=== PATIENT | male | born 1945 | race Caucasian/White ===

== ENCOUNTER 2021-09-26 11:06 | Emergency (ER) | payer OTHER ==
--- OUTSIDE RECORDS SUMMARY | 2021-09-26 11:16 | XMS REPORT | Continuity of Care Document ---
:1945 Author Organization [facility] t Address [address] [place] [address] [address]. [address] [place] [address] Care Team Providers Name Role Phone Messi Guillen Attending Clinician Unavailable Messi Guillen Attending Clinician Unavailable MADELEINE Attending Clinician Unavailable Thiago-Mbayo_A_AH Attending Clinician Unavailable SATURDAYARIANA Attending Clinician Unavailable Messi MURRAY Attending Clinician Unavailable Hany Miramontes DO Attending Clinician Lab, Fam Pob I Attending Clinician Unavailable Natalie HICKS, Nabil Attending Clinician Nabil PEREZ Attending Clinician Unavailable Messi Jim Attending Clinician Unavailable Doctor Unassigned, Name Attending Clinician Unavailable Chucky Montero MD Attending Clinician 2, Lab Attending Clinician Unavailable CHUCKY MONTERO Attending Clinician Unavailable CHUCKY MONTERO Attending Clinician Unavailable Neurology Attending Clinician Unavailable Messi Guillen Admitting Clinician Unavailable MADELEINE Admitting Clinician Unavailable Thiago-Mbayo_A_AH Admitting Clinician Unavailable JASS Admitting Clinician Unavailable Payers Payer Name Policy Type Policy Number Effective Date Expiration Date S [facility] OF [place] - [id number] 2019 [place] 00:00:00 (MEDICARE REPLACEMENT/ADVANT AGE - HMO) [employer] [place] [id number] 2020 PLUS CHOICE 00:00:00 Problems Condition Condition Condition Status Onset Resolution Last Treating Co mments Source Name Details Category Date Date Treatment Clinician Date Hyperchole Hyperchole Problem [facility] sterole[facility] sterolemia 4-06 Fa naren 00:00: Practic 00 e Gout Gout Problem Active [facility] Family 00:00: Practic 00 e 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 4-06 Fa naren disorder Disorder 00:00: Practi c 00 e Chronic Chronic Problem Active [facility] pain Pain 4-06 Family 00:00: Practic 00 e Essential Essential Problem Active Kang angelika hypertensi Hypertensi 4-06 Fa naren on on 00:00: Practic 00 e Benign Benign Problem Active [facility] prostatic Prostatic 4-06 Fami ly hyperplasi Hyperplasi 00:00: Pr actic a a 00 e 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 U nivers is is 1-11 ity of 00:00: [place] [facility] Lactic Lactic Disease Active 2016-09 Univers acid acid 1-11 it[facility] of increased increased 00:[place] [facility] Essential Essential Disease Active 2016-09 Uni vers hypertensi hypertensi 1-11 it y of on on 00:00: [place] [facility] Chest pain Chest pain Disease Active 2016-09 U nivers 1-10 ity of 00:00: [place] [facility] Branch Allergies, Adverse Reactions, Alerts Allergy Allergy Status Severity Reaction(s) Onset Inactive Treating Comm ents Source Name Type Date Date Clinician NO KNOWN Drug Active Univers ALLERGIE Class ity of S [facility] No Known Drug Active [facility] Social History Social Habit Start Date Stop Date Quantity Comments Source Sex Assigned At [facility]it y of [facility] Exposure to Not sure [facility] SARS-CoV-2 [facility] (event) [place] Tobacco use and 2020-08-01 2020-08-01 Never used Universit y of exposure 00:00:00 00:00:00 [facility] Alcohol intake 2020-08-01 2020-08-01 Current drinker Unive rsity of 00:00:00 00:00:00 of alcohol [place] [facility] (finding) Branch Alcohol Comment 2017-07-12 2017-07-1209/03 madelin Reyes y of 00:00:00 00:00:00 whiskey weekly [facility] Branch Smoking Status Start Date Stop Date Source Never smoker [facility] Medications Ordered Filled Start Stop Current Ordering Indication Dosage Frequency Signature Comments Components Source Medication Medication Date Date Medication? Clinician (SIG) Name Name atorvastati 2019-09 Yes 40mg Take 40 mg Univers n 40 mg 1-02 by mouth ity of tablet 14:57: at [place] 29 bedtime. Medical Branch acetaminoph 2019-09 Yes Take by Un valentín en 1-02 mouth ity of (TYLENOL) 14:57: every 6 [place] 325 mg 29 (six) Medical tablet hours as Branch needed. ibuprofen 2019-09 Yes 200mg Take 200 Uni vers 200 mg 1-02 mg by ity of tablet 14:57: mouth [place] 29 every 6 Medical (six) Branch hours as needed. atorvastati 2019-09 Yes 40mg Take 40 mg Univers n 40 mg 1-02 by mouth ity of tablet 14:57: at [place] 29 bedtime. Medical Branch acetaminoph 2019-09 Yes Take by Un valentín en 1-02 mouth ity of (TYLENOL) 14:57: every 6 [place] 325 mg 29 (six) Medical tablet hours as Branch needed. ibuprofen 2019-09 Yes 200mg Take 200 Uni vers 200 mg 1-02 mg by ity of tablet 14:57: mouth [place] 29 every 6 Medical (six) Branch hours as needed. atorvastati 2019-09 Yes 40mg Take 40 mg Univers n 40 mg 1-02 by mouth ity of tablet 14:57: at [place] 29 bedtime. Medical Branch acetaminoph 2019-09 Yes Take by Un valentín en 1-02 mouth ity of (TYLENOL) 14:57: every 6 [place] 325 mg 29 (six) Medical tablet hours as Branch needed. ibuprofen 2019-09 Yes 200mg Take 200 Uni vers 200 mg 1-02 mg by ity of tablet 14:57: mouth [place] 29 every 6 Medical (six) Branch hours as needed. atorvastati 2019-09 Yes 40mg Take 40 mg Univers n 40 mg 1-02 by mouth ity of tablet 14:57: at [place] 29 bedtime. Medical Branch acetaminoph 2019-09 Yes Take by Un valentín en 1-02 mouth ity of (TYLENOL) 14:57: every 6 [place] 325 mg 29 (six) Medical tablet hours as Branch needed. ibuprofen 2019-09 Yes 200mg Take 200 Uni vers 200 mg 1-02 mg by ity of tablet 14:57: mouth [place] 29 every 6 Medical (six) Branch hours as needed. atorvastati 2019-09 Yes 40mg Take 40 mg Univers n 40 mg 1-02 by mouth ity of tablet 14:57: at [place] 29 bedtime. Medical Branch acetaminoph 2019-09 Yes Take by Un valentín en 1-02 mouth ity of (TYLENOL) 14:57: every 6 [place] 325 mg 29 (six) Medical tablet hours as Branch needed. ibuprofen 2019-09 Yes 200mg Take 200 Uni vers 200 mg 1-02 mg by ity of tablet 14:57: mouth [place] 29 every 6 Medical (six) Branch hours as needed. atorvastati 2019-09 Yes 40mg Take 40 mg Univers n 40 mg 1-02 by mouth ity of tablet 14:57: at [place] 29 bedtime. Medical Branch acetaminoph 2019-09 Yes Take by Un valentín en 1-02 mouth ity of (TYLENOL) 14:57: every 6 [place] 325 mg 29 (six) Medical tablet hours as Branch needed. ibuprofen 2019-09 Yes 200mg Take 200 Uni vers 200 mg 1-02 mg by ity of tablet 14:57: mouth [place] 29 every 6 Medical (six) Branch hours as needed. atorvastati 2019-09 Yes 40mg Take 40 mg Univers n 40 mg 1-02 by mouth ity of tablet 14:57: at [place] 29 bedtime. Medical Branch acetaminoph 2019-09 Yes Take by Un valentín en 1-02 mouth ity of (TYLENOL) 14:57: every 6 [place] 325 mg 29 (six) Medical tablet hours as Branch needed. ibuprofen 2019-09 Yes 200mg Take 200 Uni vers 200 mg 1-02 mg by ity of tablet 14:57: mouth [place] 29 every 6 Medical (six) Branch hours as needed. atorvastati 2019-09 Yes 40mg Take 40 mg Univers n 40 mg 1-02 by mouth ity of tablet 14:57: at [place] 29 bedtime. Medical Branch acetaminoph 2019-09 Yes Take by Un valentín en 1-02 mouth ity of (TYLENOL) 14:57: every 6 [place] 325 mg 29 (six) Medical tablet hours as Branch needed. ibuprofen 2019-09 Yes 200mg Take 200 Uni vers 200 mg 1-02 mg by ity of tablet 14:57: mouth [place] 29 every 6 Medical (six) Branch hours as needed. atorvastati 2019-09 Yes 40mg Take 40 mg Univers n 40 mg 1-02 by mouth ity of tablet 14:57: at [place] 29 bedtime. Medical Branch acetaminoph 2019-09 Yes Take by Un valentín en 1-02 mouth ity of (TYLENOL) 14:57: every 6 [place] 325 mg 29 (six) Medical tablet hours as Branch needed. ibuprofen 2019-09 Yes 200mg Take 200 Uni vers 200 mg 1-02 mg by ity of tablet 14:57: mouth [place] 29 every 6 Medical (six) Branch hours as needed. atorvastati 2019-09 Yes 40mg Take 40 mg Univers n 40 mg 1-02 by mouth ity of tablet 14:57: at [place] 29 bedtime. Medical Branch acetaminoph 2019-09 Yes Take by Un valentín en 1-02 mouth ity of (TYLENOL) 14:57: every 6 [place] 325 mg 29 (six) Medical tablet hours as Branch needed. ibuprofen 2019-09 Yes 200mg Take 200 Uni vers 200 mg 1-02 mg by ity of tablet 14:57: mouth [place] 29 every 6 Medical (six) Branch hours as needed. atorvastati 2019-09 Yes 40mg Take 40 mg Univers n 40 mg 1-02 by mouth ity of tablet 14:57: at [place] 29 bedtime. Medical Branch acetaminoph 2019-09 Yes Take by Un valentín en 1-02 mouth ity of (TYLENOL) 14:57: every 6 [place] 325 mg 29 (six) Medical tablet hours as Branch needed. ibuprofen 2019-09 Yes 200mg Take 200 Uni vers 200 mg 1-02 mg by ity of tablet 14:57: mouth [place] 29 every 6 Medical (six) Branch hours as needed. atorvastati 2019-09 Yes 40mg Take 40 mg Univers n 40 mg 1-02 by mouth ity of tablet 14:57: at [place] 29 bedtime. Medical Branch acetaminoph 2019-09 Yes Take by Un valentín en 1-02 mouth ity of (TYLENOL) 14:57: every 6 [place] 325 mg 29 (six) Medical tablet hours as Branch needed. ibuprofen 2019-09 Yes 200mg Take 200 Uni vers 200 mg 1-02 mg by ity of tablet 14:57: mouth [place] 29 every 6 Medical (six) Branch hours as needed. atorvastati 2019-09 Yes 40mg Take 40 mg Univers n 40 mg 1-02 by mouth ity of tablet 14:57: at [place] 29 bedtime. Medical Branch acetaminoph 2019-09 Yes Take by Un valentín en 1-02 mouth ity of (TYLENOL) 14:57: every 6 [place] 325 mg 29 (six) Medical tablet hours as Branch needed. ibuprofen 2019-09 Yes 200mg Take 200 Uni vers 200 mg 1-02 mg by ity of tablet 14:57: mouth [place] 29 every 6 Medical (six) Branch hours as needed. atorvastati 2019-09 Yes 40mg Take 40 mg Univers n 40 mg 1-02 by mouth ity of tablet 14:57: at [place] 29 bedtime. Medical Branch acetaminoph 2019-09 Yes Take by Un valentín en 1-02 mouth ity of (TYLENOL) 14:57: every 6 [place] 325 mg 29 (six) Medical tablet hours as Branch needed. ibuprofen 2019-09 Yes 200mg Take 200 Uni vers 200 mg 1-02 mg by ity of tablet 14:57: mouth [place] 29 every 6 Medical (six) Branch hours as needed. atorvastati 2019-09 Yes 40mg Take 40 mg Univers n 40 mg 1-02 by mouth ity of tablet 14:57: at [place] 29 bedtime. Medical Branch acetaminoph 2019-09 Yes Take by Un valentín en 1-02 mouth ity of (TYLENOL) 14:57: every 6 [place] 325 mg 29 (six) Medical tablet hours as Branch needed. ibuprofen 2019-09 Yes 200mg Take 200 Uni vers 200 mg 1-02 mg by ity of tablet 14:57: mouth [place] 29 every 6 Medical (six) Branch hours as needed. atorvastati 2019-09 Yes 40mg Take 40 mg Univers n 40 mg 1-02 by mouth ity of tablet 14:57: at [place] 29 bedtime. Medical Branch acetaminoph 2019-09 Yes Take by Un valentín en 1-02 mouth ity of (TYLENOL) 14:57: every 6 [place] 325 mg 29 (six) Medical tablet hours as Branch needed. ibuprofen 2019-09 Yes 200mg Take 200 Uni vers 200 mg 1-02 mg by ity of tablet 14:57: mouth [place] 29 every 6 Medical (six) Branch hours as needed. foLIC acid 2019-09 Yes 1mg Take 1 mg Un valentín 1 mg tablet 02 by mouth ity of 14:53: daily. [address] Branch furosemide 2019-09 Yes 20mg Take 20 mg U nivers 20 mg 1-02 by mouth ity of tablet 14:53: weekly. [address] Branch magnesium 2019-09 Yes 400mg Take 400 Uni vers oxide 400 1-02 mg by ity of mg (241.3 14:53: mouth 2 [place] mg 03 (two) Medical magnesium) times Branch tablet daily. multivitami 2019-09 Yes 1{capsu Take 1 U nivers n capsule 02 le} capsule by ity of 14:53: mouth [place] 03 daily. Medical Branch Thiamine 2019-09 Yes Take by Unive rs Mononitrate 02 mouth ity of 100 mg Tab 14:53: daily. [address] Branch SERTRALINE 2019-09 Yes 50mg Take 50 mg U nivers HCL (ZOLOFT 02 by mouth ity of ORAL) 14:53: daily. [address] Branch allopurinol 2019-09 Yes 300mg Take 300 U nivers 300 mg 1-02 mg by ity of tablet 14:53: mouth [place] 03 daily. Medical Branch omeprazole 2019-09 Yes 40mg Take 40 mg U nivers 40 mg -02 by mouth ity of capsule 14:53: daily. [address] Branch amLODIPine 2019-09 Yes 2.5mg Take 2.5 Un valentín 2.5 mg 1-02 mg by ity of tablet 14:53: mouth 2 [place] 03 (two) Medical times Branch daily. atenolol 25 2019-09 Yes 25mg Take 25 mg Univers mg tablet 02 by mouth ity of 14:53: daily. [address] Branch foLIC acid 2019-09 Yes 1mg Take 1 mg Un valentín 1 mg tablet 02 by mouth ity of 14:53: daily. [address] furosemide 2019-09 Yes 20mg Take 20 mg U nivers 20 mg 1-02 by mouth ity of tablet 14:53: weekly. [address] Branch magnesium 2019-09 Yes 400mg Take 400 Uni vers oxide 400 1-02 mg by ity of mg (241.3 14:53: mouth 2 [place] mg 03 (two) Medical magnesium) times [place] tablet daily. multivitami 2019-09 Yes 1{capsu Take 1 U nivers n capsule 1- le} capsule by ity of 14:53: mouth daily. Medical Branch Thiamine 2019-09 Yes Take by Unive rs Mononitrate 1-02 mouth ity of 100 mg Tab 14:53: daily. [place] [facility] SERTRALINE 2019-09 Yes 50mg Take 50 mg U nivers HCL (ZOLOFT 02 by mouth ity of ORAL) 14:53: daily. [place] [facility] allopurinol 2019-09 Yes 300mg Take 300 U nivers 300 mg 1-02 mg by ity of tablet 14:53: mouth daily. Medical Branch omeprazole 2019-09 Yes 40mg Take 40 mg U nivers 40 mg 02 by mouth ity of capsule 14:53: daily. [place] [facility] Branch amLODIPine 2019-09 Yes 2.5mg Take 2.5 Un valentín 2.5 mg 1-02 mg by ity of tablet 14:53: mouth 2 [place] (two) Medical times Branch daily. atenolol 25 2019-09 Yes 25mg Take 25 mg Univers mg tablet 02 by mouth ity of 14:53: daily. [place] [facility] foLIC acid 2019-09 Yes 1mg Take 1 mg Un valentín 1 mg tablet 02 by mouth ity of 14:53: daily. [place] [facility] furosemide 2019-09 Yes 20mg Take 20 mg U nivers 20 mg -02 by mouth ity of tablet 14:53: weekly. [place] [facility] Branch magnesium 2019-09 Yes 400mg Take 400 Uni vers oxide 400 1-02 mg by ity of mg (241.3 14:53: mouth 2 [place] mg 03 (two) Medical magnesium) times [place] tablet daily. multivitami 2019-09 Yes 1{capsu Take 1 U nivers n capsule 1- le} capsule by ity of 14:53: mouth [place] daily. Medical Branch Thiamine 2019-09 Yes Take by Unive rs Mononitrate 1-02 mouth ity of 100 mg Tab 14:53: daily. [place] [facility] Branch SERTRALINE 2019-09 Yes 50mg Take 50 mg U nivers HCL (ZOLOFT 1-02 by mouth ity of ORAL) 14:53: daily. [address] Branch allopurinol 2019-09 Yes 300mg Take 300 U nivers 300 mg 1-02 mg by ity of tablet 14:53: mouth [place] daily. Medical Branch omeprazole 2019-09 Yes 40mg Take 40 mg U nivers 40 mg 1-02 by mouth ity of capsule 14:53: daily. [address] amLODIPine 2019-09 Yes 2.5mg Take 2.5 Un valentín 2.5 mg 1-02 mg by ity of tablet 14:53: mouth 2 [place] 03 (two) Medical times Branch daily. atenolol 25 2019-09 Yes 25mg Take 25 mg Univers mg tablet 02 by mouth ity of 14:53: daily. [address] foLIC acid 2019-09 Yes 1mg Take 1 mg Un valentín 1 mg tablet 02 by mouth ity of 14:53: daily. [address] furosemide 2019-09 Yes 20mg Take 20 mg U nivers 20 mg -02 by mouth ity of tablet 14:53: weekly. [address] magnesium 2019-09 Yes 400mg Take 400 Uni vers oxide 400 1-02 mg by ity of mg (241.3 14:53: mouth 2 [place] [address] (two) Medical magnesium) times Branch tablet daily. multivitami 2019-09 Yes 1{capsu Take 1 U nivers n capsule 02 le} capsule by ity of 14:53: mouth daily. Medical Branch Thiamine 2019-09 Yes Take by Unive rs Mononitrate 1-02 mouth ity of 100 mg Tab 14:53: daily. [address] Branch SERTRALINE 2019-09 Yes 50mg Take 50 mg U nivers HCL (ZOLOFT 1-02 by mouth ity of ORAL) 14:53: daily. [address] Branch allopurinol 2019-09 Yes 300mg Take 300 U nivers 300 mg 1-02 mg by ity of tablet 14:53: mouth [place] 03 daily. Medical Branch omeprazole 2019-09 Yes 40mg Take 40 mg U nivers 40 mg 1-02 by mouth ity of capsule 14:53: daily. [address] amLODIPine 2019-09 Yes 2.5mg Take 2.5 Un valentín 2.5 mg 1-02 mg by ity of tablet 14:53: mouth 2 [place] [address] (two) Medical times Branch daily. atenolol 25 2019-09 Yes 25mg Take 25 mg Univers mg tablet 02 by mouth ity of 14:53: daily. [address] foLIC acid 2019-09 Yes 1mg Take 1 mg Un valentín 1 mg tablet 02 by mouth ity of 14:53: daily. [address] furosemide 2019-09 Yes 20mg Take 20 mg U nivers 20 mg 1-02 by mouth ity of tablet 14:53: weekly. [address] magnesium 2019-09 Yes 400mg Take 400 Uni vers oxide 400 1-02 mg by ity of mg (241.3 14:53: mouth 2 [place] [address] (two) Medical magnesium) times [place] tablet daily. multivitami 2019-09 Yes 1{capsu Take 1 U nivers n capsule 09-03 le} capsule by ity of 14:53: mouth [place] [address] daily. Medical Branch Thiamine 2019-09 Yes Take by Unive rs Mononitrate 02 mouth ity of 100 mg Tab 14:53: daily. [address] SERTRALINE 2019-09 Yes 50mg Take 50 mg U nivers HCL (ZOLOFT 02 by mouth ity of ORAL) 14:53: daily. [address] allopurinol 2019-09 Yes 300mg Take 300 U nivers 300 mg 1-02 mg by ity of tablet 14:53: mouth [place] [address] daily. Medical Branch omeprazole 2019-09 Yes 40mg Take 40 mg U nivers 40 mg -02 by mouth ity of capsule 14:53: daily. [address] amLODIPine 2019-09 Yes 2.5mg Take 2.5 Un valentín 2.5 mg 1-02 mg by ity of tablet 14:53: mouth 2 [place] 03 (two) Medical times Branch daily. atenolol 25 2019-09 Yes 25mg Take 25 mg Univers mg tablet 02 by mouth ity of 14:53: daily. [address] foLIC acid 2019-09 Yes 1mg Take 1 mg Un valentín 1 mg tablet 02 by mouth ity of 14:53: daily. [address] furosemide 2019-09 Yes 20mg Take 20 mg U nivers 20 mg 1-02 by mouth ity of tablet 14:53: weekly. [place] [facility] magnesium 2019-09 Yes 400mg Take 400 Uni vers oxide 400 1-02 mg by ity of mg (241.3 14:53: mouth 2 [place] mg 03 (two) Medical magnesium) times Branch tablet daily. multivitami 2019-09 Yes 1{capsu Take 1 U nivers n capsule 1-02 le} capsule by ity of 14:53: mouth [place] daily. Medical Branch Thiamine 2019-09 Yes Take by Unive rs Mononitrate 1-02 mouth ity of 100 mg Tab 14:53: daily. [place] [facility] Branch SERTRALINE 2019-09 Yes 50mg Take 50 mg U nivers HCL (ZOLOFT 02 by mouth ity of ORAL) 14:53: daily. [place] [facility] Branch allopurinol 2019-09 Yes 300mg Take 300 U nivers 300 mg 1-02 mg by ity of tablet 14:53: mouth [place] daily. Medical Branch omeprazole 2019-09 Yes 40mg Take 40 mg U nivers 40 mg 02 by mouth ity of capsule 14:53: daily. [place] [facility] Branch amLODIPine 2019-09 Yes 2.5mg Take 2.5 Un valentín 2.5 mg 1-02 mg by ity of tablet 14:53: mouth 2 [place] (two) Medical times Branch daily. atenolol 25 2019-09 Yes 25mg Take 25 mg Univers mg tablet 02 by mouth ity of 14:53: daily. [place] [facility] Branch foLIC acid 2019-09 Yes 1mg Take 1 mg Un valentín 1 mg tablet 02 by mouth ity of 14:53: daily. [place] [facility] Branch furosemide 2019-09 Yes 20mg Take 20 mg U nivers 20 mg -02 by mouth ity of tablet 14:53: weekly. [place] [facility] Branch magnesium 2019-09 Yes 400mg Take 400 Uni vers oxide 400 1-02 mg by ity of mg (241.3 14:53: mouth 2 [place] mg (two) Medical magnesium) times [place] tablet daily. multivitami 2019-09 Yes 1{capsu Take 1 U nivers n capsule 1-02 le} capsule by ity of 14:53: mouth [place] daily. Medical Branch Thiamine 2019-09 Yes Take by Unive rs Mononitrate 1-02 mouth ity of 100 mg Tab 14:53: daily. [place] [facility] Branch SERTRALINE 2019-09 Yes 50mg Take 50 mg U nivers HCL (ZOLOFT 1-02 by mouth ity of ORAL) 14:53: daily. [place] [facility] Branch allopurinol 2019-09 Yes 300mg Take 300 U nivers 300 mg 1-02 mg by ity of tablet 14:53: mouth [place] daily. Medical Branch omeprazole 2019-09 Yes 40mg Take 40 mg U nivers 40 mg 1-02 by mouth ity of capsule 14:53: daily. [place] [facility] Branch amLODIPine 2019-09 Yes 2.5mg Take 2.5 Un valentín 2.5 mg 1-02 mg by ity of tablet 14:53: mouth 2 [place] 03 (two) Medical times Branch daily. atenolol 25 2019-09 Yes 25mg Take 25 mg Univers mg tablet 02 by mouth ity of 14:53: daily. [place] [facility] foLIC acid 2019-09 Yes 1mg Take 1 mg Un valentín 1 mg tablet 02 by mouth ity of 14:53: daily. [address] furosemide 2019-09 Yes 20mg Take 20 mg U nivers 20 mg 1-02 by mouth ity of tablet 14:53: weekly. [address] Branch magnesium 2019-09 Yes 400mg Take 400 Uni vers oxide 400 1-02 mg by ity of mg (241.3 14:53: mouth 2 [facility] 03 (two) Medical magnesium) times Branch tablet daily. multivitami 2019-09 Yes 1{capsu Take 1 U nivers n capsule 02 le} capsule by ity of 14:53: mouth daily. Medical Branch Thiamine 2019-09 Yes Take by Unive rs Mononitrate 1-02 mouth ity of 100 mg Tab 14:53: daily. [place] [facility] Branch SERTRALINE 2019-09 Yes 50mg Take 50 mg U nivers HCL (ZOLOFT 1-02 by mouth ity of ORAL) 14:53: daily. [address] Branch allopurinol 2019-09 Yes 300mg Take 300 U nivers 300 mg 1-02 mg by ity of tablet 14:53: mouth daily. Medical Branch omeprazole 2019-09 Yes 40mg Take 40 mg U nivers 40 mg 1-02 by mouth ity of capsule 14:53: daily. [address] amLODIPine 2019-09 Yes 2.5mg Take 2.5 Un valentín 2.5 mg 1-02 mg by ity of tablet 14:53: mouth 2 [place] 03 (two) Medical times Branch daily. atenolol 25 2019-09 Yes 25mg Take 25 mg Univers mg tablet 02 by mouth ity of 14:53: daily. [address] foLIC acid 2019-09 Yes 1mg Take 1 mg Un valentín 1 mg tablet 02 by mouth ity of 14:53: daily. [address] Branch furosemide 2019-09 Yes 20mg Take 20 mg U nivers 20 mg -02 by mouth ity of tablet 14:53: weekly. [address] Branch magnesium 2019-09 Yes 400mg Take 400 Uni vers oxide 400 1-02 mg by ity of mg (241.3 14:53: mouth 2 [place] [address] (two) Medical magnesium) times [place] tablet daily. multivitami 2019-09 Yes 1{capsu Take 1 U nivers n capsule 09-03 le} capsule by ity of 14:53: mouth [place] [address] daily. Medical Branch Thiamine 2019-09 Yes Take by Unive rs Mononitrate 02 mouth ity of 100 mg Tab 14:53: daily. [address] Branch SERTRALINE 2019-09 Yes 50mg Take 50 mg U nivers HCL (ZOLOFT 02 by mouth ity of ORAL) 14:53: daily. [address] Branch allopurinol 2019-09 Yes 300mg Take 300 U nivers 300 mg 1-02 mg by ity of tablet 14:53: mouth [place] daily. [facility] Branch omeprazole 2019-09 Yes 40mg Take 40 mg U nivers 40 mg 02 by mouth ity of capsule 14:53: daily. [address] amLODIPine 2019-09 Yes 2.5mg Take 2.5 Un valentín 2.5 mg 1-02 mg by ity of tablet 14:53: mouth 2 [place] 03 (two) Medical times Branch daily. atenolol 25 2019-09 Yes 25mg Take 25 mg Univers mg tablet 02 by mouth ity of 14:53: daily. [address] foLIC acid 2019-09 Yes 1mg Take 1 mg Un valentín 1 mg tablet 02 by mouth ity of 14:53: daily. [address] furosemide 2019-09 Yes 20mg Take 20 mg U nivers 20 mg 1-02 by mouth ity of tablet 14:53: weekly. [place] [facility] magnesium 2019-09 Yes 400mg Take 400 Uni vers oxide 400 1-02 mg by ity of mg (241.3 14:53: mouth 2 [place] mg 03 (two) Medical magnesium) times Branch tablet daily. multivitami 2019-09 Yes 1{capsu Take 1 U nivers n capsule 1-02 le} capsule by ity of 14:53: mouth [place] daily. Medical Branch Thiamine 2019-09 Yes Take by Unive rs Mononitrate 1-02 mouth ity of 100 mg Tab 14:53: daily. [place] [facility] Branch SERTRALINE 2019-09 Yes 50mg Take 50 mg U nivers HCL (ZOLOFT -02 by mouth ity of ORAL) 14:53: daily. [place] [facility] Branch allopurinol 2019-09 Yes 300mg Take 300 U nivers 300 mg 1-02 mg by ity of tablet 14:53: mouth [place] daily. Medical Branch omeprazole 2019-09 Yes 40mg Take 40 mg U nivers 40 mg -02 by mouth ity of capsule 14:53: daily. [place] [facility] Branch amLODIPine 2019-09 Yes 2.5mg Take 2.5 Un valentín 2.5 mg 1-02 mg by ity of tablet 14:53: mouth 2 [place] [address] (two) Medical times Branch daily. atenolol 25 2019-09 Yes 25mg Take 25 mg Univers mg tablet 02 by mouth ity of 14:53: daily. [place] [facility] foLIC acid 2019-09 Yes 1mg Take 1 mg Un valentín 1 mg tablet 02 by mouth ity of 14:53: daily. [place] [facility] Branch furosemide 2019-09 Yes 20mg Take 20 mg U nivers 20 mg 1-02 by mouth ity of tablet 14:53: weekly. [address] Branch magnesium 2019-09 Yes 400mg Take 400 Uni vers oxide 400 1-02 mg by ity of mg (241.3 14:53: mouth 2 [place] mg 03 (two) Medical magnesium) times Branch tablet daily. multivitami 2019-09 Yes 1{capsu Take 1 U nivers n capsule 1-02 le} capsule by ity of 14:53: mouth [place] daily. Medical Branch Thiamine 2020-1 Yes Take by Unive rs Mononitrate 1-02 mouth ity of 100 mg Tab 14:53: daily. [place] [facility] Branch SERTRALINE 2019-09 Yes 50mg Take 50 mg U nivers HCL (ZOLOFT 1-02 by mouth ity of ORAL) 14:53: daily. [place] [facility] Branch allopurinol 2019-09 Yes 300mg Take 300 U nivers 300 mg 1-02 mg by ity of tablet 14:53: mouth daily. Medical Branch omeprazole 2019-09 Yes 40mg Take 40 mg U nivers 40 mg 1-02 by mouth ity of capsule 14:53: daily. [place] [facility] Branch amLODIPine 2019-09 Yes 2.5mg Take 2.5 Un valentín 2.5 mg 1-02 mg by ity of tablet 14:53: mouth 2 [place] 03 (two) Medical times Branch daily. atenolol 25 2019-09 Yes 25mg Take 25 mg Univers mg tablet 02 by mouth ity of 14:53: daily. [address] foLIC acid 2019-09 Yes 1mg Take 1 mg Un valentín 1 mg tablet 02 by mouth ity of 14:53: daily. [address] furosemide 2019-09 Yes 20mg Take 20 mg U nivers 20 mg -02 by mouth ity of tablet 14:53: weekly. [address] Branch magnesium 2019-09 Yes 400mg Take 400 Uni vers oxide 400 1-02 mg by ity of mg (241.3 14:53: mouth 2 [facility] 03 (two) Medical magnesium) times Branch tablet daily. multivitami 2019-09 Yes 1{capsu Take 1 U nivers n capsule 02 le} capsule by ity of 14:53: mouth daily. Medical Branch Thiamine 2019-09 Yes Take by Unive rs Mononitrate 1-02 mouth ity of 100 mg Tab 14:53: daily. [place] [facility] Branch SERTRALINE 2019-09 Yes 50mg Take 50 mg U nivers HCL (ZOLOFT 1-02 by mouth ity of ORAL) 14:53: daily. [address] Branch allopurinol 2019-09 Yes 300mg Take 300 U nivers 300 mg 1-02 mg by ity of tablet 14:53: mouth daily. Medical Branch omeprazole 2019-09 Yes 40mg Take 40 mg U nivers 40 mg 1-02 by mouth ity of capsule 14:53: daily. [place] [facility] Branch amLODIPine 2019-09 Yes 2.5mg Take 2.5 Un valentín 2.5 mg 1-02 mg by ity of tablet 14:53: mouth 2 [place] 03 (two) Medical times Branch daily. atenolol 25 2019-09 Yes 25mg Take 25 mg Univers mg tablet -02 by mouth ity of 14:53: daily. [place] [facility] foLIC acid 2019-09 Yes 1mg Take 1 mg Un valentín 1 mg tablet 02 by mouth ity of 14:53: daily. [address] furosemide 2019-09 Yes 20mg Take 20 mg U nivers 20 mg 1-02 by mouth ity of tablet 14:53: weekly. [address] Branch magnesium 2019-09 Yes 400mg Take 400 Uni vers oxide 400 1-02 mg by ity of mg (241.3 14:53: mouth 2 [place] [address] (two) [facility] magnesium) times [place] tablet daily. multivitami 2019-09 Yes 1{capsu Take 1 U nivers n capsule 09-03 le} capsule by ity of 14:53: mouth [place] daily. Medical Branch Thiamine 2019-09 Yes Take by Unive rs Mononitrate 02 mouth ity of 100 mg Tab 14:53: daily. [address] Branch SERTRALINE 2019-09 Yes 50mg Take 50 mg U nivers HCL (ZOLOFT 02 by mouth ity of ORAL) 14:53: daily. [place] [facility] allopurinol 2019-09 Yes 300mg Take 300 U nivers 300 mg 1-02 mg by ity of tablet 14:53: mouth [place] daily. Medical Branch omeprazole 2019-09 Yes 40mg Take 40 mg U nivers 40 mg -02 by mouth ity of capsule 14:53: daily. [place] [facility] amLODIPine 2019-09 Yes 2.5mg Take 2.5 Un valentín 2.5 mg 1-02 mg by ity of tablet 14:53: mouth 2 [place] 03 (two) Medical times Branch daily. atenolol 25 2019-09 Yes 25mg Take 25 mg Univers mg tablet 02 by mouth ity of 14:53: daily. [address] foLIC acid 2019-09 Yes 1mg Take 1 mg Un valentín 1 mg tablet -02 by mouth ity of 14:53: daily. [address] Branch furosemide 2019-09 Yes 20mg Take 20 mg U nivers 20 mg 1-02 by mouth ity of tablet 14:53: weekly. [place] [facility] Branch magnesium 2019-09 Yes 400mg Take 400 Uni vers oxide 400 1-02 mg by ity of mg (241.3 14:53: mouth 2 [place] mg 03 (two) Medical magnesium) times [place] tablet daily. multivitami 2019-09 Yes 1{capsu Take 1 U nivers n capsule 1-02 le} capsule by ity of 14:53: mouth [place] daily. Medical Branch Thiamine 2019-09 Yes Take by Unive rs Mononitrate -02 mouth ity of 100 mg Tab 14:53: daily. [place] [facility] Branch SERTRALINE 2019-09 Yes 50mg Take 50 mg U nivers HCL (ZOLOFT 02 by mouth ity of ORAL) 14:53: daily. [place] [facility] Branch allopurinol 2019-09 Yes 300mg Take 300 U nivers 300 mg 1-02 mg by ity of tablet 14:53: mouth [place] daily. Medical Branch omeprazole 2019-09 Yes 40mg Take 40 mg U nivers 40 mg -02 by mouth ity of capsule 14:53: daily. [address] Branch amLODIPine 2019-09 Yes 2.5mg Take 2.5 Un valentín 2.5 mg 1-02 mg by ity of tablet 14:53: mouth 2 [place] 03 (two) Medical times Branch daily. atenolol 25 2019-09 Yes 25mg Take 25 mg Univers mg tablet 02 by mouth ity of 14:53: daily. [address] foLIC acid 2019-09 Yes 1mg Take 1 mg Un valentín 1 mg tablet 02 by mouth ity of 14:53: daily. [address] furosemide 2019-09 Yes 20mg Take 20 mg U nivers 20 mg 1-02 by mouth ity of tablet 14:53: weekly. [address] Branch magnesium 2019-09 Yes 400mg Take 400 Uni vers oxide 400 1-02 mg by ity of mg (241.3 14:53: mouth 2 [place] mg 03 (two) Medical magnesium) times [place] tablet daily. multivitami 2019-09 Yes 1{capsu Take 1 U nivers n capsule 1-02 le} capsule by ity of 14:53: mouth [place] daily. Medical Branch Thiamine 2019-09 Yes Take by Unive rs Mononitrate 1-02 mouth ity of 100 mg Tab 14:53: daily. [place] Medical Branch SERTRALINE 2019-09 Yes 50mg Take 50 mg U nivers HCL (ZOLOFT 1-02 by mouth ity of ORAL) 14:53: daily. [place] Medical Branch allopurinol 2019-09 Yes 300mg Take 300 U nivers 300 mg 1-02 mg by ity of tablet 14:53: mouth [place] daily. Medical Branch omeprazole 2019-09 Yes 40mg Take 40 mg U nivers 40 mg 1-02 by mouth ity of capsule 14:53: daily. [place] Medical [facility] amLODIPine 2019-09 Yes 2.5mg Take 2.5 Un valentín 2.5 mg 1-02 mg by ity of tablet 14:53: mouth 2 [place] 03 (two) Medical times Branch daily. atenolol 25 2019-09 Yes 25mg Take 25 mg Univers mg tablet 02 by mouth ity of 14:53: daily. [place] Medical Branch foLIC acid 2019-09 Yes 1mg Take 1 mg Un valentín 1 mg tablet 02 by mouth ity of 14:53: daily. [place] [facility] furosemide 2019-09 Yes 20mg Take 20 mg U nivers 20 mg -02 by mouth ity of tablet 14:53: weekly. [place] Medical Branch magnesium 2019-09 Yes 400mg Take 400 Uni vers oxide 400 1-02 mg by ity of mg (241.3 14:53: mouth 2 [facility] 03 (two) Medical magnesium) times Branch tablet daily. multivitami 2019-09 Yes 1{capsu Take 1 U nivers n capsule 1-02 le} capsule by ity of 14:53: mouth daily. Medical Branch Thiamine 2019-09 Yes Take by Unive rs Mononitrate 1-02 mouth ity of 100 mg Tab 14:53: daily. [place] Medical [facility] SERTRALINE 2019-09 Yes 50mg Take 50 mg U nivers HCL (ZOLOFT 1-02 by mouth ity of ORAL) 14:53: daily. [place] Medical Branch allopurinol 2019-09 Yes 300mg Take 300 U nivers 300 mg 1-02 mg by ity of tablet 14:53: mouth daily. Medical Branch omeprazole 2019-09 Yes 40mg Take 40 mg U nivers 40 mg 1-02 by mouth ity of capsule 14:53: daily. [place] [facility] Branch amLODIPine 2020- Yes 2.5mg Take 2.5 Un valentín 2.5 mg 1-02 mg by ity of tablet 14:53: mouth 2 [place] 03 (two) Medical times Branch daily. atenolol 25 2020- Yes 25mg Take 25 mg Univers mg tablet 1-02 by mouth ity of 14:53: daily. [place] Medical Branch gabapentin 2020- Yes [id number] 100mg Take 1 Univers 100 mg 1-02 capsule by ity of capsule 00:00: mouth 3 [place] (three) Medical times Branch daily. gabapentin 2020- Yes [id number] 100mg Take 1 Univers 100 mg 1-02 capsule by ity of capsule 00:00: mouth 3 [place] (three) Medical times Branch daily. gabapentin 2019- Yes [id number] 100mg Take 1 Univers 100 mg 1-02 capsule by ity of capsule 00:00: mouth 3 [place] (three) Medical times Branch daily. gabapentin 2020- Yes [id number] 100mg Take 1 Univers 100 mg 1-02 capsule by ity of capsule 00:00: mouth 3 [place] (three) Medical times Branch daily. gabapentin 2020-1 Yes [id number] 100mg Take 1 Univers 100 mg 1-02 capsule by ity of capsule 00:00: mouth 3 [place] (three) Medical times Branch daily. gabapentin 2020- Yes [id number] 100mg Take 1 Univers 100 mg 1-02 capsule by ity of capsule 00:00: mouth 3 [place] (three) Medical times Branch daily. gabapentin 2020- Yes [id number] 100mg Take 1 Univers 100 mg 1-02 capsule by ity of capsule 00:00: mouth 3 [place] (three) Medical times Branch daily. gabapentin 2020-1 Yes [id number] 100mg Take 1 Univers 100 mg 1-02 capsule by ity of capsule 00:00: mouth 3 [place] (three) Medical times Branch daily. gabapentin 2020-1 Yes [id number] 100mg Take 1 Univers 100 mg 1-02 capsule by ity of capsule 00:00: mouth 3 [place] (three) Medical times Branch daily. gabapentin 2020- Yes [id number] 100mg Take 1 Univers 100 mg 1-02 capsule by ity of capsule 00:00: mouth 3 [place] 00 (three) Medical times Branch daily. gabapentin 2020-1 Yes [id number] 100mg Take 1 Univers 100 mg 1-02 capsule by ity of capsule 00:00: mouth 3 [place] (three) Medical times Branch daily. gabapentin 2020-1 Yes [id number] 100mg Take 1 Univers 100 mg 1-02 capsule by ity of capsule 00:00: mouth 3 [place] 00 (three) Medical times Branch daily. gabapentin 2020-1 Yes [id number] 100mg Take 1 Univers 100 mg 1-02 capsule by ity of capsule 00:00: mouth 3 [place] (three) Medical times Branch daily. gabapentin 2020-1 Yes [id number] 100mg Take 1 Univers 100 mg 1-02 capsule by ity of capsule 00:00: mouth 3 [place] ([facility]) Medical times Branch daily. gabapentin 2020-1 Yes [id number] 100mg Take 1 Univers 100 mg 1-02 capsule by ity of capsule 00:00: mouth 3 [place] ([facility]) Medical times [place] daily. gabapentin 2020-1 Yes [id number] 100mg Take 1 Univers 100 mg 1-02 capsule by ity of capsule 00:00: mouth 3 [place] (three) Medical times [place] daily. SERTRALINE 2019-0 Yes 50mg Take 50 mg U nivers HCL (ZOLOFT 4-17 by mouth ity of ORAL) 16:42: daily. [address] SERTRALINE 2019-0 Yes 50mg Take 50 mg U nivers HCL (ZOLOFT 4-17 by mouth ity of ORAL) 16:42: daily. [address] SERTRALINE 2019-0 Yes 50mg Take 50 mg U nivers HCL (ZOLOFT 4-17 by mouth ity of ORAL) 16:42: daily. [address] Thiamine 2019-0 Yes Take by Unive rs Mononitrate 4-17 mouth ity of 100 mg Tab 16:42: daily. [address] Thiamine 2019-0 Yes Take by Unive rs Mononitrate 4-17 mouth ity of 100 mg Tab 16:42: daily. [address] Thiamine 2019-0 Yes Take by Unive rs Mononitrate 4-17 mouth ity of 100 mg Tab 16:42: daily. [address] allopurinol 2019-0 Yes 300mg Take 300 U nivers 300 mg 4-17 mg by ity of tablet 16:41: mouth [place] 48 daily. Medical Branch omeprazole [id number] Yes 40mg Take 40 mg U nivers 40 mg 4-17 by mouth ity of capsule 16:41: daily. [place] [address] Medical Branch multivitami 20190 Yes 1{capsu Take 1 U nivers n capsule 4-17 le} capsule by ity of 16:41: mouth [place] 48 daily. Medical Branch allopurinol 2019 Yes 300mg Take 300 U nivers 300 mg 4-17 mg by ity of tablet 16:41: mouth [place] 48 daily. Medical Branch omeprazole Yes 40mg Take 40 mg U nivers 40 mg 4-17 by mouth ity of capsule 16:41: daily. [address] Branch multivitami 0 Yes 1{capsu Take 1 U nivers n capsule 4-17 le} capsule by ity of 16:41: mouth [place] 48 daily. Medical Branch allopurinol Yes 300mg Take 300 U nivers 300 mg 4-17 mg by ity of tablet 16:41: mouth [place] 48 daily. Medical Branch omeprazole Yes 40mg Take 40 mg U nivers 40 mg 4-17 by mouth ity of capsule 16:41: daily. [address] Branch multivitami 0 Yes 1{capsu Take 1 U nivers n capsule 4-17 le} capsule by ity of 16:41: mouth [place] 48 daily. Medical Branch amLODIPine Yes 2.5mg Take 2.5 Un valentín 2.5 mg 4-17 mg by ity of tablet 16:41: mouth 2 [place] [address] (two) Medical times Branch daily. atenolol 25 Yes 25mg Take 25 mg Univers mg tablet 4-17 by mouth ity of 16:41: daily. [address] Branch foLIC acid 0 Yes 1mg Take 1 mg Un valentín 1 mg tablet 4-17 by mouth ity of 16:41: daily. [address] Branch furosemide 0 Yes 20mg Take 20 mg U nivers 20 mg 4-17 by mouth ity of tablet 16:41: weekly. [address] Branch magnesium Yes 400mg Take 400 Uni vers oxide 400 4-17 mg by ity of mg (241.3 16:41: mouth 2 [place] [address] (two) Medical magnesium) times Branch tablet daily. amLODIPine 0 Yes 2.5mg Take 2.5 Un valentín 2.5 mg 4-17 mg by ity of tablet 16:41: mouth 2 [place] [address] [place] Medical times Branch daily. atenolol 25 Yes 25mg Take 25 mg Univers mg tablet 4-17 by mouth ity of 16:41: daily. [address] foLIC acid 2019-0 Yes 1mg Take 1 mg Un valentín 1 mg tablet 4-17 by mouth ity of 16:41: daily. [address] furosemide 2019-0 Yes 20mg Take 20 mg U nivers 20 mg 4-17 by mouth ity of tablet 16:41: weekly. [address] magnesium 2018- Yes 400mg Take 400 Uni vers oxide 400 4-17 mg by ity of mg (241.3 16:41: mouth 2 [place] mg (two) Medical magnesium) times [place] tablet daily. amLODIPine 2019 Yes 2.5mg Take 2.5 Un valentín 2.5 mg 4-17 mg by ity of tablet 16:41: mouth 2 [place] [address] ([place] Medical times Branch daily. atenolol Yes 25mg Take 25 mg Univers mg tablet 4-17 by mouth ity of 16:41: daily. [address] foLIC acid 2018-0 Yes 1mg Take 1 mg Un valentín 1 mg tablet 4-17 by mouth ity of 16:41: daily. [address] furosemide 0 Yes 20mg Take 20 mg U nivers 20 mg 4-17 by mouth ity of tablet 16:41: weekly. [address] magnesium 2018-0 Yes 400mg Take 400 Uni vers oxide 400 4-17 mg by ity of mg (241.3 16:41: mouth 2 [place] mg (two) Medical magnesium) times Branch tablet daily. clonazePAM 2019-0 Yes [id number] .5mg Take 1 U nivers (KLONOPIN) 4-08 tablet by ity of 0.5 mg 00:00: mouth as [place] tablet 00 needed for Medical Other Branch (Anxiety not to exceed 3 times a day). clonazePAM 2019-0 Yes [id number] .5mg Take 1 U nivers (KLONOPIN) 4-08 tablet by ity of 0.5 mg 00:00: mouth as [place] tablet 00 needed for Medical Other Branch (Anxiety not to exceed 3 times a day). clonazePAM Yes [id number] .5mg Take 1 U nivers (KLONOPIN) -08 tablet by ity of 0.5 mg 00:00: mouth as [place] tablet 00 needed for Medical Other Branch (Anxiety not to exceed 3 times a day). clonazePAM 2020- No [id number] .5mg Take 1 Univers (KLONOPIN) 12-08 tablet by ity of 0.5 mg 00:00: 00:00 mouth as [place] tablet 00 :00 needed for Medical Other Branch (Anxiety not to exceed 3 times a day). clonazePAM 2019- No [id number] .5mg Take 1 Univers (KLONOPIN) 12-08 tablet by ity of 0.5 mg 00:00: 00:00 mouth as [place] tablet 00 :00 needed for Medical Other Branch (Anxiety not to exceed 3 times a day). allopurinol allopurinol No 1 Q1D allopurino [facility] 100 mg 100 mg l 100 mg Family tablet Take tablet Take tablet Practic 1 tablet 1 tablet Take 1 e every day every day tablet by oral by oral every day route. route. by oral route. aspirin 81 aspirin 81 No 1 Q1D aspirin 81 [place] mg mg mg Family tablet,quan tablet,quan tablet,del Practic yed release yed release ayed e Take 1 Take 1 release tablet tablet Take 1 every day every day tablet by oral by oral every day route. route. by oral route. atenolol 25 atenolol 25 No 1 Q1D atenolol [place] mg tablet mg tablet 25 mg Fami ly Take 1 Take 1 tablet Practic tablet tablet Take 1 e every day every day tablet by oral by oral every day route. route. by oral route. ezetimibe ezetimibe No 1 Q1D ezetimibe [facility] 10 mg 10 mg 10 mg Family tablet Take tablet Take tablet Practic 1 tablet 1 tablet Take 1 e every day every day tablet by oral by oral every day route. route. by oral route. folic acid folic acid No 1 Q1D folic acid [facility] 1 mg tablet 1 mg tablet 1 mg F amily Take 1 Take 1 tablet Practic tablet tablet Take 1 e every day every day tablet by oral by oral every day route. route. by oral route. multivitami multivitami No multivitam [place] n 1 tab a n 1 tab a in 1 tab a Family day day day Practic e tamsulosin tamsulosin No 1capsul Q1D tamsulosin [facility] 0.4 mg 0.4 mg e(s) 0.4 mg Family capsule capsule capsule Practi c Take 1 Take 1 Take 1 e capsule capsule capsule every day every day every day by oral by oral by oral route. route. route. tramadol 50 tramadol 50 No 1 Q6H tramadol [place] mg tablet mg tablet 50 mg Fami ly Take 1 Take 1 tablet Practic tablet tablet Take 1 e every 6 every 6 tablet hours by hours by every 6 oral route. oral route. hours by oral route. Zoloft 100 Zoloft 100 No 1 BID Zoloft 100 [place] mg tablet mg tablet mg tablet Family Take 1 Take 1 Take 1 Practic tablet tablet tablet e twice a day twice a day twice a by oral by oral day by route. route. oral route. Immunizations Ordered Filled Immunization Date Status Comments [facility] e Immunization Name Name influenza, influenza, 2020-08-02 Completed [facility] injectable, injectable, 00:00:00 Practice quadrivalent quadrivalent Pneumococcal 2017-07-13 Completed University o f Polysaccharide, 00:00:00 [place] Med ical PPSV23 (PNEUMOVAX) Branch Pneumococcal 2017-07-13 Completed University o f Polysaccharide, 00:00:00 [place] Med ical PPSV23 (PNEUMOVAX) Branch Pneumococcal 2017-07-13 Completed University o f Polysaccharide, 00:00:00 [place] Med ical PPSV23 (PNEUMOVAX) Branch Pneumococcal 2017-07-13 Completed University o f Polysaccharide, 00:00:00 [place] Med ical PPSV23 (PNEUMOVAX) Branch Pneumococcal 2017-07-13 Completed University o f Polysaccharide, 00:00:00 [place] Med ical PPSV23 (PNEUMOVAX) Branch Pneumococcal 2017-07-13 Completed University o f Polysaccharide, 00:00:00 [place] Med ical PPSV23 (PNEUMOVAX) Branch Pneumococcal 2017-07-13 Completed University o f Polysaccharide, 00:00:00 [place] Med ical PPSV23 (PNEUMOVAX) Branch Pneumococcal 2017-07-13 Completed University o f Polysaccharide, 00:00:00 [place] Med ical PPSV23 (PNEUMOVAX) Branch Pneumococcal 2017-07-13 Completed University o f Polysaccharide, 00:00:00 [place] Med ical PPSV23 (PNEUMOVAX) Branch Pneumococcal 2017-07-13 Completed University o f Polysaccharide, 00:00:00 [place] Med ical PPSV23 (PNEUMOVAX) Branch Pneumococcal 2017-07-13 Completed University o f Polysaccharide, 00:00:00 [place] Med ical PPSV23 (PNEUMOVAX) Branch Pneumococcal 2017-07-13 Completed University o f Polysaccharide, 00:00:00 [place] Med ical PPSV23 (PNEUMOVAX) Branch Pneumococcal 2017-07-13 Completed University o f Polysaccharide, 00:00:00 [place] Med ical PPSV23 (PNEUMOVAX) Branch Pneumococcal 2017-07-13 Completed University o f Polysaccharide, 00:00:00 [place] Med ical PPSV23 (PNEUMOVAX) Branch Pneumococcal 2017-07-13 Completed University o f Polysaccharide, 00:00:00 [place] Med ical PPSV23 (PNEUMOVAX) Branch Pneumococcal 2017-07-13 Completed University o f Polysaccharide, 00:00:00 [place] Med ical PPSV23 (PNEUMOVAX) Branch Pneumococcal 2017-07-13 Completed University o f Polysaccharide, 00:00:00 [place] Med ical PPSV23 (PNEUMOVAX) Branch Pneumococcal 2017-07-13 Completed University o f Polysaccharide, 00:00:00 [place] Med ical PPSV23 (PNEUMOVAX) Branch Pneumococcal 2017-07-13 Completed University o f Polysaccharide, 00:00:00 [place] Med ical PPSV23 (PNEUMOVAX) Branch Vital Signs Vital Name Observation Time Observation Value Comments Source Height/Length 2021-09-19 08:25:37 172 cm Measured Weight Dosing 2021-09-19 08:25:37 83 kg Height/Length 2021-09-19 08:23:58 172 cm Measured Weight Dosing 2021-09-19 08:23:58 83 kg Height/Length 2021-09-19 08:23:35 172 cm Measured Weight Dosing 2021-09-19 08:23:35 83 kg Height/Length 2021-09-19 08:23:13 172 cm Measured Weight Dosing 2021-09-19 08:23:13 83 kg Height/Length 2021-09-19 08:21:06 172 cm Measured Weight Dosing 2021-09-19 08:21:06 83 kg Height 2020-12-06 00:00:00 68 [in_i] [facility] Practice BMI (Body Mass 2020-12-06 00:00:00 28.1 kg/m2 [facility] Family Index) Practice Body Weight 2020-12-06 00:00:00 185 [lb_av] [facility] Family Practice Systolic blood 2020-08-01 21:36:00 132 mm[Hg] [facility] [place] pressure Medical Branch Diastolic blood 2020-08-01 21:36:00 77 mm[Hg] [facility] [place] pressure Medical Branch Heart rate 2020-08-01 21:36:00 71 /min [facility] [place] [facility] Body weight 2020-08-01 21:36:00 85.458 kg [facility] [place] [facility] BMI 2020-08-01 21:36:00 28.65 kg/m2 [facility] [place] [facility] Oxygen saturation 2020-08-01 21:36:00 98 /min Uni [facility] [place] in Arterial blood Medical Br anch by Pulse oximetry Systolic blood 2020-08-01 21:36:00 132 mm[Hg] [facility] [place] pressure Medical Branch Diastolic blood 2020-08-01 21:36:00 77 mm[Hg] [facility] [place] pressure Medical Branch Heart rate 2020-08-01 21:36:00 71 /min [facility] [place] [facility] Body weight 2020-08-01 21:36:00 85.458 kg [facility] [place] [facility] BMI 2020-08-01 21:36:00 28.65 kg/m2 [facility] [place] [facility] Oxygen saturation 2020-08-01 21:36:00 98 /min Uni vers[facility] [place] in Arterial blood Medical Br anch by Pulse oximetry Systolic blood 2020-07-04 14:54:00 120 mm[Hg] [facility] [place] pressure Medical Branch Diastolic blood 2020-07-04 14:54:00 80 mm[Hg] [facility] [place] pressure Medical Branch Heart rate 2020-07-04 14:54:00 66 /min [facility] [place] [facility] Body height 2020-07-04 14:54:00 172.7 cm [facility] [place] [facility] Body weight 2020-07-04 14:54:00 83.915 kg [facility] [place] [facility] BMI 2020-07-04 14:54:00 28.13 kg/m2 [facility] [place] [facility] Oxygen saturation 2020-07-04 14:54:00 97 /min [facility] [place] in Arterial blood Medical Br anch by Pulse oximetry Procedures Procedure Date / Time Performing Clinician Source Performed AUTHORIZATION FOR 2020-08-10 06:01:00 Doctor Unassigned, No [facility] RELEASE OF PHI Name Medical Branch EXTERNAL PROVIDER 2020-08-02 06:01:00 Doctor Unassigned, No [facility] RECORDS Name Medical Branch MR CERVICAL SPINE WO 2020-07-13 16:46:11 [facility] ASSIGNMENT OF BENEFITS 2020-07-04 14:42:37 Doctor Unassigned, No [facility] Name Medical Branch REFERRAL- 2020-06-14 05:01:00 Doctor Unassigned, No [facility] REQUEST/RESPONSE Name Medical Branch Plan of Care Planned Activity Planned Date Details Comments Source Instructions [facility] Encounters Start End Encounter Admission Attending Care Care Encounter Source Date/Time Date/Time Type Type Clinicians Facility Department ID 2019-08-21 Inpatient 3 Lissa Guillen [facility] [place] [id number] 06:33:00 Lissa Guillen [facility] 2021-03-22 2021-03-23 Outpatient [facility] [id number] [place] 00:00:00 00:00:00 CHENG [id number] Method i 2021-03-17 2021-03-17 Outpatient [facility] [id number] [place] 00:00:00 00:00:00 CHENG [id number] Method i 2021-03-17 2021-03-17 Outpatient [facility] [id number] [place] 00:00:00 00:00:00 CHENG [id number] Method i 2020-12-13 2020-12-13 Outpatient Thiago-Mbayo VFP VFP [id number] [facility] 03:57:00 03:57:00 _A_AH [id number] Family Practic e 2020-12-07 2020-12-07 Outpatient Thiago-Mbayo VFP VFP [id number] [facility] 10:11:00 10:11:00 _A_AH [id number] Family Practic e 2020-12-06 2020-12-06 Outpatient Thiago-Mbayo VFP VFP [id number] [facility] 12:17:00 12:17:00 _A_AH [id number] Family Practic e 2020-12-06 2020-12-06 Radha VFP [place] - [id number] V illage 00:00:00 00:00:00 [place] Fam mariposa bender, AIRCRAFT FUELER: Medical - Practi javier [address] [email or web address] [facility], [address], [place] [address] , Ph. 2020-12-02 2020-12-02 Outpatient SATURDAY, [facility] [facility] 09:49:00 23:59:00 PINKY 2020-11-27 2020-11-27 Outpatient [facility] [id number] Univers 14:15:00 14:15:00 [facility] 2020-10-30 2020-10-30 [facility] [id number] Univers 14:10:00 14:10:00 MAURICIO [facility] 2020-09-25 2020-09-25 [facility] 1.2.840.114 [id number] Univers 00:00:00 00:00:00 Outreach Benny PRIMARY 350.1.13.10 i [facility] 4.2.7.2.686 Verónica GALLARDO [phone] De dic[address] 2020-09-16 2020-09-16 Laboratory Lab, Adc Fam Pob I [facility] 1.2. 840.114 [id number] Univers 18:50:23 19:10:23 Only Pinky Perez [facility] 350.1.13.10 [facility] 4.2.7.2.686 Varun as Professio [phone] De dic[address] Office Building One 2020-09-16 2020-09-16 Outpatient R [facility] [id number] -[id number] Univers 19:00:00 19:00:00 [id number] [facility] 2020-09-16 2020-09-16 Outpatient R NATALIE [facility] [id number] Univers 19:00:00 19:00:00 PINKY garcia [facility] 2020-09-01 2020-09-01 Outpatient CHER Jim RI [id number] [facility] 12:00:00 12:00:00 Cheng [id number] [facility] 2020-08-10 2020-08-10 Orders Doctor SCAR 1.2.840.114 [id number] Univers 00:00:00 00:00:00 Only Unassigned, ADRIA 350.1.13.10 [facility] 4.2.7.2.686 Varun as [phone] [address] 2020-08-10 2020-08-10 Orders Doctor SCAR 1.2.840.114 [id number] 00:00:00 00:00:00 Only Unassigned, ADRIA 350.1.13.10 [facility] 4.2.7.2.686 [phone] [facility] 2020-08-08 2020-08-[address] [facility] 1.2.840.114 [id number] Univers 00:00:00 00:00:00 Jones Terrell 350.1.13.10 [place].2.[place] [phone] De dical nal 092 [facility] 2020-08-03 2020-08-03 Canteen Attendant 2, Adc Lab [facility] 1.2.840.114 [id number] Univers 14:37:20 14:52:20 Visit Jones Montero 350.1.13 .10 [facility] [place]2.7.2.[place] [phone] De dical nal 353 [facility] 2020-08-03 2020-08-03 Outpatient R [facility] [id number] Univers 14:45:00 14:45:00 [facility] 2020-08-03 2020-08-03 Outpatient R JONES MONTERO [facility] [id number] Univers 14:45:00 14:45:00 JONES MONTERO [facility] 2020-08-02 2020-08-02 Orders Doctor ABBOTT 1.2.840.114 [id number] Univers 00:00:00 00:00:00 Only Unassigned, ADRIA 350.1.13.10 [facility] 4.2.7.2.686 Varun as [phone] [facility] 00[address] [place] 2020-08-01 2020-08-[address] [facility] 1.2.840.114 [id number] Univers 15:31:57 15:51:57 Visit Jones Terrell 350.1.13.10 [place]2.7.2.[place] [phone] De dicpa nal [address] [place] [address] 2020-08-01 2020-08-[address] [facility] 1.2.840.114 [id number] 15:31:57 15:51:57 Visit Jones Terrell 350.1.13.10 [place] 4.2.7.2.686 Professio [phone] [address] 2020-08-01 2020-08-01 Outpatient JONES MONTERO [facility] [id number] Univers 15:40:00 15:40:00 TASHIAJONES ity [facility] 2020-08-01 2020-08-01 Outpatient R JONES MONTERO [facility] [id number] Univers 15:40:00 15:40:00 TASHIAJONES [facility] 2020-07-27 2020-07-27 Outpatient R JONES MONTERO [facility] [id number] Univers 00:00:00 00:00:00 TASHIAJONES [id number] [facility] 2020-07-26 2020-07-[address] [facility] 1.2.840.114 [id number] Univers 00:00:00 00:00:00 Jones Terrell 350.1.13.10 [place].2.[place] [phone] De dic[address] 2020-07-13 2020-07-13 [facility] Tashia [facility] 1.2.202.176 [id number] Univers 09:41:08 23:59:00 Encounter Jones Terrell 350.1.13.10 [facility].2.7.2.686 [place] [phone] [facility] 804 [place] 2020-07-13 2020-07-13 Outpatient JONES TORRES [facility] [id number] Univers 10:00:00 10:00:00 JONES MONTERO [id number] [facility] 2020-07-13 2020-07-13 Outpatient JONES TORRES [facility] [id number] Univers 00:00:00 00:00:00 JONES MONTERO [facility] 2020-07-04 2020-07-[address] [facility] 1.2.840.114 [id number] Univers 08:44:37 09:40:52 Visit Jones Terrell 350.1.13.10 [place]2.7.2.[place] [phone] De dical nal [address] [place] [address] 2020-07-04 2020-07-04 Outpatient JONES TORRES [facility] [id number] Univers 08:40:00 08:40:00 [facility] 2020-07-04 2020-07-04 Outpatient JONES TORRES [facility] [id number] Univers 08:40:00 08:40:00 JONES MONTERO [facility] 2020-07-04 2020-07-04 Orders Doctor SCAR 1.2.840.114 [id number] Univers 00:00:00 00:00:00 Only Unassigned, ADRIA 350.1.13.10 [facility] 4.2.7.2.686 Varun as [phone] [address] 2020-06-15 2020-06-[address] [facility] 1.2.069.126 [id number] Univers 00:00:00 00:00:00 (Out) Nidhi 350.1.13.10 i [place]2.7.2.[place] [phone] De dical nal 092 [facility] 2020-06-14 2020-06-14 Orders Doctor SCAR 1.2.840.114 [id number] Univers 00:00:00 00:00:00 Only Unassigned, ADRIA 350.1.13.10 [facility] 4.2.7.2.686 Varun as [phone] [facility] kimo [address] 2019-10-21 2019-10-21 Outpatient [place] VFP VFP [id number] [facility] 07:22:00 07:22:00 _A_ [id number] Family Practic e 2019-10-21 2019-10-21 Outpatient [place]iago[place] VFP VFP [id number] [facility] 07:22:00 07:22:00 _A_ [id number] Family Practic e Results Test Description Test Time Test Comments Results Result Sour e Comments - MRA NECK W/O 2020-08-04 CONT 1 13:42:00 [facility] 1945 Sex: M FAX: Cheng Jaimes [phone] Dayhoit: St: REG Name: DUSTY,GRETEL [facility] : 1945 Age/S: 75/M [address] [place] [address] Unit #: [id number] Loc: [place] [address] Phys: Cheng Jim MD Acct: [id number] Dis Date: Status: REG CLI PHONE #: [phone] Exam Date: 09/01/2020 1255 FAX #: [phone] Reason: DIZZY,VASHTI,SPINAL CORD COMPRESSION EXAMS: CPT CODE: [id number] MRA NECK W/O CONT 27566 EXAM: MRI BRAIN WITHOUT CONTRAST EXAM: MRA BRAIN WITHOUT CONTRAST EXAM: MRA NECK WITHOUT CONTRAST DATE: 09/01/2020 11:42 AM INDICATION: Dizziness. Suspected stroke. COMPARISON: None TECHNIQUE: - Multiplanar noncontrast MRI images of the brain. - Three-dimensional time of flight brain MR angiography of intracranial vessels is performed, and maximum intensity projection reformatted images are presented in multiple three-dimensional rotational projections. - Two-dimensional time of flight neck MR angiography of extracranial arterial system was performed and reformatted images are presented in three-dimensional maximum intensity rotational projections. Three-dimensional hjee-mf-uiafor MR angiography centered at the carotid bifurcations was included. FINDINGS: BRAIN MRI: No abnormality is present on the diffusion weighted images. No edema, hemorrhage, or extra axial collection is identified. There is no mass or mass-effect. Mild generalized volume loss is noted. Scattered FLAIR hyperintensities in the supratentorial white matter likely represent chronic small vessel ischemic changes. The ventricles and sulci are normal in size and shape. The basal cisterns are patent. The skull base, paranasal sinuses, and orbits have normal appearance. BRAIN MRA: There is no aneurysm, stenosis, vascular malformation or branch occlusion. NECK MRA: PAGE 1 Signed Report (CONTINUED) FAX: Cheng Jaimes [phone] Dayhoit: St: REG Name: GRETEL SULTANA [facility] : 1945 Age/S: 75/M [address] [place] [address] Unit #: [id number] Loc: [place] [address] Phys: Cheng Jim MD Acct: [id number] Dis Date: Status: REG CLI PHONE #: [phone] Exam Date: 09/01/2020 1252 FAX #: [phone] Reason: DIZZY,VASHTI,SPINAL CORD COMPRESSION EXAMS: CPT CODE: [id number] MRA NECK W/O CONT 88463 <Continued> Carotid circulation: The cervical common and internal carotid arteries have a normal caliber and contour. Tortuosity of the bilateral cervical internal carotid arteries is noted. No hemodynamically significant stenosis is identified at the carotid bifurcations. Vertebrobasilar circulation: The vertebral arteries have a normal course caliber and contour in the neck. IMPRESSION: 1. Negative MRI of the brain without contrast. Mild generalized volume loss and chronic small vessel ischemic changes in the supratentorial white matter. 2. Normal MRA of the brain without contrast 3. Normal MRA of the neck without contrast. All qualitative and quantitative assessments of carotid bifurcation and proximal internal carotid artery stenosis are made referencing the distal internal carotid artery (NASCET criteria). SL: [id number] at 1342 Reported and signed by: Filiberto Romero M.D. CC: Cheng Jim MD Technologist: RT Blanquita(R)(MR) Trnscrd Date/Time/By: 09/01/2020 (5966) : By: [email or web address] Orig Print D/T: S: 09/01/2020 (7804) PAGE 2 Signed Report - MRI BRAIN W/O 2020-08-04 CONT 1 13:42:00 [facility] 1945 Sex: M FAX: Cheng Jaimes [phone] Dayhoit: St: REG [facility] 1945 Age/S: 75/M [address] [place] [address] Unit #: [id number] Loc: [place] [address] Phys: Cheng Jim MD Acct: [id number] Dis Date: Status: REG CLI PHONE #: [phone] Exam Date: 09/01/2020 1256 FAX #: [phone] Reason: DIZZY,MONTEJO, SPINAL CORD COMPRESSION EXAMS: CPT CODE: [id number] MRI BRAIN W/O CONT 16394 EXAM: MRI BRAIN WITHOUT CONTRAST EXAM: MRA BRAIN WITHOUT CONTRAST EXAM: MRA NECK WITHOUT CONTRAST DATE: 09/01/2020 11:42 AM INDICATION: Dizziness. Suspected stroke. COMPARISON: None TECHNIQUE: - Multiplanar noncontrast MRI images of the brain. - Three-dimensional time of flight brain MR angiography of intracranial vessels is performed, and maximum intensity projection reformatted images are presented in multiple three-dimensional rotational projections. - Two-dimensional time of flight neck MR angiography of extracranial arterial system was performed and reformatted images are presented in three-dimensional maximum intensity rotational projections. Three-dimensional novt-ol-iqpdxz MR angiography centered at the carotid bifurcations was included. FINDINGS: BRAIN MRI: No abnormality is present on the diffusion weighted images. No edema, hemorrhage, or extra axial collection is identified. There is no mass or mass-effect. Mild generalized volume loss is noted. Scattered FLAIR hyperintensities in the supratentorial white matter likely represent chronic small vessel ischemic changes. The ventricles and sulci are normal in size and shape. The basal cisterns are patent. The skull base, paranasal sinuses, and orbits have normal appearance. BRAIN MRA: There is no aneurysm, stenosis, vascular malformation or branch occlusion. NECK MRA: PAGE 1 Signed Report (CONTINUED) FAX: Cheng Jaimes [phone] Dayhoit: St: REG [facility] 1945 Age/S: 75/M [address] [place] [address] Blvd Unit #: [id number] Loc: [place] [address] Phys: Cheng Jim MD Acct: [id number] Dis Date: Status: REG CLI PHONE #: [phone] Exam Date: 09/01/2020 1255 FAX #: [phone] Reason: DIZZY,MONTEJO, SPINAL CORD COMPRESSION EXAMS: CPT CODE: [id number] MRI BRAIN W/O CONT 06612 <Continued> Carotid circulation: The cervical common and internal carotid arteries have a normal caliber and contour. Tortuosity of the bilateral cervical internal carotid arteries is noted. No hemodynamically significant stenosis is identified at the carotid bifurcations. Vertebrobasilar circulation: The vertebral arteries have a normal course caliber and contour in the neck. IMPRESSION: 1. Negative MRI of the brain without contrast. Mild generalized volume loss and chronic small vessel ischemic changes in the supratentorial white matter. 2. Normal MRA of the brain without contrast 3. Normal MRA of the neck without contrast. All qualitative and quantitative assessments of carotid bifurcation and proximal internal carotid artery stenosis are made referencing the distal internal carotid artery (NASCET criteria). SL: [id number] at 1342 Reported and signed by: Filiberto Romero M.D. CC: Cheng Jim MD Technologist: RT Blanquita(R)(MR) Trnscrd Date/Time/By: 09/01/2020 (648) : By: Maria [email or web address] Orig Print D/T: S: 09/01/2020 (6541) PAGE 2 Signed Report - MRA HEAD W/O 2020-08-04 CONTRAST 1 13:42:00 [facility] 1945 Sex: M FAX: Cheng Jaimes [phone] Dayhoit: St: REG Name: GRETEL SULTANA [facility] [place] : 1945 Age/S: 75/M [address] [place] [address] Blvd Unit #: [id number] Loc: [place] [address] Phys: Cheng Jim MD Acct: [id number] Dis Date: Status: REG CLI PHONE #: [phone] Exam Date: 09/01/2020 1255 FAX #: [phone] Reason: DIZZY,MONTEJO,SPINAL CORD COMPRESSION EXAMS: CPT CODE: [id number] MRA HEAD W/O CONTRAST 40739 EXAM: MRI BRAIN WITHOUT CONTRAST EXAM: MRA BRAIN WITHOUT CONTRAST EXAM: MRA NECK WITHOUT CONTRAST DATE: 09/01/2020 11:42 AM INDICATION: Dizziness. Suspected stroke. COMPARISON: None TECHNIQUE: - Multiplanar noncontrast MRI images of the brain. - Three-dimensional time of flight brain MR angiography of intracranial vessels is performed, and maximum intensity projection reformatted images are presented in multiple three-dimensional rotational projections. - Two-dimensional time of flight neck MR angiography of extracranial arterial system was performed and reformatted images are presented in three-dimensional maximum intensity rotational projections. Three-dimensional hhxv-os-wgmmia MR angiography centered at the carotid bifurcations was included. FINDINGS: BRAIN MRI: No abnormality is present on the diffusion weighted images. No edema, hemorrhage, or extra axial collection is identified. There is no mass or mass-effect. Mild generalized volume loss is noted. Scattered FLAIR hyperintensities in the supratentorial white matter likely represent chronic small vessel ischemic changes. The ventricles and sulci are normal in size and shape. The basal cisterns are patent. The skull base, paranasal sinuses, and orbits have normal appearance. BRAIN MRA: There is no aneurysm, stenosis, vascular malformation or branch occlusion. NECK MRA: PAGE 1 Signed Report (CONTINUED) FAX: Cheng Jaimes [phone] Dayhoit: St: REG Name: GRETEL SULTANA [facility] : 1945 Age/S: 75/M [address] [place] [address] Blvd Unit #: [id number] Loc: [place] [address] Phys: Cheng Jim MD Acct: [id number] Dis Date: Status: REG CLI PHONE #: [phone] Exam Date: 09/01/2020 1255 FAX #: [phone] Reason: DIZZY,MONTEJO,SPINAL CORD COMPRESSION EXAMS: CPT CODE: [id number] MRA HEAD W/O CONTRAST 98709 <Continued> Carotid circulation: The cervical common and internal carotid arteries have a normal caliber and contour. Tortuosity of the bilateral cervical internal carotid arteries is noted. No hemodynamically significant stenosis is identified at the carotid bifurcations. Vertebrobasilar circulation: The vertebral arteries have a normal course caliber and contour in the neck. IMPRESSION: 1. Negative MRI of the brain without contrast. Mild generalized volume loss and chronic small vessel ischemic changes in the supratentorial white matter. 2. Normal MRA of the brain without contrast 3. Normal MRA of the neck without contrast. All qualitative and quantitative assessments of carotid bifurcation and proximal internal carotid artery stenosis are made referencing the distal internal carotid artery (NASCET criteria). SL: [id number] at 1342 Reported and signed by: Filiberto Romero M.D. CC: Cheng Jim MD Technologist: RT Blanquita(R)(MR) Trnscrd Date/Time/By: 09/01/2020 (6331) : By: Maria [email or web address] Orig Print D/T: S: 09/01/2020 (9041) PAGE 2 Signed Report - XR C-SPINE 6+V 2020-08-04 1 13:17:00 [facility] 1945 Sex: M FAX: Cheng Jaimes [phone] Dayhoit: St: REG Name: GRETEL SULTANA [facility] : 1945 Age/S: 75/M [address] [place] [address] Unit #: [id number] Loc: [place] [address] Phys: Cheng Jim MD Acct: [id number] Dis Date: Status: REG CLI PHONE #: [phone] Exam Date: 09/01/2020 1314 FAX #: [phone] Reason: DIZZY , HEADACHE, SPINAL CORD COMPRESSION EXAMS: CPT CODE: [id number] XR C-SPINE 6+V 43766 Procedure. Cervical Spine Radiographs. Clinical Indication: Dizziness, headache, spinal cord compression. Comparison: None. FINDINGS: The 7 views of the cervical spine including flexion and extension images show minimal approximately 2 mm anterior subluxation of C5 on C6, unchanged on the flexion and extension images. There is degenerative change at all levels including narrowing of the intervertebral disc spaces, marginal osteophyte formation and facet joint hypertrophy, most pronounced from C5 through T1. No acute displaced fracture. IMPRESSION: 1. Degenerative change as described with minimal subluxation of C5 on C6, likely degenerative and secondary to ligamentous laxity. Further assessment with MR imaging may be helpful if indicated clinically. SL: OCO-H at 1317 Reported and signed by: Rafael Harding M.D. CC: Cheng Jim MD Technologist: RT Darrius(R)(M) Trnscrd Date/Time/By: 09/01/2020 (9667) : By: Maria EstherTDO Orig Print D/T: S: 09/01/2020 (8220) PAGE 1 Signed Report MR CERVICAL 2020-07-03 HISTORY: Chronic neck Un iversity of SPINE WO 1 pain, headaches and [facility] CONTRAST 17:03:00 dizziness. TECHNIQUE: [facility] T1/T2/STIR sagittal and T1/T2 FRFSE/2D MERGE axial studies ofcervical spines were obtained. FINDINGS: No compression fracture or abnormal marrow changes of the bonesdetected. Spinal canal is of adequate size and no intrinsic cervical cordpathology detected. The anatomy of the craniocervical junction appearsnormal. C2-C3: Moderate hypertrophic right facet arthritis. C3-C4: Degenerative disc disease with narrowing of the peripheral portionsof the disc by more than 60%, disc osteophyte complex encroaching towardthe spinal canal with additional encroachment into the neural foramina byuncovertebral osteophytes and facet arthritis. Mild spinal and foraminalstenosis is noted without cord compression. Minimal bilateral nerve rootcompression noted. C4-C5: Mild degenerative changes of vertebral margins, disc osteophytecomplex encroaching into the spinal canal with encroachment also noted intothe neural foramina by uncovertebral osteophytes on both sides and by facetarthritis on the left side. Spinal stenosis noted causing mild flatteningof the left side of the spinal cord in AP dimension and the left nerve rootcompression. C5-C6: Deformity of 6 vertebral body noted, likely due to remote trauma.Minimal anterior listhesis of C5 over C6, osteophytes along the ventralvertebral margins, diffuse bulging of the disc encroaching into the spinalcanal without causing cord compression. Small uncovertebral osteophytesnoted encroaching into the neural foramina with additional encroachmentinto the right neural foramen by facet arthritis noted without cordcompression. Minimal bilateral nerve root compression suspected. C6-C7: Moderate degenerative disc disease with narrowing of the disc spaceby more than 50%, prominent osteophytes along the ventral vertebralmargins, slightly smaller disc osteophyte complex encroaching into thespinal canal causing mild diffuse flattening of the spinal cord in APdimension. Foraminal encroachment by uncovertebral osteophytes noted onboth sides causing bilateral nerve root compression. C7-T1: Minimal anterior listhesis of C7 over T1, minimal disc bulge,bilateral hypertrophic facet arthritis. Mild spinal and bilateral foraminalstenosis noted causing mild bilateral nerve root compression, slightly moreon the left side. CONCLUSIONS:1. Degenerative disc disease and facet arthritis at multiple levels withspinal stenosis causing flattening of the spinal cord in AP dimension atC6-C7, less at C4-C5 and C3-C4 levels.2. Foraminal encroachment by uncovertebral osteophytes and/or hypertrophicfacet arthritis causing mild bilateral nerve root compression at C6-C7,C7-T1, minimal bilateral nerve root compression at C5-C6, C3-C4 and leftnode compression at C4-C5.3. Old trauma suspected to C6 vertebral body and less to C7,T1 vertebralbodies. [facility], Radiant Results Inft User - 07/13/2020 11:04 AM CSTHISTORY: Chronic neck pain, headaches and dizziness.TECHNIQUE: T1/T2/STIR sagittal and T1/T2 FRFSE/2D MERGE axial studies ofcervical spines were obtained.FINDINGS: No compression fracture or abnormal marrow changes of the bonesdetected. Spinal canal is of adequate size and no intrinsic cervical cordpathology detected. The anatomy of the craniocervical junction appearsnormal.C2-C3: Moderate hypertrophic right facet arthritis.C3-C4: Degenerative disc disease with narrowing of the peripheral portionsof the disc by more than 60%, disc osteophyte complex encroaching towardthe spinal canal with additional encroachment into the neural foramina byuncovertebral osteophytes and facet arthritis. Mild spinal and foraminalstenosis is noted without cord compression. Minimal bilateral nerve rootcompression noted.C4-C5: Mild degenerative changes of vertebral margins, disc osteophytecomplex encroaching into the spinal canal with encroachment also noted intothe neural foramina by uncovertebral osteophytes on both sides and by facetarthritis on the left side. Spinal stenosis noted causing mild flatteningof the left side of the spinal cord in AP dimension and the left nerve rootcompression.C5-C6 : Deformity of 6 vertebral body noted, likely due to remote trauma.Minimal anterior listhesis of C5 over C6, osteophytes along the ventralvertebral margins, diffuse bulging of the disc encroaching into the spinalcanal without causing cord compression. Small uncovertebral osteophytesnoted encroaching into the neural foramina with additional encroachmentinto the right neural foramen by facet arthritis noted without cordcompression. Minimal bilateral nerve root compression suspected.C6-C7: Moderate degenerative disc disease with narrowing of the disc spaceby more than 50%, prominent osteophytes along the ventral vertebralmargins, slightly smaller disc osteophyte complex encroaching into thespinal canal causing mild diffuse flattening of the spinal cord in APdimension. Foraminal encroachment by uncovertebral osteophytes noted onboth sides causing bilateral nerve root compression.C7-T1: Minimal anterior listhesis of C7 over T1, minimal disc bulge,bilateral hypertrophic facet arthritis. Mild spinal and bilateral foraminalstenosis noted causing mild bilateral nerve root compression, slightly moreon the left side.CONCLUSIONS:1. Degenerative disc disease and facet arthritis at multiple levels withspinal stenosis causing flattening of the spinal cord in AP dimension atC6-C7, less at C4-C5 and C3-C4 levels.2. Foraminal encroachment by uncovertebral osteophytes and/or hypertrophicfacet arthritis causing mild bilateral nerve root compression at C6-C7,C7-T1, minimal bilateral nerve root compression at C5-C6, C3-C4 and leftnode compression at C4-C5.3. Old trauma suspected to C6 vertebral body and less to C7,T1 vertebralbodies. Magnesium Level 2019-09-02 05:23:01 Test Item Value Reference Range Interpretation Comme nts Magnesium Level (test code = Magnesium Level) 2.2 mg/dL 1.7-2.5 Phosphorus [id number] 05:23:01 Test Item Value Reference Range Interpretation Comments Phosphorus Level (test code = 4.40 mg/dL 2.70-4.50 Phosphorus Level) Basic Metabolic [id number] 05:23:00 Test Item Value Reference Range Interpretation Comments Sodium Level (test code = Sodium 132.0 mmol/L 135.0-145.0 L Level) Potassium Level (test code = 4.7 mmol/L 3.5-5.1 Potassium Level) Chloride Level (test code = 91 mmol/L 98-105 L Chloride Level) CO2 (test code = CO2) 28 mmol/L 22-29 Anion Gap (test code = Anion 13 mmol/L 7-16 Gap) BUN (test code = BUN) 27.10 mg/dL 8.00-23.00 H Creatinine Level (test code = 1.30 mg/dL 0.70-1.20 H Creatinine Level) BUN/Creat Ratio (test code = 21 N BUN/Creat Ratio) Glucose Level (test code = 125 mg/dL 70-115 H Glucose Level) Calcium Level (test code = 8.7 mg/dL 8.3-10.5 Calcium Level) Basic Metabolic [id number] 05:23:00 Test Item Value Reference Range Interpretation Comments Sodium Level (test 132.0 mmol/L 135.0-145.0 L code = Sodium Level) Potassium Level 4.7 mmol/L 3.5-5.1 (test code = Potassium Level) Chloride Level (test 91 mmol/L 98-105 L code = Chloride Level) CO2 (test code = 28 mmol/L 22-29 CO2) Anion Gap (test code 13 mmol/L 7-16 = Anion Gap) BUN (test code = 27.10 mg/dL 8.00-23.00 H BUN) Creatinine Level 1.30 mg/dL 0.70-1.20 H (test code = Creatinine Level) BUN/Creat Ratio 21 N (test code = BUN/Creat Ratio) Glucose Level (test 125 mg/dL 70-115 H code = Glucose Level) Calcium Level (test 8.7 mg/dL 8.3-10.5 code = Calcium Level) eGFR AA (test code = >60 N eGFR (e stimated eGFR AA) mL/min/1.73 m2 Glomerular Filtration Rate ) is an estimated va lue, calculated from the patient's serum creatinine usin g the MDRD equation. It is NOT the patient 's actual GFR. The eGFR provides a more clinically usef ul measure of kidn ey disease than se rum creatinine alone.This calculation judith es sex and race in to account, if the information is provided. If th e race is not provided, and t he patient is -Precious n, multiply by 1.2 12. If sex is not provided, and t he patient is fema le, multiply by 0.7 42. Results for pat ients <18 years of ag e have not been validated by th e MDRD study and should be interpreted wit h caution. eGFR R esult Interpretation: eGFR > or = 60 is in the Normal RangeeGF R < 60 may mean kid galen diseaseeGFR < 1 5 may mean kidney failure Rang es recommended by the National Kidney Foundation, http://nkdep.ni h.gov Basic Metabolic [id number] 05:23:00 Test Item Value Reference Range Interpretation Comments Sodium Level (test 132.0 mmol/L 135.0-145.0 L code = Sodium Level) Potassium Level 4.7 mmol/L 3.5-5.1 (test code = Potassium Level) Chloride Level (test 91 mmol/L 98-105 L code = Chloride Level) CO2 (test code = 28 mmol/L 22-29 CO2) Anion Gap (test code 13 mmol/L 7-16 = Anion Gap) BUN (test code = 27.10 mg/dL 8.00-23.00 H BUN) Creatinine Level 1.30 mg/dL 0.70-1.20 H (test code = Creatinine Level) BUN/Creat Ratio 21 N (test code = BUN/Creat Ratio) Glucose Level (test 125 mg/dL 70-115 H code = Glucose Level) Calcium Level (test 8.7 mg/dL 8.3-10.5 code = Calcium Level) eGFR AA (test code = >60 N eGFR (e stimated eGFR AA) mL/min/1.73 m2 Glomerular Filtration Rate ) is an estimated va lue, calculated from the patient's serum creatinine usin g the MDRD equation. It is NOT the patient 's actual GFR. The eGFR provides a more clinically usef ul measure of kidn ey disease than se rum creatinine alone.This calculation judith es sex and race in to account, if the information is provided. If th e race is not provided, and t he patient is -Precious n, multiply by 1.2 12. If sex is not provided, and t he patient is fema le, multiply by 0.7 42. Results for pat ients <18 years of ag e have not been validated by [facility] and should be interpreted wit h caution. eGFR R esult Interpretation: eGFR > or = 60 is in the Normal RangeeGF R < 60 may mean kid galen diseaseeGFR < 1 5 may mean kidney failure Rang es recommended by the National Kidney Foundation, http://nkdep.ni h.gov eGFR Non-AA (test 53.96 N eGFR (amalia mated code = eGFR Non-AA) mL/min/1.73 m2 Glomer ular Filtration Rate ) is an estimated va lue, calculated from the patient's serum creatinine usin g the MDRD equation. It is NOT the patient 's actual GFR. The eGFR provides a more clinically usef ul measure of kidn ey disease than se rum creatinine alone.This calculation judith es sex and race in to account, if the information is provided. If th e race is not provided, and t he patient is -Precious n, multiply by 1.2 12. If sex is not provided, and t he patient is fema le, multiply by 0.7 42. Results for pat ients <18 years of ag e have not been validated by [facility] and should be interpreted wit h caution. eGFR R esult Interpretation: eGFR > or = 60 is in the Normal RangeeGF R < 60 may mean kid galen diseaseeGFR < 1 5 may mean kidney failure Rang es recommended by the National Kidney Foundation, http://nkdep.ni h.gov Complete Blood Count with [id number] 05:07:24 Test Item Value Reference Range Interpretation Comments WBC (test code = WBC) 12.2 x10 4.4-10.5 H RBC (test code = RBC) 3.66 x10 4.10-5.70 L Hgb (test code = Hgb) 12.4 g/dL 13.4-17.4 L Hct (test code = Hct) 37.0 % 38.7-52.0 L MCV (test code = MCV) 101.10 fL 80.00-100.00 H MCHC (test code = 33.50 g/dL 32.00-37.50 MCHC) MCH (test code = MCH) 33.9 pg 27.0-32.5 H RDW CV (test code = 13.7 % 11.5-14.5 RDW CV) Platelets (test code = 334.0 x10 140.0-440.0 Platelets) MPV (test code = MPV) 10.1 fL N Slide Review (test Auto Auto Result cr eated by code = Slide Review) GL_SJM_ SLIDE_REV_AUTO nRBC (test code = 0 N nRBC) NRBC Abs (test code = 0.00 x10 N NRBC Abs) IPF (test code = IPF) 0 % N Automated [id number] 05:07:24 Test Item Value Reference Range Interpretation Comments Neutro Auto (test code = Neutro 73.1 % 36.0-70.0 H Auto) Lymph Auto (test code = Lymph Auto) 13.7 % 12.0-44.0 Tyrrell Auto (test code = Tyrrell Auto) 7.5 % 0.0-11.0 Eos, Auto (test code = Eos, Auto) 4.1 % 0.0-7.0 Basophil Auto (test code = Basophil 0.4 % 0.0-2.0 Auto) Neutro Absolute (test code = Neutro 8.9 x10 1.6-7.4 H Absolute) Lymph Absolute (test code = Lymph 1.68 x10 .50-4.60 Absolute) Tyrrell Absolute (test code = Tyrrell .92 x10 .00-1.20 Absolute) Eos Absolute (test code = Eos 0.50 x10 0.00-0.74 Absolute) Baso Absolute (test code = Baso 0.05 x10 0.00-0.21 Absolute) IG [id number] 05:07:24 Test Item Value Reference Range Interpretation Comments IG (test code = IG) 1.2 % 0.0-5.0 IG Abs (test code = IG Abs) 0 x10 N POC [id number] 21:50:57 Test Item Value Reference Range Interpretation Comments Glucose POC (test 126 mg/dL 70-115 H If you con operator vacuum your code = Glucose POC) patient critically ill, the Sue-Accu Check Infrom II meter should not be used for Glucose determination. Draw a venous Glucose and send to the main Lab for analysis. Basic Metabolic [id number] 06:31:27 Test Item Value Reference Range Interpretation Comments Sodium Level (test code = Sodium 136.0 mmol/L 135.0-145.0 Level) Potassium Level (test code = 5.0 mmol/L 3.5-5.1 Potassium Level) Chloride Level (test code = 96 mmol/L 98-105 L Chloride Level) CO2 (test code = CO2) 29 mmol/L 22-29 Anion Gap (test code = Anion 11 mmol/L 7-16 Gap) BUN (test code = BUN) 26.80 mg/dL 8.00-23.00 H Creatinine Level (test code = 1.30 mg/dL 0.70-1.20 H Creatinine Level) BUN/Creat Ratio (test code = 21 N BUN/Creat Ratio) Glucose Level (test code = 112 mg/dL 70-115 Glucose Level) Calcium Level (test code = 8.9 mg/dL 8.3-10.5 Calcium Level) Magnesium [id number] 06:31:27 Test Item Value Reference Range Interpretation Comments Magnesium Level (test code = 1.9 mg/dL 1.7-2.5 Magnesium Level) Basic Metabolic [id number] 06:31:27 Test Item Value Reference Range Interpretation Comments Sodium Level (test 136.0 mmol/L 135.0-145.0 code = Sodium Level) Potassium Level 5.0 mmol/L 3.5-5.1 (test code = Potassium Level) Chloride Level (test 96 mmol/L 98-105 L code = Chloride Level) CO2 (test code = 29 mmol/L 22-29 CO2) Anion Gap (test code 11 mmol/L 7-16 = Anion Gap) BUN (test code = 26.80 mg/dL 8.00-23.00 H BUN) Creatinine Level 1.30 mg/dL 0.70-1.20 H (test code = Creatinine Level) BUN/Creat Ratio 21 N (test code = BUN/Creat Ratio) Glucose Level (test 112 mg/dL 70-115 code = Glucose Level) Calcium Level (test 8.9 mg/dL 8.3-10.5 code = Calcium Level) eGFR AA (test code = >60 N eGFR (e stimated eGFR AA) mL/min/1.73 m2 Glomerular Filtration Rate ) is an estimated va lue, calculated from the patient's serum creatinine usin g the MDRD equation. It is NOT the patient 's actual GFR. The eGFR provides a more clinically usef ul measure of kidn ey disease than se rum creatinine alone.This calculation judith es sex and race in to account, if the information is provided. If th e race is not provided, and t he patient is -Precious n, multiply by 1.2 12. If sex is not provided, and t he patient is fema le, multiply by 0.7 42. Results for pat ients <18 years of ag e have not been validated by th e MDRD study and should be interpreted wit h caution. eGFR R esult Interpretation: eGFR > or = 60 is in the Normal RangeeGF R < 60 may mean kid galen diseaseeGFR < 1 5 may mean kidney failure Rang es recommended by the National Kidney Foundation, http://nkdep.ni h.gov Basic Metabolic [id number] 06:31:27 Test Item Value Reference Range Interpretation Comments Sodium Level (test 136.0 mmol/L 135.0-145.0 code = Sodium Level) Potassium Level 5.0 mmol/L 3.5-5.1 (test code = Potassium Level) Chloride Level (test 96 mmol/L 98-105 L code = Chloride Level) CO2 (test code = 29 mmol/L 22-29 CO2) Anion Gap (test code 11 mmol/L 7-16 = Anion Gap) BUN (test code = 26.80 mg/dL 8.00-23.00 H BUN) Creatinine Level 1.30 mg/dL 0.70-1.20 H (test code = Creatinine Level) BUN/Creat Ratio 21 N (test code = BUN/Creat Ratio) Glucose Level (test 112 mg/dL 70-115 code = Glucose Level) Calcium Level (test 8.9 mg/dL 8.3-10.5 code = Calcium Level) eGFR AA (test code = >60 N eGFR (e stimated eGFR AA) mL/min/1.73 m2 Glomerular Filtration Rate ) is an estimated va lue, calculated from the patient's serum creatinine usin g the MDRD equation. It is NOT the patient 's actual GFR. The eGFR provides a more clinically usef ul measure of kidn ey disease than se rum creatinine alone.This calculation judith es sex and race in to account, if the information is provided. If th e race is not provided, and t he patient is -Precious n, multiply by 1.2 12. If sex is not provided, and t he patient is fema le, multiply by 0.7 42. Results for pat ients <18 years of ag e have not been validated by [facility] and should be interpreted wit h caution. eGFR R esult Interpretation: eGFR > or = 60 is in the Normal RangeeGF R < 60 may mean kid galen diseaseeGFR < 1 5 may mean kidney failure Rang es recommended by the National Kidney Foundation, http://nkdep.ni h.gov eGFR Non-AA (test 53.96 N eGFR (amalia mated code = eGFR Non-AA) mL/min/1.73 m2 Glomer ular Filtration Rate ) is an estimated va lue, calculated from the patient's serum creatinine usin g the MDRD equation. It is NOT the patient 's actual GFR. The eGFR provides a more clinically usef ul measure of kidn ey disease than se rum creatinine alone.This calculation judith es sex and race in to account, if the information is provided. If th e race is not provided, and t he patient is -Precious n, multiply by 1.2 12. If sex is not provided, and t he patient is fema le, multiply by 0.7 42. Results for pat ients <18 years of ag e have not been validated by [facility] and should be interpreted wit h caution. eGFR R esult Interpretation: eGFR > or = 60 is in the Normal RangeeGF R < 60 may mean kid galen diseaseeGFR < 1 5 may mean kidney failure Rang es recommended by the National Kidney Foundation, http://nkdep.ni h.gov Complete Blood Count with [id number] 05:55:08 Test Item Value Reference Range Interpretation Comments WBC (test code = WBC) 12.2 x10 4.4-10.5 H RBC (test code = RBC) 3.36 x10 4.10-5.70 L Hgb (test code = Hgb) 11.3 g/dL 13.4-17.4 L Hct (test code = Hct) 33.7 % 38.7-52.0 L MCV (test code = MCV) 100.30 fL 80.00-100.00 H MCHC (test code = 33.50 g/dL 32.00-37.50 MCHC) RDW CV (test code = 13.5 % 11.5-14.5 RDW CV) MCH (test code = MCH) 33.6 pg 27.0-32.5 H Platelets (test code = 247.0 x10 140.0-440.0 Platelets) MPV (test code = MPV) 10.4 fL N Slide Review (test Auto Auto Result cr eated by code = Slide Review) GL_SJM_ SLIDE_REV_AUTO nRBC (test code = 0 N nRBC) NRBC Abs (test code = 0.00 x10 N NRBC Abs) IPF (test code = IPF) 0 % N Automated [id number] 05:55:08 Test Item Value Reference Range Interpretation Comments Neutro Auto (test code = Neutro 73.7 % 36.0-70.0 H Auto) Lymph Auto (test code = Lymph Auto) 11.9 % 12.0-44.0 L Tyrrell Auto (test code = Tyrrell Auto) 9.3 % 0.0-11.0 Eos, Auto (test code = Eos, Auto) 3.3 % 0.0-7.0 Basophil Auto (test code = Basophil 0.5 % 0.0-2.0 Auto) Neutro Absolute (test code = Neutro 9.0 x10 1.6-7.4 H Absolute) Lymph Absolute (test code = Lymph 1.46 x10 .50-4.60 Absolute) Tyrrell Absolute (test code = Tyrrell 1.14 x10 .00-1.20 Absolute) Eos Absolute (test code = Eos 0.40 x10 0.00-0.74 Absolute) Baso Absolute (test code = Baso 0.06 x10 0.00-0.21 Absolute) IG [id number] 05:55:08 Test Item Value Reference Range Interpretation Comments IG (test code = IG) 1.3 % 0.0-5.0 IG Abs (test code = IG Abs) 0 x10 N POC [id number] 08:05:25 Test Item Value Reference Range Interpretation Comments Glucose POC (test 98 mg/dL 70-115 If you con operator vacuum your code = Glucose POC) patient critically ill, the Sue-Accu Check Infrom II meter should not be used for Glucose determination. Draw a venous Glucose and send to the main Lab for analysis. Comprehensive Metabolic [id number] 06:52:14 Test Item Value Reference Range Interpretation Comments Sodium Level (test code = Sodium 135.0 mmol/L 135.0-145.0 Level) Potassium Level (test code = 4.2 mmol/L 3.5-5.1 Potassium Level) Chloride Level (test code = 96 mmol/L 98-105 L Chloride Level) CO2 (test code = CO2) 23 mmol/L 22-29 Anion Gap (test code = Anion 16 mmol/L 7-16 Gap) BUN (test code = BUN) 22.80 mg/dL 8.00-23.00 Creatinine Level (test code = 1.20 mg/dL 0.70-1.20 Creatinine Level) BUN/Creat Ratio (test code = 19 N BUN/Creat Ratio) Glucose Level (test code = 90 mg/dL 70-115 Glucose Level) Calcium Level (test code = 8.4 mg/dL 8.3-10.5 Calcium Level) Alk Phos (test code = Alk Phos) 123 U/L 40-129 Bilirubin Total (test code = 0.7 mg/dL 0.1-0.9 Bilirubin Total) Albumin Level (test code = 2.9 g/dL 3.5-5.2 L Albumin Level) Protein Total (test code = 5.3 g/dL 6.4-8.3 L Protein Total) ALT (test code = ALT) 35 U/L 1-41 AST (test code = AST) 58 U/L 1-40 H Globulin (test code = Globulin) 2.4 g/dL 2.9-3.1 L A/G Ratio (test code = A/G 1.2 ratio N Ratio) Comprehensive Metabolic [id number] 06:52:14 Test Item Value Reference Range Interpretation Comments Sodium Level (test 135.0 mmol/L 135.0-145.0 code = Sodium Level) Potassium Level 4.2 mmol/L 3.5-5.1 (test code = Potassium Level) Chloride Level (test 96 mmol/L 98-105 L code = Chloride Level) CO2 (test code = 23 mmol/L 22-29 CO2) Anion Gap (test code 16 mmol/L 7-16 = Anion Gap) BUN (test code = 22.80 mg/dL 8.00-23.00 BUN) Creatinine Level 1.20 mg/dL 0.70-1.20 (test code = Creatinine Level) BUN/Creat Ratio 19 N (test code = BUN/Creat Ratio) Glucose Level (test 90 mg/dL 70-115 code = Glucose Level) Calcium Level (test 8.4 mg/dL 8.3-10.5 code = Calcium Level) Alk Phos (test code 123 U/L 40-129 = Alk Phos) Bilirubin Total 0.7 mg/dL 0.1-0.9 (test code = Bilirubin Total) Albumin Level (test 2.9 g/dL 3.5-5.2 L code = Albumin Level) Protein Total (test 5.3 g/dL 6.4-8.3 L code = Protein Total) ALT (test code = 35 U/L 1-41 ALT) AST (test code = 58 U/L 1-40 H AST) Globulin (test code 2.4 g/dL 2.9-3.1 L = Globulin) A/G Ratio (test code 1.2 ratio N = A/G Ratio) eGFR AA (test code = >60 N eGFR (e stimated eGFR AA) mL/min/1.73 m2 Glomerular Filtration Rate ) is an estimated va lue, calculated from the patient's serum creatinine usin g the MDRD equation. It is NOT the patient 's actual GFR. The eGFR provides a more clinically usef ul measure of kidn ey disease than se rum creatinine alone.This calculation judith es sex and race in to account, if the information is provided. If th e race is not provided, and t he patient is -Precious n, multiply by 1.2 12. If sex is not provided, and t he patient is fema le, multiply by 0.7 42. Results for pat ients <18 years of ag e have not been validated by [facility] and should be interpreted wit h caution. eGFR R esult Interpretation: eGFR > or = 60 is in the Normal RangeeGF R < 60 may mean kid galen diseaseeGFR < 1 5 may mean kidney failure Rang es recommended by the National Kidney Foundation, http://nkdep.ni h.gov eGFR Non-AA (test 59.18 N eGFR (amalia mated code = eGFR Non-AA) mL/min/1.73 m2 Glomer ular Filtration Rate ) is an estimated va lue, calculated from the patient's serum creatinine usin g the MDRD equation. It is NOT the patient 's actual GFR. The eGFR provides a more clinically usef ul measure of kidn ey disease than se rum creatinine alone.This calculation judith es sex and race in to account, if the information is provided. If th e race is not provided, and t he patient is -Precious n, multiply by 1.2 12. If sex is not provided, and t he patient is fema le, multiply by 0.7 42. Results for pat ients <18 years of ag e have not been validated by [facility] and should be interpreted wit h caution. eGFR R esult Interpretation: eGFR > or = 60 is in the Normal RangeeGF R < 60 may mean kid galen diseaseeGFR < 1 5 may mean kidney failure Rang es recommended by the National Kidney Foundation, http://nkdep.ni h.gov Comprehensive Metabolic [id number] 06:52:14 Test Item Value Reference Range Interpretation Comments Sodium Level (test 135.0 mmol/L 135.0-145.0 code = Sodium Level) Potassium Level 4.2 mmol/L 3.5-5.1 (test code = Potassium Level) Chloride Level (test 96 mmol/L 98-105 L code = Chloride Level) CO2 (test code = 23 mmol/L 22-29 CO2) Anion Gap (test code 16 mmol/L 7-16 = Anion Gap) BUN (test code = 22.80 mg/dL 8.00-23.00 BUN) Creatinine Level 1.20 mg/dL 0.70-1.20 (test code = Creatinine Level) BUN/Creat Ratio 19 N (test code = BUN/Creat Ratio) Glucose Level (test 90 mg/dL 70-115 code = Glucose Level) Calcium Level (test 8.4 mg/dL 8.3-10.5 code = Calcium Level) Alk Phos (test code 123 U/L 40-129 = Alk Phos) Bilirubin Total 0.7 mg/dL 0.1-0.9 (test code = Bilirubin Total) Albumin Level (test 2.9 g/dL 3.5-5.2 L code = Albumin Level) Protein Total (test 5.3 g/dL 6.4-8.3 L code = Protein Total) ALT (test code = 35 U/L 1-41 ALT) AST (test code = 58 U/L 1-40 H AST) Globulin (test code 2.4 g/dL 2.9-3.1 L = Globulin) A/G Ratio (test code 1.2 ratio N = A/G Ratio) eGFR AA (test code = >60 N eGFR (e stimated eGFR AA) mL/min/1.73 m2 Glomerular Filtration Rate ) is an estimated va lue, calculated from the patient's serum creatinine usin g the MDRD equation. It is NOT the patient 's actual GFR. The eGFR provides a more clinically usef ul measure of kidn ey disease than se rum creatinine alone.This calculation judith es sex and race in to account, if the information is provided. If th e race is not provided, and t he patient is -Precious n, multiply by 1.2 12. If sex is not provided, and t he patient is fema le, multiply by 0.7 42. Results for pat ients <18 years of ag e have not been validated by th e MDRD study and should be interpreted wit h caution. eGFR R esult Interpretation: eGFR > or = 60 is in the Normal RangeeGF R < 60 may mean kid galen diseaseeGFR < 1 5 may mean kidney failure Rang es recommended by the National Kidney Foundation, http://nkdep.ni h.gov eGFR Non-AA (test 59.18 N eGFR (amalia mated code = eGFR Non-AA) mL/min/1.73 m2 Glomer ular Filtration Rate ) is an estimated va lue, calculated from the patient's serum creatinine usin g the MDRD equation. It is NOT the patient 's actual GFR. The eGFR provides a more clinically usef ul measure of kidn ey disease than se rum creatinine alone.This calculation judith es sex and race in to account, if the information is provided. If th e race is not provided, and t he patient is -Precious n, multiply by 1.2 12. If sex is not provided, and t he patient is fema le, multiply by 0.7 42. Results for pat ients <18 years of ag e have not been validated by th e MDRD study and should be interpreted wit h caution. eGFR R esult Interpretation: eGFR > or = 60 is in the Normal RangeeGF R < 60 may mean kid galen diseaseeGFR < 1 5 may mean kidney failure Rang es recommended by the National Kidney Foundation, http://nkdep.ni h.gov Phosphorus [id number] 06:52:01 Test Item Value Reference Range Interpretation Comments Phosphorus Level (test code = 4.30 mg/dL 2.70-4.50 Phosphorus Level) Magnesium [id number] 06:52:00 Test Item Value Reference Range Interpretation Comments Magnesium Level (test code = 1.9 mg/dL 1.7-2.5 Magnesium Level) Complete Blood Count with [id number] 06:16:27 Test Item Value Reference Range Interpretation Comments WBC (test code = WBC) 12.4 x10 4.4-10.5 H RBC (test code = RBC) 3.37 x10 4.10-5.70 L Hgb (test code = Hgb) 11.7 g/dL 13.4-17.4 L MCV (test code = MCV) 101.50 fL 80.00-100.00 H Hct (test code = Hct) 34.2 % 38.7-52.0 L MCHC (test code = 34.20 g/dL 32.00-37.50 MCHC) RDW CV (test code = 14.1 % 11.5-14.5 RDW CV) MCH (test code = MCH) 34.7 pg 27.0-32.5 H Platelets (test code = 209.0 x10 140.0-440.0 Platelets) MPV (test code = MPV) 10.7 fL N Slide Review (test Auto Auto Result cr eated by code = Slide Review) GL_SJM_ SLIDE_REV_AUTO nRBC (test code = 0 N nRBC) NRBC Abs (test code = 0.00 x10 N NRBC Abs) IPF (test code = IPF) 0 % N Automated [id number] 06:16:27 Test Item Value Reference Range Interpretation Comments Neutro Auto (test code = Neutro 77.8 % 36.0-70.0 H Auto) Lymph Auto (test code = Lymph Auto) 8.8 % 12.0-44.0 L Tyrrell Auto (test code = Tyrrell Auto) 9.8 % 0.0-11.0 Eos, Auto (test code = Eos, Auto) 2.4 % 0.0-7.0 Basophil Auto (test code = Basophil 0.4 % 0.0-2.0 Auto) Neutro Absolute (test code = Neutro 9.6 x10 1.6-7.4 H Absolute) Lymph Absolute (test code = Lymph 1.09 x10 .50-4.60 Absolute) Tyrrell Absolute (test code = Tyrrell 1.22 x10 .00-1.20 H Absolute) Eos Absolute (test code = Eos 0.30 x10 0.00-0.74 Absolute) Baso Absolute (test code = Baso 0.05 x10 0.00-0.21 Absolute) IG [id number] 06:16:27 Test Item Value Reference Range Interpretation Comments IG (test code = IG) 0.8 % 0.0-5.0 IG Abs (test code = IG Abs) 0 x10 N POC [id number] 20:14:18 Test Item Value Reference Range Interpretation Comments Glucose POC (test 112 mg/dL 70-115 If you con operator vacuum your code = Glucose POC) patient critically ill, the Sue-Accu Check Infrom II meter should not be used for Glucose determination. Draw a venous Glucose and send to the main Lab for analysis. POC [id number] 16:55:47 Test Item Value Reference Range Interpretation Comments Glucose POC (test 127 mg/dL 70-115 H If you con operator vacuum your code = Glucose POC) patient critically ill, the Sue-Accu Check Infrom II meter should not be used for Glucose determination. Draw a venous Glucose and send to the main Lab for analysis. POC [id number] 11:32:50 Test Item Value Reference Range Interpretation Comments Glucose POC (test 111 mg/dL 70-115 If you con operator vacuum your code = Glucose POC) patient critically ill, the Sue-Accu Check Infrom II meter should not be used for Glucose determination. Draw a venous Glucose and send to the main Lab for analysis. POC [id number] 08:03:21 Test Item Value Reference Range Interpretation Comments Glucose POC (test 98 mg/dL 70-115 If you con operator vacuum your code = Glucose POC) patient critically ill, the Sue-Accu Check Infrom II meter should not be used for Glucose determination. Draw a venous Glucose and send to the main Lab for analysis. Magnesium [id number] 03:55:07 Test Item Value Reference Range Interpretation Comments Magnesium Level (test code = 1.9 mg/dL 1.7-2.5 Magnesium Level) Phosphorus [id number] 03:55:07 Test Item Value Reference Range Interpretation Comments Phosphorus Level (test code = 4.00 mg/dL 2.70-4.50 Phosphorus Level) Comprehensive Metabolic [id number] 03:55:06 Test Item Value Reference Range Interpretation Comments Sodium Level (test code = Sodium 129.0 mmol/L 135.0-145.0 L Level) Potassium Level (test code = 4.3 mmol/L 3.5-5.1 Potassium Level) Chloride Level (test code = 95 mmol/L 98-105 L Chloride Level) CO2 (test code = CO2) 23 mmol/L 22-29 Anion Gap (test code = Anion 11 mmol/L 7-16 Gap) BUN (test code = BUN) 21.00 mg/dL 8.00-23.00 Creatinine Level (test code = 1.20 mg/dL 0.70-1.20 Creatinine Level) BUN/Creat Ratio (test code = 18 N BUN/Creat Ratio) Glucose Level (test code = 114 mg/dL 70-115 Glucose Level) Calcium Level (test code = 8.3 mg/dL 8.3-10.5 Calcium Level) Alk Phos (test code = Alk Phos) 122 U/L 40-129 Bilirubin Total (test code = 1.0 mg/dL 0.1-0.9 H Bilirubin Total) Albumin Level (test code = 2.7 g/dL 3.5-5.2 L Albumin Level) Protein Total (test code = 5.1 g/dL 6.4-8.3 L Protein Total) ALT (test code = ALT) 29 U/L 1-41 AST (test code = AST) 46 U/L 1-40 H Globulin (test code = Globulin) 2.4 g/dL 2.9-3.1 L A/G Ratio (test code = A/G 1.1 ratio N Ratio) Comprehensive Metabolic [id number] 03:55:06 Test Item Value Reference Range Interpretation Comments Sodium Level (test 129.0 mmol/L 135.0-145.0 L code = Sodium Level) Potassium Level 4.3 mmol/L 3.5-5.1 (test code = Potassium Level) Chloride Level (test 95 mmol/L 98-105 L code = Chloride Level) CO2 (test code = 23 mmol/L 22-29 CO2) Anion Gap (test code 11 mmol/L 7-16 = Anion Gap) BUN (test code = 21.00 mg/dL 8.00-23.00 BUN) Creatinine Level 1.20 mg/dL 0.70-1.20 (test code = Creatinine Level) BUN/Creat Ratio 18 N (test code = BUN/Creat Ratio) Glucose Level (test 114 mg/dL 70-115 code = Glucose Level) Calcium Level (test 8.3 mg/dL 8.3-10.5 code = Calcium Level) Alk Phos (test code 122 U/L 40-129 = Alk Phos) Bilirubin Total 1.0 mg/dL 0.1-0.9 H (test code = Bilirubin Total) Albumin Level (test 2.7 g/dL 3.5-5.2 L code = Albumin Level) Protein Total (test 5.1 g/dL 6.4-8.3 L code = Protein Total) ALT (test code = 29 U/L 1-41 ALT) AST (test code = 46 U/L 1-40 H AST) Globulin (test code 2.4 g/dL 2.9-3.1 L = Globulin) A/G Ratio (test code 1.1 ratio N = A/G Ratio) eGFR AA (test code = >60 N eGFR (e stimated eGFR AA) mL/min/1.73 m2 Glomerular Filtration Rate ) is an estimated va lue, calculated from the patient's serum creatinine usin g the MDRD equation. It is NOT the patient 's actual GFR. The eGFR provides a more clinically usef ul measure of kidn ey disease than se rum creatinine alone.This calculation judith es sex and race in to account, if the information is provided. If th e race is not provided, and t he patient is -Precious n, multiply by 1.2 12. If sex is not provided, and t he patient is fema le, multiply by 0.7 42. Results for pat ients <18 years of ag e have not been validated by th e MDRD study and should be interpreted wit h caution. eGFR R esult Interpretation: eGFR > or = 60 is in the Normal RangeeGF R < 60 may mean kid galen diseaseeGFR < 1 5 may mean kidney failure Rang es recommended by the National Kidney Foundation, http://nkdep.ni h.gov Comprehensive Metabolic [id number] 03:55:06 Test Item Value Reference Range Interpretation Comments Sodium Level (test 129.0 mmol/L 135.0-145.0 L code = Sodium Level) Potassium Level 4.3 mmol/L 3.5-5.1 (test code = Potassium Level) Chloride Level (test 95 mmol/L 98-105 L code = Chloride Level) CO2 (test code = 23 mmol/L 22-29 CO2) Anion Gap (test code 11 mmol/L 7-16 = Anion Gap) BUN (test code = 21.00 mg/dL 8.00-23.00 BUN) Creatinine Level 1.20 mg/dL 0.70-1.20 (test code = Creatinine Level) BUN/Creat Ratio 18 N (test code = BUN/Creat Ratio) Glucose Level (test 114 mg/dL 70-115 code = Glucose Level) Calcium Level (test 8.3 mg/dL 8.3-10.5 code = Calcium Level) Alk Phos (test code 122 U/L 40-129 = Alk Phos) Bilirubin Total 1.0 mg/dL 0.1-0.9 H (test code = Bilirubin Total) Albumin Level (test 2.7 g/dL 3.5-5.2 L code = Albumin Level) Protein Total (test 5.1 g/dL 6.4-8.3 L code = Protein Total) ALT (test code = 29 U/L 1-41 ALT) AST (test code = 46 U/L 1-40 H AST) Globulin (test code 2.4 g/dL 2.9-3.1 L = Globulin) A/G Ratio (test code 1.1 ratio N = A/G Ratio) eGFR AA (test code = >60 N eGFR (e stimated eGFR AA) mL/min/1.73 m2 Glomerular Filtration Rate ) is an estimated va lue, calculated from the patient's serum creatinine usin g the MDRD equation. It is NOT the patient 's actual GFR. The eGFR provides a more clinically usef ul measure of kidn ey disease than se rum creatinine alone.This calculation judith es sex and race in to account, if the information is provided. If th e race is not provided, and t he patient is -Precious n, multiply by 1.2 12. If sex is not provided, and t he patient is fema le, multiply by 0.7 42. Results for pat ients <18 years of ag e have not been validated by th e MDRD study and should be interpreted wit h caution. eGFR R esult Interpretation: eGFR > or = 60 is in the Normal RangeeGF R < 60 may mean kid galen diseaseeGFR < 1 5 may mean kidney failure Rang es recommended by the National Kidney Foundation, http://nkdep.ni h.gov eGFR Non-AA (test 59.18 N eGFR (amalia mated code = eGFR Non-AA) mL/min/1.73 m2 Glomer ular Filtration Rate ) is an estimated va lue, calculated from the patient's serum creatinine usin g the MDRD equation. It is NOT the patient 's actual GFR. The eGFR provides a more clinically usef ul measure of kidn ey disease than se rum creatinine alone.This calculation judith es sex and race in to account, if the information is provided. If th e race is not provided, and t he patient is -Precious n, multiply by 1.2 12. If sex is not provided, and t he patient is femchelly le, multiply by 0.7 42. Results for pat ients <18 years of ag e have not been validated by e MDRD study and should be interpreted wit h caution. eGFR R esult Interpretation: eGFR > or = 60 is in the Normal RangeeGF R < 60 may mean kid galen diseaseeGFR < 1 5 may mean kidney failure Rang es recommended by the National Kidney Foundation, http://nkdep.ni h.gov Complete Blood Count with [id number] 03:35:45 Test Item Value Reference Range Interpretation Comments WBC (test code = WBC) 15.1 x10 4.4-10.5 H RBC (test code = RBC) 3.21 x10 4.10-5.70 L Hgb (test code = Hgb) 11.0 g/dL 13.4-17.4 L Hct (test code = Hct) 32.4 % 38.7-52.0 L MCV (test code = MCV) 100.90 fL 80.00-100.00 H MCHC (test code = 34.00 g/dL 32.00-37.50 MCHC) MCH (test code = MCH) 34.3 pg 27.0-32.5 H RDW CV (test code = 14.1 % 11.5-14.5 RDW CV) Platelets (test code = 178.0 x10 140.0-440.0 Platelets) MPV (test code = MPV) 10.4 fL N Slide Review (test Auto Auto Result cr eated by code = Slide Review) GL_SJM_ SLIDE_REV_AUTO nRBC (test code = 0 N nRBC) NRBC Abs (test code = 0.00 x10 N NRBC Abs) IPF (test code = IPF) 0 % N Automated [id number] 03:35:45 Test Item Value Reference Range Interpretation Comments Neutro Auto (test code = Neutro 82.8 % 36.0-70.0 H Auto) Lymph Auto (test code = Lymph Auto) 7.7 % 12.0-44.0 L Tyrrell Auto (test code = Tyrrell Auto) 7.4 % 0.0-11.0 Eos, Auto (test code = Eos, Auto) 1.1 % 0.0-7.0 Basophil Auto (test code = Basophil 0.2 % 0.0-2.0 Auto) Neutro Absolute (test code = Neutro 12.5 x10 1.6-7.4 H Absolute) Lymph Absolute (test code = Lymph 1.16 x10 .50-4.60 Absolute) Tyrrell Absolute (test code = Tyrrell 1.12 x10 .00-1.20 Absolute) Eos Absolute (test code = Eos 0.17 x10 0.00-0.74 Absolute) Baso Absolute (test code = Baso 0.03 x10 0.00-0.21 Absolute) IG [id number] 03:35:45 Test Item Value Reference Range Interpretation Comments IG (test code = IG) 0.8 % 0.0-5.0 IG Abs (test code = IG Abs) 0 x10 N XR Chest 1 View [id number] 22:07:08Patient: GRETEL SULTANA Date/Time08/28/2019 21:36 CSTReason for Examchest tube removal.;Other (please specify)ReportEXAM: XR Chest 1 ViewINDICATION: Other (please specify);chest tube removal.LOCATION CODE: R 16COMPARISON: Chest radiograph dated 08/28/2019 at 4:13 AMTECHNIQUE: Frontal view of the chest was obtained.FINDINGS:Coiled wires from cardiac monitoring leads overlie the chest, limiting evaluation. There has been interval removal of the midline and two left chest tubes. Right internal jugular central venous catheter is in unchanged position. Lung volumes are low. There is unchanged pulmonary vascular congestion. Bilateral pleural effusions are unchanged from prior. There is no pneumothorax. The cardiomediastinal silhouette is unchanged. No acute osseous abnormality is identified.IMPRESSION:1. Interval removal of midline and two left chest tubes. No pneumothorax is seen.2. Low lung volumes with unchanged pulmonary vascular congestion bilateral pleural effusions. Final Dictated by: Contributor_systemANGELITA_CTZDictated DT/TM: 08/28/2019 10:03 pmSigned by: Contributor_system PSCRIALEXANDRA_CTZSigned (Electronic Signature): 08/28/2019 10:07 pmPOC [id number] 20:24:15 Test Item Value Reference Range Interpretation Comments Glucose POC (test 105 mg/dL 70-115 If you con operator vacuum your code = Glucose POC) patient critically ill, the Seu-Accu Check Infrom II meter should not be used for Glucose determination. Draw a venous Glucose and send to the main Lab for analysis. XR Chest 1 View [id number] 07:44:00Patient: GRETEL SULTANA Date/Time08/28/2019 04:51 CSTReason for ExamDifficulty breathingReportEXAM: XR Chest 1 View FrontalHISTORY: DyspneaLocation code: R 16COMPARISON: Chest radiograph from prior dayFINDINGS:Right IJ catheter tip is at the mid SVC. Hazy diffuse bilateral pulmonary opacities persist. A central vascular congestion. Blunting at costophrenic angles. No evidence of pneumothorax.Cardiomediastinal silhouette is stable. Sternal wires and mediastinal clips are seen. Mediastinal drain and chest tubes remain. There appears to be epicardial pacer leads imposing the cardiac base. Multiple other leads and wires superimpose the chest.Galt-Su catheter has been discontinued.IMPRESSION:1. Persistent moderate interstitial edema with small bilateral pleural effusions.2. Interval discontinuation of the Galt-Su catheter. Final Dictated by: MD Otto, Zainab FDictated DT/TM: 08/28/2019 7:42 amSigned by: MD Menjivar Eniola FSigned (Electronic Signature): 08/28/2019 7:44 amBasic Metabolic Panel 2019-08-28 03:55:24 Test Item Value Reference Range Interpretation Comments Sodium Level (test code = Sodium 131.0 mmol/L 135.0-145.0 L Level) Potassium Level (test code = 4.3 mmol/L 3.5-5.1 Potassium Level) Chloride Level (test code = 103 mmol/L 98-105 Chloride Level) CO2 (test code = CO2) 19 mmol/L 22-29 L Anion Gap (test code = Anion 9 mmol/L 7-16 Gap) BUN (test code = BUN) 19.30 mg/dL 8.00-23.00 Creatinine Level (test code = 1.10 mg/dL 0.70-1.20 Creatinine Level) BUN/Creat Ratio (test code = 18 N BUN/Creat Ratio) Glucose Level (test code = 103 mg/dL 70-115 Glucose Level) Calcium Level (test code = 7.1 mg/dL 8.3-10.5 L Calcium Level) Magnesium [id number] 03:55:24 Test Item Value Reference Range Interpretation Comments Magnesium Level (test code = 1.7 mg/dL 1.7-2.5 Magnesium Level) Basic Metabolic [id number] 03:55:24 Test Item Value Reference Range Interpretation Comments Sodium Level (test 131.0 mmol/L 135.0-145.0 L code = Sodium Level) Potassium Level 4.3 mmol/L 3.5-5.1 (test code = Potassium Level) Chloride Level (test 103 mmol/L 98-105 code = Chloride Level) CO2 (test code = 19 mmol/L 22-29 L CO2) Anion Gap (test code 9 mmol/L 7-16 = Anion Gap) BUN (test code = 19.30 mg/dL 8.00-23.00 BUN) Creatinine Level 1.10 mg/dL 0.70-1.20 (test code = Creatinine Level) BUN/Creat Ratio 18 N (test code = BUN/Creat Ratio) Glucose Level (test 103 mg/dL 70-115 code = Glucose Level) Calcium Level (test 7.1 mg/dL 8.3-10.5 L code = Calcium Level) eGFR AA (test code = >60 N eGFR (e stimated eGFR AA) mL/min/1.73 m2 Glomerular Filtration Rate ) is an estimated va lue, calculated from the patient's serum creatinine usin g the MDRD equation. It is NOT the patient 's actual GFR. The eGFR provides a more clinically usef ul measure of kidn ey disease than se rum creatinine alone.This calculation judith es sex and race in to account, if the information is provided. If th e race is not provided, and t he patient is -Precious n, multiply by 1.2 12. If sex is not provided, and t he patient is fema le, multiply by 0.7 42. Results for pat ients <18 years of ag e have not been validated by th e MDRD study and should be interpreted wit h caution. eGFR R esult Interpretation: eGFR > or = 60 is in the Normal RangeeGF R < 60 may mean kid galen diseaseeGFR < 1 5 may mean kidney failure Rang es recommended by the National Kidney Foundation, http://nkdep.ni h.gov Phosphorus [id number] 03:55:24 Test Item Value Reference Range Interpretation Comments Phosphorus Level (test code = 3.40 mg/dL 2.70-4.50 Phosphorus Level) Basic Metabolic [id number] 03:55:24 Test Item Value Reference Range Interpretation Comments Sodium Level (test 131.0 mmol/L 135.0-145.0 L code = Sodium Level) Potassium Level 4.3 mmol/L 3.5-5.1 (test code = Potassium Level) Chloride Level (test 103 mmol/L 98-105 code = Chloride Level) CO2 (test code = 19 mmol/L 22-29 L CO2) Anion Gap (test code 9 mmol/L 7-16 = Anion Gap) BUN (test code = 19.30 mg/dL 8.00-23.00 BUN) Creatinine Level 1.10 mg/dL 0.70-1.20 (test code = Creatinine Level) BUN/Creat Ratio 18 N (test code = BUN/Creat Ratio) Glucose Level (test 103 mg/dL 70-115 code = Glucose Level) Calcium Level (test 7.1 mg/dL 8.3-10.5 L code = Calcium Level) eGFR AA (test code = >60 N eGFR (e stimated eGFR AA) mL/min/1.73 m2 Glomerular Filtration Rate ) is an estimated va lue, calculated from the patient's serum creatinine usin g the MDRD equation. It is NOT the patient 's actual GFR. The eGFR provides a more clinically usef ul measure of kidn ey disease than se rum creatinine alone.This calculation judith es sex and race in to account, if the information is provided. If th e race is not provided, and t he patient is -Precious n, multiply by 1.2 12. If sex is not provided, and t he patient is fema le, multiply by 0.7 42. Results for pat ients <18 years of ag e have not been validated by th e MDRD study and should be interpreted wit h caution. eGFR R esult Interpretation: eGFR > or = 60 is in the Normal RangeeGF R < 60 may mean kid galen diseaseeGFR < 1 5 may mean kidney failure Rang es recommended by the National Kidney Foundation, http://nkdep.ni h.gov eGFR Non-AA (test >60.00 N eGFR (amalia mated code = eGFR Non-AA) mL/min/1.73 m2 Glomer ular Filtration Rate ) is an estimated va lue, calculated from the patient's serum creatinine usin g the MDRD equation. It is NOT the patient 's actual GFR. The eGFR provides a more clinically usef ul measure of kidn ey disease than se rum creatinine alone.This calculation judith es sex and race in to account, if the information is provided. If th e race is not provided, and t he patient is -Precious n, multiply by 1.2 12. If sex is not provided, and t he patient is fema le, multiply by 0.7 42. Results for pat ients <18 years of ag e have not been validated by e MDRD study and should be interpreted wit h caution. eGFR R esult Interpretation: eGFR > or = 60 is in the Normal RangeeGF R < 60 may mean kid galen diseaseeGFR < 1 5 may mean kidney failure Rang es recommended by the National Kidney Foundation, http://nkdep.ni h.gov Automated [id number] 03:35:20 Test Item Value Reference Range Interpretation Comments Neutro Auto (test code = Neutro 85.7 % 36.0-70.0 H Auto) Lymph Auto (test code = Lymph Auto) 7.6 % 12.0-44.0 L Tyrrell Auto (test code = Tyrrell Auto) 5.2 % 0.0-11.0 Eos, Auto (test code = Eos, Auto) 0.3 % 0.0-7.0 Basophil Auto (test code = Basophil 0.2 % 0.0-2.0 Auto) Neutro Absolute (test code = Neutro 13.2 x10 1.6-7.4 H Absolute) Lymph Absolute (test code = Lymph 1.17 x10 .50-4.60 Absolute) Tyrrell Absolute (test code = Tyrrell .81 x10 .00-1.20 Absolute) Eos Absolute (test code = Eos 0.04 x10 0.00-0.74 Absolute) Baso Absolute (test code = Baso 0.03 x10 0.00-0.21 Absolute) IG [id number] 03:35:20 Test Item Value Reference Range Interpretation Comments IG (test code = IG) 1.0 % 0.0-5.0 IG Abs (test code = IG Abs) 0 x10 N Complete Blood Count with [id number] 03:35:19 Test Item Value Reference Range Interpretation Comments WBC (test code = WBC) 15.4 x10 4.4-10.5 H RBC (test code = RBC) 2.96 x10 4.10-5.70 L Hgb (test code = Hgb) 10.2 g/dL 13.4-17.4 L Hct (test code = Hct) 29.9 % 38.7-52.0 L MCV (test code = MCV) 101.00 fL 80.00-100.00 H MCHC (test code = 34.10 g/dL 32.00-37.50 MCHC) MCH (test code = MCH) 34.5 pg 27.0-32.5 H RDW CV (test code = 14.6 % 11.5-14.5 H RDW CV) Platelets (test code = 133.0 x10 140.0-440.0 L Platelets) MPV (test code = MPV) 10.8 fL N Slide Review (test Auto Auto Result cr eated by code = Slide Review) GL_SJM_ SLIDE_REV_AUTO GL_SJM_XN_RFLX GL_SJM_XN_RFLX nRBC (test code = 0 N nRBC) NRBC Abs (test code = 0.00 x10 N NRBC Abs) IPF (test code = IPF) 3 % N Complete Blood Count with [id number] 03:35:19 Test Item Value Reference Range Interpretation Comments WBC (test code = WBC) 15.4 x10 4.4-10.5 H RBC (test code = RBC) 2.96 x10 4.10-5.70 L Hgb (test code = Hgb) 10.2 g/dL 13.4-17.4 L Hct (test code = Hct) 29.9 % 38.7-52.0 L MCV (test code = MCV) 101.00 fL 80.00-100.00 H MCHC (test code = 34.10 g/dL 32.00-37.50 MCHC) RDW CV (test code = 14.6 % 11.5-14.5 H RDW CV) MCH (test code = MCH) 34.5 pg 27.0-32.5 H Platelets (test code = 133.0 x10 140.0-440.0 L Platelets) MPV (test code = MPV) 10.8 fL N Slide Review (test Auto Auto Result cr eated by code = Slide Review) GL_SJM_ SLIDE_REV_AUTO GL_SJM_XN_RFLX GL_SJM_XN_RFLX nRBC (test code = 0 N nRBC) NRBC Abs (test code = 0.00 x10 N NRBC Abs) Pos Count XN (test A N code = Pos Count XN) IPF (test code = IPF) 3 % N POC [id number] 20:43:46 Test Item Value Reference Range Interpretation Comments Glucose POC (test 118 mg/dL 70-115 H If you con operator vacuum your code = Glucose POC) patient critically ill, the Sue-Accu Check Infrom II meter should not be used for Glucose determination. Draw a venous Glucose and send to the main Lab for analysis. CT Brain/Head w/o [id number] 15:07:50Patient: GRETEL SULTANA Date/Time08/27/2019 15:01 CSTReason for Examvisual hullucinations;Other (please specify)ReportCT HEAD WITHOUT CONTRASTCLINICAL HISTORY: Other (please specify);visual hallucinationsCOMPARISON: CT head dated August 24, 2019TECHNIQUE: 5 mm axial images of the brain were obtained without contrast. Coronal and sagittal ref ormats were obtained. One or more of the following dose reduction techniques were used: Automated exposure control, adjustment of the mA and/or kV according to patient size, and/or utilization of iterative reconstruction technique.FINDINGS: There is no acute intracranial hemorrhage or extra-axial collection. The mendez-white matter differentiation is well-preserved without evidence of edema or acute infarct. There is no hydrocephalus, midline shift, or mass effect.The cranial vault and skull base are intact. Calcifications are noted in the carotid siphons. The paranasal sinuses and mastoid air cells are pneumatized and well-aerated.IMPRESSION: No acute intracranial abnormalityLocation: R16 Final Dictated by: MD Das Adam FDictated DT/TM: 08/27/2019 3:04 pmSigned by: MD Das Adam FSigned (Electronic Signature): 08/27/2019 3:07 pmRespiratory Culture w/ Gram Stain 2019-08-27 11:08:13 Test Item Value Reference Interpretation Comments Range ORGANISM (test code = Staphylococcus ORGANISM) aureus Amoxicillin/Clavulana S te (test code = Amox/Cla) Ampicillin/Sulbactam S (test code = Amp/Sul) Cefazolin (test code S = Cefaz) Ceftriaxone (test S code = Ceftri) Chloramphenicol (test S code = Chlor) Ciprofloxacin (test S code = Cipro) Erythromycin (test R code = Eryth) Gentamicin (test code S The or ganism is = Gent) presumed to be resistant to Clindamycin, based upon detection of inducible Clindamycin resistance. Clindamycin may still be effective in some patients. Imipenem (test code = S Imi) Levofloxacin (test S code = Levo) Linezolid (test code S = Linez) Oxacillin (test code S = Ox) Penicillin (test code R = Pen) Rifampin (test code = S Rif) Tetracycline (test S code = Tetra) Trimethoprim/Sulfa S (test code = SXT) Vancomycin (test code S = Vanc) Final Report (test Rare Staphylococcus code = Final Report) aureus Normal rachel at 24 hours Normal rachel at 48 hours Few Yeast Gram Stain Report Grams morphology (test code = Gram consistent with Stain Report) normal rachel with: Few White Blood Cells Moderate epithelial cells XR Chest 1 View [id number] 08:02:51Patient: GRETEL SULTANA Date/Time08/27/2019 07:50 CSTReason for Exams/p cabg;Other (please specify)ReportCLINICAL INFORMATION: Status post coronary bypass.Dictation Location: 16Comparison: 08/26/2019Technique: Portable AP 0706 hoursFINDINGS:Chest is postoperative with monitoring electrodes, sternal wire sutures, and numerous support tubes and lines. The chest tubes remain however the ET tube has been removed. Heart size is mildly prominent. There is diffuse interstitial prominence, possibly emphasized by the radiographic technique. However lungs and costophrenic angles could indicate bilateral effusions. The bones are otherwise intact.Impression:1. Status post median sternotomy.2. Removal of ET tube.3. Question of developing effusions.* Final Dictated by: MD Schilling Andrew GDictated DT/TM: 08/27/2019 8:00 amSigned by: MD Schilling Andrew GSigned (Electronic Signature): 08/27/2019 8:02 amManual [id number] 04:46:29 Test Item Value Reference Range Interpretation Comments Segs Man (test code = Segs Man) 89.0 % 36.0-70.0 H Band Man (test code = Band Man) 0.0 % 0.0-6.0 Lymph Man (test code = Lymph 6.0 % 12.0-44.0 L Man) Monocyte Man (test code = 5.0 % 0.0-11.0 Monocyte Man) Eos Man (test code = Eos Man) 0.0 % 0.0-7.0 Basophil Man (test code = 0.0 0.0-2.0 Basophil Man) Neut Man Abs (test code = Neut 20.2 x10 1.6-7.4 H Man Abs) Lymph Man Abs (test code = Lymph 1.4 x10 0.5-4.6 Man Abs) Tyrrell Man Abs (test code = Tyrrell 1.1 x10 0.0-1.2 Man Abs) Eos Man Abs (test code = Eos Man 0.00 x10 0.00-0.74 Abs) Baso Man Abs (test code = Baso 0.00 x10 0.00-0.21 Man Abs) RBC Morph (test code = RBC As Indicated Normal A Morph) Anisocyte (test code = 1+ None Anisocyte) Macrocyte (test code = 1+ None Seen Macrocyte) Plt Estimation (test code = Plt Normal Normal Estimation) Manual [id number] 04:46:29 Test Item Value Reference Range Interpretation Comments Segs Man (test code = Segs Man) 89.0 % 36.0-70.0 H Band Man (test code = Band Man) 0.0 % 0.0-6.0 Lymph Man (test code = Lymph 6.0 % 12.0-44.0 L Man) Monocyte Man (test code = 5.0 % 0.0-11.0 Monocyte Man) Eos Man (test code = Eos Man) 0.0 % 0.0-7.0 Basophil Man (test code = 0.0 0.0-2.0 Basophil Man) Neut Man Abs (test code = Neut 20.2 x10 1.6-7.4 H Man Abs) Lymph Man Abs (test code = Lymph 1.4 x10 0.5-4.6 Man Abs) Tyrrell Man Abs (test code = Tyrrell 1.1 x10 0.0-1.2 Man Abs) Eos Man Abs (test code = Eos Man 0.00 x10 0.00-0.74 Abs) Baso Man Abs (test code = Baso 0.00 x10 0.00-0.21 Man Abs) RBC Morph (test code = RBC As Indicated Normal A Morph) Hypochromia (test code = None Seen None Seen Hypochromia) Anisocyte (test code = 1+ None Anisocyte) Microcyte (test code = None Seen None Seen Microcyte) Macrocyte (test code = 1+ None Seen Macrocyte) Poik (test code = Poik) None Seen None Seen Polychrom (test code = None Seen None Seen Polychrom) Acanthocyte (test code = None Seen None Seen Acanthocyte) Baso Stippling RBC (test code = None Seen None Seen Baso Stippling RBC) Plt Estimation (test code = Plt Normal Normal Estimation) Comprehensive Metabolic [id number] 04:36:15 Test Item Value Reference Range Interpretation Comments Sodium Level (test code = Sodium 133.0 mmol/L 135.0-145.0 L Level) Potassium Level (test code = 4.7 mmol/L 3.5-5.1 Potassium Level) Chloride Level (test code = 102 mmol/L 98-105 Chloride Level) CO2 (test code = CO2) 20 mmol/L 22-29 L Anion Gap (test code = Anion 11 mmol/L 7-16 Gap) BUN (test code = BUN) 21.10 mg/dL 8.00-23.00 Creatinine Level (test code = 1.20 mg/dL 0.70-1.20 Creatinine Level) BUN/Creat Ratio (test code = 18 N BUN/Creat Ratio) Glucose Level (test code = 187 mg/dL 70-115 H Glucose Level) Calcium Level (test code = 7.4 mg/dL 8.3-10.5 L Calcium Level) Alk Phos (test code = Alk Phos) 60 U/L 40-129 Bilirubin Total (test code = 0.4 mg/dL 0.1-0.9 Bilirubin Total) Albumin Level (test code = 2.8 g/dL 3.5-5.2 L Albumin Level) Protein Total (test code = 4.8 g/dL 6.4-8.3 L Protein Total) ALT (test code = ALT) 28 U/L 1-41 AST (test code = AST) 98 U/L 1-40 H Globulin (test code = Globulin) 2.0 g/dL 2.9-3.1 L A/G Ratio (test code = A/G 1.4 ratio N Ratio) Comprehensive Metabolic [id number] 04:36:15 Test Item Value Reference Range Interpretation Comments Sodium Level (test 133.0 mmol/L 135.0-145.0 L code = Sodium Level) Potassium Level 4.7 mmol/L 3.5-5.1 (test code = Potassium Level) Chloride Level (test 102 mmol/L 98-105 code = Chloride Level) CO2 (test code = 20 mmol/L 22-29 L CO2) Anion Gap (test code 11 mmol/L 7-16 = Anion Gap) BUN (test code = 21.10 mg/dL 8.00-23.00 BUN) Creatinine Level 1.20 mg/dL 0.70-1.20 (test code = Creatinine Level) BUN/Creat Ratio 18 N (test code = BUN/Creat Ratio) Glucose Level (test 187 mg/dL 70-115 H code = Glucose Level) Calcium Level (test 7.4 mg/dL 8.3-10.5 L code = Calcium Level) Alk Phos (test code 60 U/L 40-129 = Alk Phos) Bilirubin Total 0.4 mg/dL 0.1-0.9 (test code = Bilirubin Total) Albumin Level (test 2.8 g/dL 3.5-5.2 L code = Albumin Level) Protein Total (test 4.8 g/dL 6.4-8.3 L code = Protein Total) ALT (test code = 28 U/L 1-41 ALT) AST (test code = 98 U/L 1-40 H AST) Globulin (test code 2.0 g/dL 2.9-3.1 L = Globulin) A/G Ratio (test code 1.4 ratio N = A/G Ratio) eGFR AA (test code = >60 N eGFR (e stimated eGFR AA) mL/min/1.73 m2 Glomerular Filtration Rate ) is an estimated va lue, calculated from the patient's serum creatinine usin g the MDRD equation. It is NOT the patient 's actual GFR. The eGFR provides a more clinically usef ul measure of kidn ey disease than se rum creatinine alone.This calculation judith es sex and race in to account, if the information is provided. If th e race is not provided, and t he patient is -Precious n, multiply by 1.2 12. If sex is not provided, and t he patient is fema le, multiply by 0.7 42. Results for pat ients <18 years of ag e have not been validated by th e MDRD study and should be interpreted wit h caution. eGFR R esult Interpretation: eGFR > or = 60 is in the Normal RangeeGF R < 60 may mean kid galen diseaseeGFR < 1 5 may mean kidney failure Rang es recommended by the National Kidney Foundation, http://nkdep.ni h.gov Magnesium [id number] 04:36:15 Test Item Value Reference Range Interpretation Comments Magnesium Level (test code = 2.0 mg/dL 1.7-2.5 Magnesium Level) Phosphorus [id number] 04:36:15 Test Item Value Reference Range Interpretation Comments Phosphorus Level (test code = 3.40 mg/dL 2.70-4.50 Phosphorus Level) Comprehensive Metabolic [id number] 04:36:15 Test Item Value Reference Range Interpretation Comments Sodium Level (test 133.0 mmol/L 135.0-145.0 L code = Sodium Level) Potassium Level 4.7 mmol/L 3.5-5.1 (test code = Potassium Level) Chloride Level (test 102 mmol/L 98-105 code = Chloride Level) CO2 (test code = 20 mmol/L 22-29 L CO2) Anion Gap (test code 11 mmol/L 7-16 = Anion Gap) BUN (test code = 21.10 mg/dL 8.00-23.00 BUN) Creatinine Level 1.20 mg/dL 0.70-1.20 (test code = Creatinine Level) BUN/Creat Ratio 18 N (test code = BUN/Creat Ratio) Glucose Level (test 187 mg/dL 70-115 H code = Glucose Level) Calcium Level (test 7.4 mg/dL 8.3-10.5 L code = Calcium Level) Alk Phos (test code 60 U/L 40-129 = Alk Phos) Bilirubin Total 0.4 mg/dL 0.1-0.9 (test code = Bilirubin Total) Albumin Level (test 2.8 g/dL 3.5-5.2 L code = Albumin Level) Protein Total (test 4.8 g/dL 6.4-8.3 L code = Protein Total) ALT (test code = 28 U/L 1-41 ALT) AST (test code = 98 U/L 1-40 H AST) Globulin (test code 2.0 g/dL 2.9-3.1 L = Globulin) A/G Ratio (test code 1.4 ratio N = A/G Ratio) eGFR AA (test code = >60 N eGFR (e stimated eGFR AA) mL/min/1.73 m2 Glomerular Filtration Rate ) is an estimated va lue, calculated from the patient's serum creatinine usin g the MDRD equation. It is NOT the patient 's actual GFR. The eGFR provides a more clinically usef ul measure of kidn ey disease than se rum creatinine alone.This calculation judith es sex and race in to account, if the information is provided. If th e race is not provided, and t he patient is -Precoius n, multiply by 1.2 12. If sex is not provided, and t he patient is fema le, multiply by 0.7 42. Results for pat ients <18 years of ag e have not been validated by th e MDRD study and should be interpreted wit h caution. eGFR R esult Interpretation: eGFR > or = 60 is in the Normal RangeeGF R < 60 may mean kid galen diseaseeGFR < 1 5 may mean kidney failure Rang es recommended by the National Kidney Foundation, http://nkdep.ni h.gov eGFR Non-AA (test 59.18 N eGFR (amalia mated code = eGFR Non-AA) mL/min/1.73 m2 Glomer ular Filtration Rate ) is an estimated va lue, calculated from the patient's serum creatinine usin g the MDRD equation. It is NOT the patient 's actual GFR. The eGFR provides a more clinically usef ul measure of kidn ey disease than se rum creatinine alone.This calculation judith es sex and race in to account, if the information is provided. If th e race is not provided, and t he patient is -Precious n, multiply by 1.2 12. If sex is not provided, and t he patient is fema le, multiply by 0.7 42. Results for pat ients <18 years of ag e have not been validated by e MDRD study and should be interpreted wit h caution. eGFR R esult Interpretation: eGFR > or = 60 is in the Normal RangeeGF R < 60 may mean kid galen diseaseeGFR < 1 5 may mean kidney failure Rang es recommended by the National Kidney Foundation, http://nkdep.ni h.gov Complete Blood Count with [id number] 04:19:32 Test Item Value Reference Range Interpretation Comments WBC (test code = WBC) 22.7 x10 4.4-10.5 H RBC (test code = RBC) 3.17 x10 4.10-5.70 L Hgb (test code = Hgb) 10.9 g/dL 13.4-17.4 L MCV (test code = MCV) 100.30 fL 80.00-100.00 H Hct (test code = Hct) 31.8 % 38.7-52.0 L MCHC (test code = 34.30 g/dL 32.00-37.50 MCHC) RDW CV (test code = 15.0 % 11.5-14.5 H RDW CV) MCH (test code = MCH) 34.4 pg 27.0-32.5 H Platelets (test code = 145.0 x10 140.0-440.0 Platelets) MPV (test code = MPV) 10.5 fL N Slide Review (test Manual Auto A Result cr eated by code = Slide Review) GL_SJM_ SLIDE_REV_AUTO GL_SJM_XN_RFLX GL_SJM_XN_RFLX nRBC (test code = 0 N nRBC) NRBC Abs (test code = 0.00 x10 N NRBC Abs) Pos Count XN (test A N code = Pos Count XN) IPF (test code = IPF) 3 % N IG [id number] 04:19:32 Test Item Value Reference Range Interpretation Comments IG (test code = IG) 0.7 % 0.0-5.0 IG Abs (test code = IG Abs) 0 x10 N Complete Blood Count with [id number] 04:19:32 Test Item Value Reference Range Interpretation Comments WBC (test code = WBC) 22.7 x10 4.4-10.5 H RBC (test code = RBC) 3.17 x10 4.10-5.70 L Hgb (test code = Hgb) 10.9 g/dL 13.4-17.4 L Hct (test code = Hct) 31.8 % 38.7-52.0 L MCV (test code = MCV) 100.30 fL 80.00-100.00 H MCHC (test code = 34.30 g/dL 32.00-37.50 MCHC) RDW CV (test code = 15.0 % 11.5-14.5 H RDW CV) MCH (test code = MCH) 34.4 pg 27.0-32.5 H Platelets (test code = 145.0 x10 140.0-440.0 Platelets) MPV (test code = MPV) 10.5 fL N Slide Review (test Manual Auto A Result cr eated by code = Slide Review) GL_SJM_ SLIDE_REV_AUTO GL_SJM_XN_RFLX GL_SJM_XN_RFLX nRBC (test code = 0 N nRBC) NRBC Abs (test code = 0.00 x10 N NRBC Abs) Pos Diff XN (test code A N = Pos Diff XN) Pos Count XN (test A N code = Pos Count XN) IPF (test code = IPF) 3 % N POC [id number] 01:07:05 Test Item Value Reference Range Interpretation Comments Glucose POC (test 153 mg/dL 70-115 H If you con operator vacuum your code = Glucose POC) patient critically ill, the Sue-Accu Check Infrom II meter should not be used for Glucose determination. Draw a venous Glucose and send to the main Lab for analysis. POC [id number] 20:26:38 Test Item Value Reference Range Interpretation Comments Glucose POC (test 145 mg/dL 70-115 H If you con operator vacuum your code = Glucose POC) patient critically ill, the Sue-Accu Check Infrom II meter should not be used for Glucose determination. Draw a venous Glucose and send to the main Lab for analysis. POC [id number] 16:36:39 Test Item Value Reference Range Interpretation Comments Glucose POC (test 143 mg/dL 70-115 H If you con operator vacuum your code = Glucose POC) patient critically ill, the Sue-Accu Check Infrom II meter should not be used for Glucose determination. Draw a venous Glucose and send to the main Lab for analysis. POC [id number] 12:44:36 Test Item Value Reference Range Interpretation Comments Glucose POC (test 157 mg/dL 70-115 H If you con operator vacuum your code = Glucose POC) patient critically ill, the Sue-Accu Check Infrom II meter should not be used for Glucose determination. Draw a venous Glucose and send to the main Lab for analysis. POC [id number] 10:43:40 Test Item Value Reference Range Interpretation Comments Glucose POC (test 135 mg/dL 70-115 H If you con operator vacuum your code = Glucose POC) patient critically ill, the Sue-Accu Check Infrom II meter should not be used for Glucose determination. Draw a venous Glucose and send to the main Lab for analysis. POC [id number] 09:33:37 Test Item Value Reference Range Interpretation Comments Glucose POC (test 83 mg/dL 70-115 If you con operator vacuum your code = Glucose POC) patient critically ill, the Sue-Accu Check Infrom II meter should not be used for Glucose determination. Draw a venous Glucose and send to the main Lab for analysis. POC [id number] 08:23:06 Test Item Value Reference Range Interpretation Comments Glucose POC (test 83 mg/dL 70-115 If you con operator vacuum your code = Glucose POC) patient critically ill, the Sue-Accu Check Infrom II meter should not be used for Glucose determination. Draw a venous Glucose and send to the main Lab for analysis. XR Chest 1 View [id number] 07:41:57Patient: GRETEL SULTANA Date/Time08/26/2019 05:26 CSTReason for ExamDifficulty breathingReportEXAM: XR Chest 1 View FrontalHISTORY: DifficultybreathingLocation code:[id number]: Multiple priors, most recently dated 08/25/2019FINDINGS:SingleAP view of the chest is provided.ETT is approximately 6 cm above the tin, unchanged accounting for differences in patient positioning. Right IJ approach Galt-Su catheter terminates over the pulmonary trunk as before. Mediastinal tubes/catheters and left chest tubes, also unchanged. Median sternotomy wires appear aligned and intact.Heart size and vascularity are within normal limits.Mild bibasilar airspace opacity, right greater than left, appears slightly more prominent since prior exam likely a telectasis. There is no new focal consolidation, large effusion or appreciable pneumothorax.Stable minimally displaced left upper posterior rib fracture. No acute osseous abnormality.IMPRESSION:1. Slightly more prominent bibasilar airspace disease, right greater than left, likely atelectasis. However, developing infiltrate not entirely excluded. Continued attention on follow-up. Otherwise, no interval change.2. Stable lines and tubes as above. Final Dictated by: MD Sherlyn, ShastalyDictated DT/TM: 08/26/2019 7:37 amSigned by: MD Plata KimberlySigned (Electronic Signature): 08/26/2019 7:41 amPOC [id number] 07:08:04 Test Item Value Reference Range Interpretation Comments Glucose POC (test 90 mg/dL 70-115 If you con operator vacuum your code = Glucose POC) patient critically ill, the Sue-Accu Check Infrom II meter should not be used for Glucose determination. Draw a venous Glucose and send to the main Lab for analysis. Manual [id number] 06:30:35 Test Item Value Reference Range Interpretation Comments Segs Man (test code = Segs Man) 84.0 % 36.0-70.0 H Band Man (test code = Band Man) 4.0 % 0.0-6.0 Lymph Man (test code = Lymph 7.0 % 12.0-44.0 L Man) Monocyte Man (test code = 5.0 % 0.0-11.0 Monocyte Man) Eos Man (test code = Eos Man) 0.0 % 0.0-7.0 Basophil Man (test code = 0.0 0.0-2.0 Basophil Man) Neut Man Abs (test code = Neut 17.3 x10 1.6-7.4 H Man Abs) Lymph Man Abs (test code = Lymph 1.4 x10 0.5-4.6 Man Abs) Tyrrell Man Abs (test code = Tyrrell 1.0 x10 0.0-1.2 Man Abs) Eos Man Abs (test code = Eos Man 0.00 x10 0.00-0.74 Abs) Baso Man Abs (test code = Baso 0.00 x10 0.00-0.21 Man Abs) RBC Morph (test code = RBC As Indicated Normal A Morph) Anisocyte (test code = 1+ None Anisocyte) Macrocyte (test code = 1+ None Seen Macrocyte) Plt Estimation (test code = Plt Normal Normal Estimation) IG [id number] 06:30:34 Test Item Value Reference Range Interpretation Comments IG (test code = IG) 0.8 % 0.0-5.0 IG Abs (test code = IG Abs) 0 x10 N POC [id number] 06:15:09 Test Item Value Reference Range Interpretation Comments pH Art (test code = pH Art) 7.42 7.35-7.45 pH Temp Kristin Art (test code = pH 7.42 N Temp Kristin Art) pCO2 Art (test code = pCO2 Art) 39 mmHg 35-45 pCO2 Temp Kristin Art (test code = 39 mmHg N pCO2 Temp Kristin Art) pO2 Art (test code = pO2 Art) 87 mmHg 80-100 pO2 Temp Kristin Art (test code = 87 mmHg N pO2 Temp Kristin Art) ctHb Art (test code = ctHb Art) 12.2 g/dL 12.2-17.4 O2 Sat Art (test code = O2 Sat 97.8 % 80.0-100.0 Art) FO2Hb Art (test code = FO2Hb Art) 95.7 % 0.0-100.0 FCOHb Art (test code = FCOHb Art) 0.8 % 0.0-20.0 FMetHb Art (test code = FMetHb 1.3 % 0.0-20.0 Art) HCO3 Art (test code = HCO3 Art) 25.5 mmol/L 22.0-26.0 Hct Art (test code = Hct Art) 37 % 34-52 Na Art (test code = Na Art) 140 mmol/L 135-145 K Art (test code = K Art) 4.2 mmol/L 3.5-4.5 iCa Art (test code = iCa Art) 1.03 mmol/L 1.00-1.50 Cl Art (test code = Cl Art) 108 mmol/L 95-105 H Glu Art (test code = Glu Art) 87 mg/dL 75-115 Base Excess Arterial (test code = 1.1 N Base Excess Arterial) FiO2 Art (test code = FiO2 Art) 40 % N Lactate Art (test code = Lactate 1.1 mmol/L 0.5-2.2 Art) Draw Site (test code = Draw Site) Art line N Tidal Volume (test code = Tidal 0.50 N Volume) PEEP. (test code = PEEP.) 5.0 N Inspiratory Time. (test code = 0.9 N Inspiratory Time.) POC [id number] 06:10:40 Test Item Value Reference Range Interpretation Comments Glucose POC (test 86 mg/dL 70-115 If you con operator vacuum your code = Glucose POC) patient critically ill, the Sue-Accu Check Infrom II meter should not be used for Glucose determination. Draw a venous Glucose and send to the main Lab for analysis. Complete Blood Count with [id number] 05:39:18 Test Item Value Reference Range Interpretation Comments WBC (test code = WBC) 19.7 x10 4.4-10.5 H Result s called to and read back by: Solomon Black RN 08/03 05:38:51 CSTNo info givenDD RBC (test code = RBC) 3.49 x10 4.10-5.70 L Hgb (test code = Hgb) 12.1 g/dL 13.4-17.4 L Hct (test code = Hct) 35.2 % 38.7-52.0 L MCV (test code = MCV) 100.90 fL 80.00-100.00 H MCHC (test code = 34.40 g/dL 32.00-37.50 MCHC) MCH (test code = MCH) 34.7 pg 27.0-32.5 H RDW CV (test code = 14.7 % 11.5-14.5 H RDW CV) Platelets (test code = 141.0 x10 140.0-440.0 Platelets) MPV (test code = MPV) 9.9 fL N Slide Review (test Manual Auto A Result cr eated by code = Slide Review) GL_SJM_ SLIDE_REV_AUTO GL_SJM_XN_RFLX nRBC (test code = 0 N nRBC) NRBC Abs (test code = 0.00 x10 N NRBC Abs) Pos Diff XN (test code A N = Pos Diff XN) IPF (test code = IPF) 0 % N POC [id number] 05:16:07 Test Item Value Reference Range Interpretation Comments Glucose POC (test 89 mg/dL 70-115 If you con operator vacuum your code = Glucose POC) patient critically ill, the Sue-Accu Check Infrom II meter should not be used for Glucose determination. Draw a venous Glucose and send to the main Lab for analysis. Magnesium [id number] 04:57:19 Test Item Value Reference Range Interpretation Comments Magnesium Level (test code = 2.4 mg/dL 1.7-2.5 Magnesium Level) Phosphorus [id number] 04:57:19 Test Item Value Reference Range Interpretation Comments Phosphorus Level (test code = 3.20 mg/dL 2.70-4.50 Phosphorus Level) Comprehensive Metabolic [id number] 04:57:18 Test Item Value Reference Range Interpretation Comments Sodium Level (test code = Sodium 139.0 mmol/L 135.0-145.0 Level) Potassium Level (test code = 4.3 mmol/L 3.5-5.1 Potassium Level) Chloride Level (test code = 106 mmol/L 98-105 H Chloride Level) CO2 (test code = CO2) 22 mmol/L 22-29 Anion Gap (test code = Anion 11 mmol/L 7-16 Gap) BUN (test code = BUN) 22.60 mg/dL 8.00-23.00 Creatinine Level (test code = 1.50 mg/dL 0.70-1.20 H Creatinine Level) BUN/Creat Ratio (test code = 15 N BUN/Creat Ratio) Glucose Level (test code = 128 mg/dL 70-115 H Glucose Level) Calcium Level (test code = 7.4 mg/dL 8.3-10.5 L Calcium Level) Alk Phos (test code = Alk Phos) 49 U/L 40-129 Bilirubin Total (test code = 0.3 mg/dL 0.1-0.9 Bilirubin Total) Albumin Level (test code = 2.8 g/dL 3.5-5.2 L Albumin Level) Protein Total (test code = 4.6 g/dL 6.4-8.3 L Protein Total) ALT (test code = ALT) 25 U/L 1-41 AST (test code = AST) 112 U/L 1-40 H Globulin (test code = Globulin) 1.8 g/dL 2.9-3.1 L A/G Ratio (test code = A/G 1.6 ratio N Ratio) Comprehensive Metabolic [id number] 04:57:18 Test Item Value Reference Range Interpretation Comments Sodium Level (test 139.0 mmol/L 135.0-145.0 code = Sodium Level) Potassium Level 4.3 mmol/L 3.5-5.1 (test code = Potassium Level) Chloride Level (test 106 mmol/L 98-105 H code = Chloride Level) CO2 (test code = 22 mmol/L 22-29 CO2) Anion Gap (test code 11 mmol/L 7-16 = Anion Gap) BUN (test code = 22.60 mg/dL 8.00-23.00 BUN) Creatinine Level 1.50 mg/dL 0.70-1.20 H (test code = Creatinine Level) BUN/Creat Ratio 15 N (test code = BUN/Creat Ratio) Glucose Level (test 128 mg/dL 70-115 H code = Glucose Level) Calcium Level (test 7.4 mg/dL 8.3-10.5 L code = Calcium Level) Alk Phos (test code 49 U/L 40-129 = Alk Phos) Bilirubin Total 0.3 mg/dL 0.1-0.9 (test code = Bilirubin Total) Albumin Level (test 2.8 g/dL 3.5-5.2 L code = Albumin Level) Protein Total (test 4.6 g/dL 6.4-8.3 L code = Protein Total) ALT (test code = 25 U/L 1-41 ALT) AST (test code = 112 U/L 1-40 H AST) Globulin (test code 1.8 g/dL 2.9-3.1 L = Globulin) A/G Ratio (test code 1.6 ratio N = A/G Ratio) eGFR AA (test code = 55 mL/min/1.73 N eGFR (estimated eGFR AA) m2 Glomerular Filtration Rate ) is an estimated va lue, calculated from the patient's serum creatinine usin g the MDRD equation. It is NOT the patient 's actual GFR. The eGFR provides a more clinically usef ul measure of kidn ey disease than se rum creatinine alone.This calculation judith es sex and race in to account, if the information is provided. If th e race is not provided, and t he patient is -Precious n, multiply by 1.2 12. If sex is not provided, and t he patient is fema le, multiply by 0.7 42. Results for pat ients <18 years of ag e have not been validated by th e MDRD study and should be interpreted wit h caution. eGFR R esult Interpretation: eGFR > or = 60 is in the Normal RangeeGF R < 60 may mean kid galen diseaseeGFR < 1 5 may mean kidney failure Rang es recommended by the National Kidney Foundation, http://nkdep.ni h.gov Comprehensive Metabolic [id number] 04:57:18 Test Item Value Reference Range Interpretation Comments Sodium Level (test 139.0 mmol/L 135.0-145.0 code = Sodium Level) Potassium Level 4.3 mmol/L 3.5-5.1 (test code = Potassium Level) Chloride Level (test 106 mmol/L 98-105 H code = Chloride Level) CO2 (test code = 22 mmol/L 22-29 CO2) Anion Gap (test code 11 mmol/L 7-16 = Anion Gap) BUN (test code = 22.60 mg/dL 8.00-23.00 BUN) Creatinine Level 1.50 mg/dL 0.70-1.20 H (test code = Creatinine Level) BUN/Creat Ratio 15 N (test code = BUN/Creat Ratio) Glucose Level (test 128 mg/dL 70-115 H code = Glucose Level) Calcium Level (test 7.4 mg/dL 8.3-10.5 L code = Calcium Level) Alk Phos (test code 49 U/L 40-129 = Alk Phos) Bilirubin Total 0.3 mg/dL 0.1-0.9 (test code = Bilirubin Total) Albumin Level (test 2.8 g/dL 3.5-5.2 L code = Albumin Level) Protein Total (test 4.6 g/dL 6.4-8.3 L code = Protein Total) ALT (test code = 25 U/L 1-41 ALT) AST (test code = 112 U/L 1-40 H AST) Globulin (test code 1.8 g/dL 2.9-3.1 L = Globulin) A/G Ratio (test code 1.6 ratio N = A/G Ratio) eGFR AA (test code = 55 mL/min/1.73 N eGFR (estimated eGFR AA) m2 Glomerular Filtration Rate ) is an estimated va lue, calculated from the patient's serum creatinine usin g the MDRD equation. It is NOT the patient 's actual GFR. The eGFR provides a more clinically usef ul measure of kidn ey disease than se rum creatinine alone.This calculation judith es sex and race in to account, if the information is provided. If th e race is not provided, and t he patient is -Precious n, multiply by 1.2 12. If sex is not provided, and t he patient is fema le, multiply by 0.7 42. Results for pat ients <18 years of ag e have not been validated by th e MDRD study and should be interpreted wit h caution. eGFR R esult Interpretation: eGFR > or = 60 is in the Normal RangeeGF R < 60 may mean kid galen diseaseeGFR < 1 5 may mean kidney failure Rang es recommended by the National Kidney Foundation, http://nkdep.ni h.gov eGFR Non-AA (test 45.75 N eGFR (amalia mated code = eGFR Non-AA) mL/min/1.73 m2 Glomer ular Filtration Rate ) is an estimated va lue, calculated from the patient's serum creatinine usin g the MDRD equation. It is NOT the patient 's actual GFR. The eGFR provides a more clinically usef ul measure of kidn ey disease than se rum creatinine alone.This calculation judith es sex and race in to account, if the information is provided. If th e race is not provided, and t he patient is -Precious n, multiply by 1.2 12. If sex is not provided, and t he patient is fema le, multiply by 0.7 42. Results for pat ients <18 years of ag e have not been validated by th e MDRD study and should be interpreted wit h caution. eGFR R esult Interpretation: eGFR > or = 60 is in the Normal RangeeGF R < 60 may mean kid galen diseaseeGFR < 1 5 may mean kidney failure Rang es recommended by the National Kidney Foundation, http://nkdep.ni h.gov POC [id number] 03:57:36 Test Item Value Reference Range Interpretation Comments Glucose POC (test 118 mg/dL 70-115 H Notify RN or MDIf you code = Glucose POC) consider your patient critically ill, the Sue-Accu Chec k Infrom II meter should not be used for Glucos e determination. Draw a venous Glucose and send to the main Lab for analysis. POC [id number] 03:02:07 Test Item Value Reference Range Interpretation Comments Glucose POC (test 153 mg/dL 70-115 H Notify RN or MDIf you code = Glucose POC) consider your patient critically ill, the Sue-Accu Chec k Infrom II meter should not be used for Glucos e determination. Draw a venous Glucose and send to the main Lab for analysis. POC [id number] 01:58:40 Test Item Value Reference Range Interpretation Comments pH Art (test code = pH Art) 7.39 7.35-7.45 pH Temp Kristin Art (test code = pH 7.39 N Temp Kristin Art) pCO2 Art (test code = pCO2 Art) 38 mmHg 35-45 pCO2 Temp Kristin Art (test code = 38 mmHg N pCO2 Temp Kristin Art) pO2 Art (test code = pO2 Art) 176 mmHg 80-100 L pO2 Temp Kristin Art (test code = 176 mmHg N pO2 Temp Kristin Art) ctHb Art (test code = ctHb Art) 12.2 g/dL 12.2-17.4 O2 Sat Art (test code = O2 Sat 98.3 % 80.0-100.0 Art) FO2Hb Art (test code = FO2Hb Art) 96.9 % 0.0-100.0 FCOHb Art (test code = FCOHb Art) 0.0 % 0.0-20.0 FMetHb Art (test code = FMetHb 1.4 % 0.0-20.0 Art) HCO3 Art (test code = HCO3 Art) 23.4 mmol/L 22.0-26.0 Hct Art (test code = Hct Art) 37 % 34-52 Na Art (test code = Na Art) 140 mmol/L 135-145 K Art (test code = K Art) 3.8 mmol/L 3.5-4.5 iCa Art (test code = iCa Art) 1.05 mmol/L 1.00-1.50 Cl Art (test code = Cl Art) 108 mmol/L 95-105 H Glu Art (test code = Glu Art) 197 mg/dL 75-115 H Base Excess Arterial (test code = -1.4 N Base Excess Arterial) FiO2 Art (test code = FiO2 Art) 70 % N Lactate Art (test code = Lactate 3.6 mmol/L 0.5-2.2 H Art) Draw Site (test code = Draw Site) Art line N Tidal Volume (test code = Tidal 0.50 N Volume) PEEP. (test code = PEEP.) 5.0 N Inspiratory Time. (test code = 0.9 N Inspiratory Time.) POC [id number] 00:58:33 Test Item Value Reference Range Interpretation Comments Glucose POC (test 238 mg/dL 70-115 H Notify RN or MDIf you code = Glucose POC) consider your patient critically ill, the Sue-Accu Chec k Infrom II meter should not be used for Glucos e determination. Draw a venous Glucose and send to the main Lab for analysis. POC [id number] 00:10:05 Test Item Value Reference Range Interpretation Comments Glucose POC (test 256 mg/dL 70-115 H Notify RN or MDIf you code = Glucose POC) consider your patient critically ill, the Sue-Accu Chec k Infrom II meter should not be used for Glucos e determination. Draw a venous Glucose and send to the main Lab for analysis. IG [id number] 23:17:44 Test Item Value Reference Range Interpretation Comments IG (test code = IG) 0.9 % 0.0-5.0 IG Abs (test code = IG Abs) 0 x10 N Manual [id number] 23:17:44 Test Item Value Reference Range Interpretation Comments Segs Man (test code = Segs Man) 84.0 % 36.0-70.0 H Band Man (test code = Band Man) 7.0 % 0.0-6.0 H Lymph Man (test code = Lymph 5.0 % 12.0-44.0 L Man) Monocyte Man (test code = 4.0 % 0.0-11.0 Monocyte Man) Eos Man (test code = Eos Man) 0.0 % 0.0-7.0 Basophil Man (test code = 0.0 0.0-2.0 Basophil Man) Neut Man Abs (test code = Neut 30.5 x10 1.6-7.4 H Man Abs) Lymph Man Abs (test code = Lymph 1.7 x10 0.5-4.6 Man Abs) Tyrrell Man Abs (test code = Tyrrell 1.3 x10 0.0-1.2 H Man Abs) Eos Man Abs (test code = Eos Man 0.00 x10 0.00-0.74 Abs) Baso Man Abs (test code = Baso 0.00 x10 0.00-0.21 Man Abs) RBC Morph (test code = RBC As Indicated Normal A Morph) Macrocyte (test code = 1+ None Seen Macrocyte) Plt Estimation (test code = Plt Normal Normal Estimation) POC [id number] 23:12:02 Test Item Value Reference Range Interpretation Comments Glucose POC (test 277 mg/dL 70-115 H Notify RN or MDIf you code = Glucose POC) consider your patient critically ill, the Sue-Accu Chec k Infrom II meter should not be used for Glucos e determination. Draw a venous Glucose and send to the main Lab for analysis. POC [id number] 22:25:01 Test Item Value Reference Range Interpretation Comments pH Art (test code = pH Art) 7.31 7.35-7.45 L pH Temp Kristin Art (test code = pH 7.31 N Temp Kristin Art) pCO2 Art (test code = pCO2 Art) 35 mmHg 35-45 pCO2 Temp Kristin Art (test code = 36 mmHg N pCO2 Temp Kristin Art) pO2 Art (test code = pO2 Art) 92 mmHg 80-100 pO2 Temp Kristin Art (test code = 95 mmHg N pO2 Temp Kristin Art) ctHb Art (test code = ctHb Art) 13.7 g/dL 12.2-17.4 O2 Sat Art (test code = O2 Sat 97.1 % 80.0-100.0 Art) FO2Hb Art (test code = FO2Hb Art) 94.9 % 0.0-100.0 FCOHb Art (test code = FCOHb Art) 0.9 % 0.0-20.0 FMetHb Art (test code = FMetHb 1.4 % 0.0-20.0 Art) HCO3 Art (test code = HCO3 Art) 17.7 mmol/L 22.0-26.0 Hct Art (test code = Hct Art) 42 % 34-52 Na Art (test code = Na Art) 141 mmol/L 135-145 K Art (test code = K Art) 3.3 mmol/L 3.5-4.5 L iCa Art (test code = iCa Art) 1.05 mmol/L 1.00-1.50 Cl Art (test code = Cl Art) 108 mmol/L 95-105 H Glu Art (test code = Glu Art) 300 mg/dL 75-115 H Base Excess Arterial (test code = -7.7 N Base Excess Arterial) FiO2 Art (test code = FiO2 Art) 70 % N Lactate Art (test code = Lactate 10.3 mmol/L 0.5-2.2 L Art) Draw Site (test code = Draw Site) Art line N Tidal Volume (test code = Tidal 0.50 N Volume) PEEP. (test code = PEEP.) 5.0 N Inspiratory Time. (test code = 0.9 N Inspiratory Time.) POC [id number] 22:08:40 Test Item Value Reference Range Interpretation Comments Glucose POC (test 295 mg/dL 70-115 H Notify RN or MDIf you code = Glucose POC) consider your patient critically ill, the Sue-Accu Chec k Infrom II meter should not be used for Glucos e determination. Draw a venous Glucose and send to the main Lab for analysis. Fibrinogen [id number] 21:46:35 Test Item Value Reference Range Interpretation Comments Fibrinogen Level (test code = 408.0 mg/dL 188.5-473.8 Fibrinogen Level) Magnesium [id number] 21:40:45 Test Item Value Reference Range Interpretation Comments Magnesium Level (test code = 2.7 mg/dL 1.7-2.5 H Magnesium Level) Phosphorus [id number] 21:40:45 Test Item Value Reference Range Interpretation Comments Phosphorus Level (test code = 1.50 mg/dL 2.70-4.50 L Phosphorus Level) Comprehensive Metabolic [id number] 21:40:44 Test Item Value Reference Range Interpretation Comments Sodium Level (test code = Sodium 141.0 mmol/L 135.0-145.0 Level) Potassium Level (test code = 4.0 mmol/L 3.5-5.1 Potassium Level) Chloride Level (test code = 103 mmol/L 98-105 Chloride Level) CO2 (test code = CO2) 16 mmol/L 22-29 L Anion Gap (test code = Anion 22 mmol/L 7-16 H Gap) BUN (test code = BUN) 23.40 mg/dL 8.00-23.00 H Creatinine Level (test code = 1.60 mg/dL 0.70-1.20 H Creatinine Level) BUN/Creat Ratio (test code = 15 N BUN/Creat Ratio) Glucose Level (test code = 328 mg/dL 70-115 H Glucose Level) Calcium Level (test code = 7.8 mg/dL 8.3-10.5 L Calcium Level) Alk Phos (test code = Alk Phos) 68 U/L 40-129 Bilirubin Total (test code = 0.7 mg/dL 0.1-0.9 Bilirubin Total) Albumin Level (test code = 2.8 g/dL 3.5-5.2 L Albumin Level) Protein Total (test code = 5.0 g/dL 6.4-8.3 L Protein Total) ALT (test code = ALT) 27 U/L 1-41 AST (test code = AST) 74 U/L 1-40 H Globulin (test code = Globulin) 2.2 g/dL 2.9-3.1 L A/G Ratio (test code = A/G 1.3 ratio N Ratio) Comprehensive Metabolic [id number] 21:40:44 Test Item Value Reference Range Interpretation Comments Sodium Level (test 141.0 mmol/L 135.0-145.0 code = Sodium Level) Potassium Level 4.0 mmol/L 3.5-5.1 (test code = Potassium Level) Chloride Level (test 103 mmol/L 98-105 code = Chloride Level) CO2 (test code = 16 mmol/L 22-29 L CO2) Anion Gap (test code 22 mmol/L 7-16 H = Anion Gap) BUN (test code = 23.40 mg/dL 8.00-23.00 H BUN) Creatinine Level 1.60 mg/dL 0.70-1.20 H (test code = Creatinine Level) BUN/Creat Ratio 15 N (test code = BUN/Creat Ratio) Glucose Level (test 328 mg/dL 70-115 H code = Glucose Level) Calcium Level (test 7.8 mg/dL 8.3-10.5 L code = Calcium Level) Alk Phos (test code 68 U/L 40-129 = Alk Phos) Bilirubin Total 0.7 mg/dL 0.1-0.9 (test code = Bilirubin Total) Albumin Level (test 2.8 g/dL 3.5-5.2 L code = Albumin Level) Protein Total (test 5.0 g/dL 6.4-8.3 L code = Protein Total) ALT (test code = 27 U/L 1-41 ALT) AST (test code = 74 U/L 1-40 H AST) Globulin (test code 2.2 g/dL 2.9-3.1 L = Globulin) A/G Ratio (test code 1.3 ratio N = A/G Ratio) eGFR AA (test code = 51 mL/min/1.73 N eGFR (estimated eGFR AA) m2 Glomerular Filtration Rate ) is an estimated va lue, calculated from the patient's serum creatinine usin g the MDRD equation. It is NOT the patient 's actual GFR. The eGFR provides a more clinically usef ul measure of kidn ey disease than se rum creatinine alone.This calculation judith es sex and race in to account, if the information is provided. If th e race is not provided, and t he patient is -Precious n, multiply by 1.2 12. If sex is not provided, and t he patient is fema le, multiply by 0.7 42. Results for pat ients <18 years of ag e have not been validated by th e MDRD study and should be interpreted wit h caution. eGFR R esult Interpretation: eGFR > or = 60 is in the Normal RangeeGF R < 60 may mean kid galen diseaseeGFR < 1 5 may mean kidney failure Rang es recommended by the National Kidney Foundation, http://nkdep.ni h.gov Comprehensive Metabolic [id number] 21:40:44 Test Item Value Reference Range Interpretation Comments Sodium Level (test 141.0 mmol/L 135.0-145.0 code = Sodium Level) Potassium Level 4.0 mmol/L 3.5-5.1 (test code = Potassium Level) Chloride Level (test 103 mmol/L 98-105 code = Chloride Level) CO2 (test code = 16 mmol/L 22-29 L CO2) Anion Gap (test code 22 mmol/L 7-16 H = Anion Gap) BUN (test code = 23.40 mg/dL 8.00-23.00 H BUN) Creatinine Level 1.60 mg/dL 0.70-1.20 H (test code = Creatinine Level) BUN/Creat Ratio 15 N (test code = BUN/Creat Ratio) Glucose Level (test 328 mg/dL 70-115 H code = Glucose Level) Calcium Level (test 7.8 mg/dL 8.3-10.5 L code = Calcium Level) Alk Phos (test code 68 U/L 40-129 = Alk Phos) Bilirubin Total 0.7 mg/dL 0.1-0.9 (test code = Bilirubin Total) Albumin Level (test 2.8 g/dL 3.5-5.2 L code = Albumin Level) Protein Total (test 5.0 g/dL 6.4-8.3 L code = Protein Total) ALT (test code = 27 U/L 1-41 ALT) AST (test code = 74 U/L 1-40 H AST) Globulin (test code 2.2 g/dL 2.9-3.1 L = Globulin) A/G Ratio (test code 1.3 ratio N = A/G Ratio) eGFR AA (test code = 51 mL/min/1.73 N eGFR (estimated eGFR AA) m2 Glomerular Filtration Rate ) is an estimated va lue, calculated from the patient's serum creatinine usin g the MDRD equation. It is NOT the patient 's actual GFR. The eGFR provides a more clinically usef ul measure of kidn ey disease than se rum creatinine alone.This calculation judith es sex and race in to account, if the information is provided. If th e race is not provided, and t he patient is -Precious n, multiply by 1.2 12. If sex is not provided, and t he patient is fema le, multiply by 0.7 42. Results for pat ients <18 years of ag e have not been validated by [facility]D study and should be interpreted wit h caution. eGFR R esult Interpretation: eGFR > or = 60 is in the Normal RangeeGF R < 60 may mean kid galen diseaseeGFR < 1 5 may mean kidney failure Rang es recommended by the National Kidney Foundation, http://nkdep.ni h.gov eGFR Non-AA (test 42.46 N eGFR (amalia mated code = eGFR Non-AA) mL/min/1.73 m2 Glomer ular Filtration Rate ) is an estimated va lue, calculated from the patient's serum creatinine usin g the MDRD equation. It is NOT the patient 's actual GFR. The eGFR provides a more clinically usef ul measure of kidn ey disease than se rum creatinine alone.This calculation judith es sex and race in to account, if the information is provided. If th e race is not provided, and t he patient is -Precious n, multiply by 1.2 12. If sex is not provided, and t he patient is fema le, multiply by 0.7 42. Results for pat ients <18 years of ag e have not been validated by [facility] MDRD study and should be interpreted wit h caution. eGFR R esult Interpretation: eGFR > or = 60 is in the Normal RangeeGF R < 60 may mean kid galen diseaseeGFR < 1 5 may mean kidney failure Rang es recommended by the National Kidney Foundation, http://nkdep.ni h.gov POC [id number] 21:10:33 Test Item Value Reference Range Interpretation Comments Glucose POC (test 312 mg/dL 70-115 H Notify RN or MDIf you code = Glucose POC) consider your patient critically ill, the Sue-Accu Chec k Infrom II meter should not be used for Glucos e determination. Draw a venous Glucose and send to the main Lab for analysis. Prothrombin Time and [id number] 21:10:30 Test Item Value Reference Range Interpretation Comments Prothrombin Time (test code = 15.3 seconds 9.8-13.4 H Prothrombin Time) INR (test code = INR) 1.3 ratio 0.6-1.2 H Complete Blood Count with [id number] 21:01:45 Test Item Value Reference Range Interpretation Comments WBC (test code = WBC) 33.5 x10 4.4-10.5 H RBC (test code = RBC) 4.08 x10 4.10-5.70 L Hgb (test code = Hgb) 14.0 g/dL 13.4-17.4 MCV (test code = MCV) 105.60 fL 80.00-100.00 H Hct (test code = Hct) 43.1 % 38.7-52.0 MCHC (test code = 32.50 g/dL 32.00-37.50 MCHC) RDW CV (test code = 14.6 % 11.5-14.5 H RDW CV) MCH (test code = MCH) 34.3 pg 27.0-32.5 H Platelets (test code = 222.0 x10 140.0-440.0 Platelets) MPV (test code = MPV) 10.4 fL N Slide Review (test Manual Auto A Result cr eated by code = Slide Review) GL_SJM_ SLIDE_REV_AUTO GL_SJM_XN_RFLX nRBC (test code = 0 N nRBC) NRBC Abs (test code = 0.00 x10 N NRBC Abs) Pos Diff XN (test code A N = Pos Diff XN) Pos Morph XN (test A N code = Pos Morph XN) Pos Count XN (test A N code = Pos Count XN) IPF (test code = IPF) 0 % N POC [id number] 20:08:11 Test Item Value Reference Range Interpretation Comments Glucose POC (test 306 mg/dL 70-115 H Notify RN or MDIf you code = Glucose POC) consider your patient critically ill, the Sue-Accu Chec k Infrom II meter should not be used for Glucos e determination. Draw a venous Glucose and send to the main Lab for analysis. POC [id number] 19:17:03 Test Item Value Reference Range Interpretation Comments Glucose POC (test 298 mg/dL 70-115 H If you con operator vacuum your code = Glucose POC) patient critically ill, the Sue-Accu Check Infrom II meter should not be used for Glucose determination. Draw a venous Glucose and send to the main Lab for analysis. POC [id number] 18:21:31 Test Item Value Reference Range Interpretation Comments Glucose POC (test 236 mg/dL 70-115 H If you con operator vacuum your code = Glucose POC) patient critically ill, the Sue-Accu Check Infrom II meter should not be used for Glucose determination. Draw a venous Glucose and send to the main Lab for analysis. IG [id number] 17:11:43 Test Item Value Reference Range Interpretation Comments IG (test code = IG) 1.3 % 0.0-5.0 IG Abs (test code = IG Abs) 0 x10 N Manual [id number] 17:10:05 Test Item Value Reference Range Interpretation Comments Segs Man (test code = Segs Man) 79.0 % 36.0-70.0 H Band Man (test code = Band Man) 8.0 % 0.0-6.0 H Lymph Man (test code = Lymph 5.0 % 12.0-44.0 L Man) Monocyte Man (test code = 7.0 % 0.0-11.0 Monocyte Man) Eos Man (test code = Eos Man) 0.0 % 0.0-7.0 Basophil Man (test code = 0.0 0.0-2.0 Basophil Man) [place] Man (test code = [place] Man) 1 % 0-2 RBC Morph (test code = RBC As Indicated Normal A Morph) Anisocyte (test code = 1+ None Anisocyte) Plt Estimation (test code = Plt Normal Normal Estimation) Manual [id number] 17:10:05 Test Item Value Reference Range Interpretation Comments Segs Man (test code = Segs Man) 79.0 % 36.0-70.0 H Band Man (test code = Band Man) 8.0 % 0.0-6.0 H Lymph Man (test code = Lymph 5.0 % 12.0-44.0 L Man) Monocyte Man (test code = 7.0 % 0.0-11.0 Monocyte Man) Eos Man (test code = Eos Man) 0.0 % 0.0-7.0 Basophil Man (test code = 0.0 0.0-2.0 Basophil Man) [place] Man (test code = [place] Man) 1 % 0-2 Neut Man Abs (test code = Neut 31.2 x10 1.6-7.4 H Man Abs) Lymph Man Abs (test code = Lymph 1.8 x10 0.5-4.6 Man Abs) Tyrrell Man Abs (test code = Tyrrell 2.5 x10 0.0-1.2 H Man Abs) Eos Man Abs (test code = Eos Man 0.00 x10 0.00-0.74 Abs) Baso Man Abs (test code = Baso 0.00 x10 0.00-0.21 Man Abs) RBC Morph (test code = RBC As Indicated Normal A Morph) Anisocyte (test code = 1+ None Anisocyte) Plt Estimation (test code = Plt Normal Normal Estimation) POC [id number] 17:03:39 Test Item Value Reference Range Interpretation Comments Glucose POC (test 215 mg/dL 70-115 H If you con operator vacuum your code = Glucose POC) patient critically ill, the Sue-Accu Check Infrom II meter should not be used for Glucose determination. Draw a venous Glucose and send to the main Lab for analysis. Basic Metabolic [id number] 16:53:32 Test Item Value Reference Range Interpretation Comments Sodium Level (test code = Sodium 140.0 mmol/L 135.0-145.0 Level) Potassium Level (test code = 4.5 mmol/L 3.5-5.1 Potassium Level) Chloride Level (test code = 104 mmol/L 98-105 Chloride Level) CO2 (test code = CO2) 19 mmol/L 22-29 L Anion Gap (test code = Anion 17 mmol/L 7-16 H Gap) BUN (test code = BUN) 22.30 mg/dL 8.00-23.00 Creatinine Level (test code = 1.40 mg/dL 0.70-1.20 H Creatinine Level) BUN/Creat Ratio (test code = 16 N BUN/Creat Ratio) Glucose Level (test code = 304 mg/dL 70-115 H Glucose Level) Calcium Level (test code = 7.7 mg/dL 8.3-10.5 L Calcium Level) Basic Metabolic [id number] 16:53:32 Test Item Value Reference Range Interpretation Comments Sodium Level (test 140.0 mmol/L 135.0-145.0 code = Sodium Level) Potassium Level 4.5 mmol/L 3.5-5.1 (test code = Potassium Level) Chloride Level (test 104 mmol/L 98-105 code = Chloride Level) CO2 (test code = 19 mmol/L 22-29 L CO2) Anion Gap (test code 17 mmol/L 7-16 H = Anion Gap) BUN (test code = 22.30 mg/dL 8.00-23.00 BUN) Creatinine Level 1.40 mg/dL 0.70-1.20 H (test code = Creatinine Level) BUN/Creat Ratio 16 N (test code = BUN/Creat Ratio) Glucose Level (test 304 mg/dL 70-115 H code = Glucose Level) Calcium Level (test 7.7 mg/dL 8.3-10.5 L code = Calcium Level) eGFR AA (test code = 60 mL/min/1.73 N eGFR (estimated eGFR AA) m2 Glomerular Filtration Rate ) is an estimated va lue, calculated from the patient's serum creatinine usin g the MDRD equation. It is NOT the patient 's actual GFR. The eGFR provides a more clinically usef ul measure of kidn ey disease than se rum creatinine alone.This calculation judith es sex and race in to account, if the information is provided. If th e race is not provided, and t he patient is -Precious n, multiply by 1.2 12. If sex is not provided, and t he patient is fema le, multiply by 0.7 42. Results for pat ients <18 years of ag e have not been validated by th e MDRD study and should be interpreted wit h caution. eGFR R esult Interpretation: eGFR > or = 60 is in the Normal RangeeGF R < 60 may mean kid galen diseaseeGFR < 1 5 may mean kidney failure Rang es recommended by the National Kidney Foundation, http://nkdep.ni h.gov Basic Metabolic [id number] 16:53:32 Test Item Value Reference Range Interpretation Comments Sodium Level (test 140.0 mmol/L 135.0-145.0 code = Sodium Level) Potassium Level 4.5 mmol/L 3.5-5.1 (test code = Potassium Level) Chloride Level (test 104 mmol/L 98-105 code = Chloride Level) CO2 (test code = 19 mmol/L 22-29 L CO2) Anion Gap (test code 17 mmol/L 7-16 H = Anion Gap) BUN (test code = 22.30 mg/dL 8.00-23.00 BUN) Creatinine Level 1.40 mg/dL 0.70-1.20 H (test code = Creatinine Level) BUN/Creat Ratio 16 N (test code = BUN/Creat Ratio) Glucose Level (test 304 mg/dL 70-115 H code = Glucose Level) Calcium Level (test 7.7 mg/dL 8.3-10.5 L code = Calcium Level) eGFR AA (test code = 60 mL/min/1.73 N eGFR (estimated eGFR AA) m2 Glomerular Filtration Rate ) is an estimated va lue, calculated from the patient's serum creatinine usin g the MDRD equation. It is NOT the patient 's actual GFR. The eGFR provides a more clinically usef ul measure of kidn ey disease than se rum creatinine alone.This calculation judith es sex and race in to account, if the information is provided. If th e race is not provided, and t he patient is -Precious n, multiply by 1.2 12. If sex is not provided, and t he patient is fema le, multiply by 0.7 42. Results for pat ients <18 years of ag e have not been validated by th e MDRD study and should be interpreted wit h caution. eGFR R esult Interpretation: eGFR > or = 60 is in the Normal RangeeGF R < 60 may mean kid galen diseaseeGFR < 1 5 may mean kidney failure Rang es recommended by the National Kidney Foundation, http://nkdep.ni h.gov eGFR Non-AA (test 49.54 N eGFR (amalia mated code = eGFR Non-AA) mL/min/1.73 m2 Glomer ular Filtration Rate ) is an estimated va lue, calculated from the patient's serum creatinine usin g the MDRD equation. It is NOT the patient 's actual GFR. The eGFR provides a more clinically usef ul measure of kidn ey disease than se rum creatinine alone.This calculation judith es sex and race in to account, if the information is provided. If th e race is not provided, and t he patient is -Precious n, multiply by 1.2 12. If sex is not provided, and t he patient is fema le, multiply by 0.7 42. Results for pat ients <18 years of ag e have not been validated by th e MDRD study and should be interpreted wit h caution. eGFR R esult Interpretation: eGFR > or = 60 is in the Normal RangeeGF R < 60 may mean kid galen diseaseeGFR < 1 5 may mean kidney failure Rang es recommended by the National Kidney Foundation, http://nkdep.ni h.gov Prothrombin Time and [id number] 16:50:16 Test Item Value Reference Range Interpretation Comments Prothrombin Time 15.5 seconds 9.8-13.4 H post surger y/ post (test code = transfusion Prothrombin Time) INR (test code = INR) 1.3 ratio 0.6-1.2 H XR Chest 1 View [id number] 16:49:22Patient: GRETEL SULTANA Date/Time08/25/2019 16:44 CSTReason for Exams/p cabg;Other (please specify)ReportLocation code: R 16Chest 1 viewIndication:Other (please specify);s/p cabg.Comparison: noneFindings:Cardiomegaly. Sternal retention wires. Mediastinal surgical clips. Oral endotracheal tube extends level of the aortic arch. Mediastinal drainage tubes. Left chest tube. Galt-Su catheter extends into the main pulmonary artery. Right jugularcentral venous catheter extends to the atriocaval junction.No pleural effusion. No pneumothorax. Atelectasis in the right lower lung field.No pneumothorax.IMPRESSION:1. Postthoracotomy.2. Atelectasis at the right base.3. Device positions appear appropriate as above. Final Dictated by: MD Barrios Daniel RDictated DT/TM: 08/25/2019 4:45 pmSigned by: MD Barrios Daniel RSigned (Electronic Signature): 08/25/2019 4:49 pmComplete Blood Count with [id number] 16:45:29 Test Item Value Reference Range Interpretation Comments WBC (test code = WBC) 35.4 x10 4.4-10.5 H called to Jose Luis Briones 16:45:08 ORDER DISPATCHER CHIEF po st surgery RBC (test code = RBC) 4.06 x10 4.10-5.70 L Hgb (test code = Hgb) 14.1 g/dL 13.4-17.4 Hct (test code = Hct) 41.6 % 38.7-52.0 MCV (test code = MCV) 102.50 fL 80.00-100.00 H MCHC (test code = 33.90 g/dL 32.00-37.50 MCHC) MCH (test code = MCH) 34.7 pg 27.0-32.5 H RDW CV (test code = 14.4 % 11.5-14.5 RDW CV) Platelets (test code = 216.0 x10 140.0-440.0 Platelets) MPV (test code = MPV) 10.1 fL N Slide Review (test Manual Auto A Result cr eated by code = Slide Review) GL_SJM_ SLIDE_REV_AUTO GL_SJM_XN_RFLX nRBC (test code = 0 N nRBC) NRBC Abs (test code = 0.00 x10 N NRBC Abs) Pos Diff XN (test code A N = Pos Diff XN) Pos Count XN (test A N code = Pos Count XN) IPF (test code = IPF) 0 % N POC [id number] 16:33:09 Test Item Value Reference Range Interpretation Comments pH Art (test code = pH Art) 7.22 7.35-7.45 L pH Temp Kristin Art (test code = pH 7.22 N Temp Kristin Art) pCO2 Art (test code = pCO2 Art) 48 mmHg 35-45 H pCO2 Temp Kristin Art (test code = 48 mmHg N pCO2 Temp Kristin Art) pO2 Art (test code = pO2 Art) 60 mmHg 80-100 L pO2 Temp Kristin Art (test code = 60 mmHg N pO2 Temp Kristin Art) ctHb Art (test code = ctHb Art) 14.2 g/dL 12.2-17.4 O2 Sat Art (test code = O2 Sat 87.0 % 80.0-100.0 Art) FO2Hb Art (test code = FO2Hb Art) 84.7 % 0.0-100.0 FCOHb Art (test code = FCOHb Art) 1.1 % 0.0-20.0 FMetHb Art (test code = FMetHb 1.5 % 0.0-20.0 Art) HCO3 Art (test code = HCO3 Art) 19.8 mmol/L 22.0-26.0 Hct Art (test code = Hct Art) 44 % 34-52 Na Art (test code = Na Art) 140 mmol/L 135-145 K Art (test code = K Art) 4.4 mmol/L 3.5-4.5 iCa Art (test code = iCa Art) 1.04 mmol/L 1.00-1.50 Cl Art (test code = Cl Art) 107 mmol/L 95-105 H Glu Art (test code = Glu Art) 297 mg/dL 75-115 H Base Excess Arterial (test code = -7.9 N Base Excess Arterial) FiO2 Art (test code = FiO2 Art) 50 % N Lactate Art (test code = Lactate 6.1 mmol/L 0.5-2.2 L Art) Draw Site (test code = Draw Site) Art line N Tidal Volume (test code = Tidal 0.50 N Volume) PEEP. (test code = PEEP.) 5.0 N Inspiratory Time. (test code = 1.1 N Inspiratory Time.) POC [id number] 16:31:26 Test Item Value Reference Range Interpretation Comments Draw Site (test code = Draw Site) Other N Tidal Volume (test code = Tidal Volume) 0.50 N PEEP. (test code = PEEP.) 5.0 N Inspiratory Time. (test code = 1.1 N Inspiratory Time.) POC Activated Clotting [id number] 16:22:43 Test Item Value Reference Range Interpretation Comments ACT (test code 103 seconds N Vascular case s: 200-350 = ACT) secondsOff pump CABGs: 300-450 seconds Normal: Less than 150 second sACT+ Ranges: Presure ry and Heparin: <160 s econds O.R. Bypass on pump: >450 secondsReportab le ranges by cuvettes for lo w range cuvette: <65 % >400 secondsReportab le ranges by cuvettes for hi gh range cuvette: <67 & >1005 seconds POC [employer] [id number] 16:22:04 Test Item Value Reference Range Interpretation Comments ACT (test code 401 seconds N Vascular case s: 200-350 = ACT) secondsOff pump CABGs: 300-450 seconds Normal: Less than 150 second sACT+ Ranges: Presure ry and Heparin: <160 s econds O.R. Bypass on pump: >450 secondsReportab le ranges by cuvettes for lo w range cuvette: <65 % >400 secondsReportab le ranges by cuvettes for hi gh range cuvette: <67 & >1005 seconds POC [employer] [id number] 16:21:21 Test Item Value Reference Range Interpretation Comments ACT (test code 1400 seconds N Vascular case s: 200-350 = ACT) secondsOff pump CABGs: 300-450 seconds Normal: Less than 150 second sACT+ Ranges: Presure ry and Heparin: <160 s econds O.R. Bypass on pump: >450 secondsReportab le ranges by cuvettes for lo w range cuvette: <65 % >400 secondsReportab le ranges by cuvettes for hi gh range cuvette: <67 & >1005 seconds POC [employer] [id number] 16:21:04 Test Item Value Reference Range Interpretation Comments ACT (test code 434 seconds N Vascular case s: 200-350 = ACT) secondsOff pump CABGs: 300-450 seconds Normal: Less than 150 second sACT+ Ranges: Presure ry and Heparin: <160 s econds O.R. Bypass on pump: >450 secondsReportab le ranges by cuvettes for lo w range cuvette: <65 % >400 secondsReportab le ranges by cuvettes for hi gh range cuvette: <67 & >1005 seconds POC [employer] [id number] 16:20:48 Test Item Value Reference Range Interpretation Comments ACT (test code 387 seconds N Vascular case s: 200-350 = ACT) secondsOff pump CABGs: 300-450 seconds Normal: Less than 150 second sACT+ Ranges: Presure ry and Heparin: <160 s econds O.R. Bypass on pump: >450 secondsReportab le ranges by cuvettes for lo w range cuvette: <65 % >400 secondsReportab le ranges by cuvettes for hi gh range cuvette: <67 & >1005 seconds POC [employer] [id number] 16:20:32 Test Item Value Reference Range Interpretation Comments ACT (test code 445 seconds N Vascular case s: 200-350 = ACT) secondsOff pump CABGs: 300-450 seconds Normal: Less than 150 second sACT+ Ranges: Presure ry and Heparin: <160 s econds O.R. Bypass on pump: >450 secondsReportab le ranges by cuvettes for lo w range cuvette: <65 % >400 secondsReportab le ranges by cuvettes for hi gh range cuvette: <67 & >1005 seconds POC [employer] [id number] 16:19:52 Test Item Value Reference Range Interpretation Comments ACT (test code 510 seconds N Vascular case s: 200-350 = ACT) secondsOff pump CABGs: 300-450 seconds Normal: Less than 150 second sACT+ Ranges: Presure ry and Heparin: <160 s econds O.R. Bypass on pump: >450 secondsReportab le ranges by cuvettes for lo w range cuvette: <65 % >400 secondsReportab le ranges by cuvettes for hi gh range cuvette: <67 & >1005 seconds POC [employer] [id number] 15:59:33 Test Item Value Reference Range Interpretation Comments ACT (test code 500 seconds N Vascular case s: 200-350 = ACT) secondsOff pump CABGs: 300-450 seconds Normal: Less than 150 second sACT+ Ranges: Presure ry and Heparin: <160 s econds O.R. Bypass on pump: >450 secondsReportab le ranges by cuvettes for lo w range cuvette: <65 % >400 secondsReportab le ranges by cuvettes for hi gh range cuvette: <67 & >1005 seconds POC [employer] [id number] 15:50:51 Test Item Value Reference Range Interpretation Comments ACT (test code 107 seconds N Vascular case s: 200-350 = ACT) secondsOff pump CABGs: 300-450 seconds Normal: Less than 150 second sACT+ Ranges: Presure ry and Heparin: <160 s econds O.R. Bypass on pump: >450 secondsReportab le ranges by cuvettes for lo w range cuvette: <65 % >400 secondsReportab le ranges by cuvettes for hi gh range cuvette: <67 & >1005 seconds POC [id number] 15:17:33 Test Item Value Reference Range Interpretation Comments pH Art (test code = pH Art) 7.26 7.35-7.45 L pH Temp Kristin Art (test code = pH 7.26 N Temp Kristin Art) pCO2 Art (test code = pCO2 Art) 45 mmHg 35-45 pCO2 Temp Kristin Art (test code = 45 mmHg N pCO2 Temp Kristin Art) pO2 Art (test code = pO2 Art) 113 mmHg 80-100 L pO2 Temp Kristin Art (test code = 113 mmHg N pO2 Temp Kristin Art) ctHb Art (test code = ctHb Art) 11.4 g/dL 12.2-17.4 L O2 Sat Art (test code = O2 Sat 97.9 % 80.0-100.0 Art) FO2Hb Art (test code = FO2Hb Art) 95.7 % 0.0-100.0 FCOHb Art (test code = FCOHb Art) 1.7 % 0.0-20.0 FMetHb Art (test code = FMetHb 0.5 % 0.0-20.0 Art) HCO3 Art (test code = HCO3 Art) 20.1 mmol/L 22.0-26.0 Hct Art (test code = Hct Art) 35 % 34-52 Na Art (test code = Na Art) 140 mmol/L 135-145 K Art (test code = K Art) 4.1 mmol/L 3.5-4.5 iCa Art (test code = iCa Art) 1.06 mmol/L 1.00-1.50 Cl Art (test code = Cl Art) 107 mmol/L 95-105 H Glu Art (test code = Glu Art) 302 mg/dL 75-115 H Base Excess Arterial (test code = -6.7 N Base Excess Arterial) FiO2 Art (test code = FiO2 Art) 100 % N Lactate Art (test code = Lactate 5.6 mmol/L 0.5-2.2 L Art) Draw Site (test code = Draw Site) Art line N POC [id number] 14:10:56 Test Item Value Reference Range Interpretation Comments pH Art (test code = pH Art) 7.40 7.35-7.45 pH Temp Kristin Art (test code = pH 7.40 N Temp Kristin Art) pCO2 Art (test code = pCO2 Art) 37 mmHg 35-45 pCO2 Temp Kristin Art (test code = 37 mmHg N pCO2 Temp Kristin Art) pO2 Art (test code = pO2 Art) 417 mmHg 80-100 L pO2 Temp Kristin Art (test code = 417 mmHg N pO2 Temp Kristin Art) ctHb Art (test code = ctHb Art) 9.7 g/dL 12.2-17.4 L O2 Sat Art (test code = O2 Sat 99.9 % 80.0-100.0 Art) FO2Hb Art (test code = FO2Hb Art) 97.2 % 0.0-100.0 FCOHb Art (test code = FCOHb Art) 1.4 % 0.0-20.0 FMetHb Art (test code = FMetHb 1.3 % 0.0-20.0 Art) HCO3 Art (test code = HCO3 Art) 22.9 mmol/L 22.0-26.0 Hct Art (test code = Hct Art) 30 % 34-52 L Na Art (test code = Na Art) 139 mmol/L 135-145 K Art (test code = K Art) 4.2 mmol/L 3.5-4.5 iCa Art (test code = iCa Art) 0.91 mmol/L 1.00-1.50 L Cl Art (test code = Cl Art) 103 mmol/L 95-105 Glu Art (test code = Glu Art) 292 mg/dL 75-115 H Base Excess Arterial (test code = -1.6 N Base Excess Arterial) FiO2 Art (test code = FiO2 Art) 100 % N Lactate Art (test code = Lactate 5.3 mmol/L 0.5-2.2 L Art) Draw Site (test code = Draw Site) Art line N POC [id number] 14:06:50 Test Item Value Reference Range Interpretation Comments pH Art (test code = pH Art) 7.40 7.35-7.45 pH Temp Kristin Art (test code = pH 7.40 N Temp Kristin Art) pCO2 Art (test code = pCO2 Art) 37 mmHg 35-45 pCO2 Temp Kristin Art (test code = 37 mmHg N pCO2 Temp Kristin Art) pO2 Art (test code = pO2 Art) 431 mmHg 80-100 L pO2 Temp Kristin Art (test code = 431 mmHg N pO2 Temp Kristin Art) ctHb Art (test code = ctHb Art) 10.5 g/dL 12.2-17.4 L O2 Sat Art (test code = O2 Sat 100.1 % 80.0-100.0 H Art) FO2Hb Art (test code = FO2Hb Art) 97.2 % 0.0-100.0 FCOHb Art (test code = FCOHb Art) 1.0 % 0.0-20.0 FMetHb Art (test code = FMetHb 1.9 % 0.0-20.0 Art) HCO3 Art (test code = HCO3 Art) 23.0 mmol/L 22.0-26.0 Hct Art (test code = Hct Art) 32 % 34-52 L Na Art (test code = Na Art) 139 mmol/L 135-145 K Art (test code = K Art) 4.2 mmol/L 3.5-4.5 iCa Art (test code = iCa Art) 0.91 mmol/L 1.00-1.50 L Cl Art (test code = Cl Art) 103 mmol/L 95-105 Glu Art (test code = Glu Art) 290 mg/dL 75-115 H Base Excess Arterial (test code = -1.5 N Base Excess Arterial) FiO2 Art (test code = FiO2 Art) 100 % N Lactate Art (test code = Lactate 5.0 mmol/L 0.5-2.2 L Art) Draw Site (test code = Draw Site) Art line N POC [id number] 13:36:05 Test Item Value Reference Range Interpretation Comments pH Art (test code = pH Art) 7.37 7.35-7.45 pH Temp Kristin Art (test code = pH 7.37 N Temp Kristin Art) pCO2 Art (test code = pCO2 Art) 34 mmHg 35-45 L pCO2 Temp Kristin Art (test code = 34 mmHg N pCO2 Temp Kristin Art) pO2 Art (test code = pO2 Art) 444 mmHg 80-100 L pO2 Temp Kristin Art (test code = 444 mmHg N pO2 Temp Kristin Art) ctHb Art (test code = ctHb Art) 10.3 g/dL 12.2-17.4 L O2 Sat Art (test code = O2 Sat 100.1 % 80.0-100.0 H Art) FO2Hb Art (test code = FO2Hb Art) 97.2 % 0.0-100.0 FCOHb Art (test code = FCOHb Art) 1.0 % 0.0-20.0 FMetHb Art (test code = FMetHb 1.9 % 0.0-20.0 Art) HCO3 Art (test code = HCO3 Art) 19.7 mmol/L 22.0-26.0 L Hct Art (test code = Hct Art) 32 % 34-52 L Na Art (test code = Na Art) 136 mmol/L 135-145 K Art (test code = K Art) 4.6 mmol/L 3.5-4.5 H iCa Art (test code = iCa Art) 0.95 mmol/L 1.00-1.50 L Cl Art (test code = Cl Art) 103 mmol/L 95-105 Glu Art (test code = Glu Art) 282 mg/dL 75-115 H Base Excess Arterial (test code = -5.0 N Base Excess Arterial) FiO2 Art (test code = FiO2 Art) 100 % N Lactate Art (test code = Lactate 4.0 mmol/L 0.5-2.2 H Art) Draw Site (test code = Draw Site) Art line N POC [id number] 13:10:21 Test Item Value Reference Range Interpretation Comments pH Art (test code = pH Art) 7.34 7.35-7.45 L pH Temp Kristin Art (test code = pH 7.34 N Temp Kristin Art) pCO2 Art (test code = pCO2 Art) 40 mmHg 35-45 pCO2 Temp Kristin Art (test code = 40 mmHg N pCO2 Temp Kristin Art) pO2 Art (test code = pO2 Art) 446 mmHg 80-100 L pO2 Temp Kristin Art (test code = 446 mmHg N pO2 Temp Kristin Art) ctHb Art (test code = ctHb Art) 9.7 g/dL 12.2-17.4 L O2 Sat Art (test code = O2 Sat 100.2 % 80.0-100.0 H Art) FO2Hb Art (test code = FO2Hb Art) 97.3 % 0.0-100.0 FCOHb Art (test code = FCOHb Art) 1.0 % 0.0-20.0 FMetHb Art (test code = FMetHb 1.9 % 0.0-20.0 Art) HCO3 Art (test code = HCO3 Art) 21.6 mmol/L 22.0-26.0 L Hct Art (test code = Hct Art) 30 % 34-52 L Na Art (test code = Na Art) 136 mmol/L 135-145 K Art (test code = K Art) 4.5 mmol/L 3.5-4.5 iCa Art (test code = iCa Art) 0.94 mmol/L 1.00-1.50 L Cl Art (test code = Cl Art) 102 mmol/L 95-105 Glu Art (test code = Glu Art) 267 mg/dL 75-115 H Base Excess Arterial (test code = -3.8 N Base Excess Arterial) FiO2 Art (test code = FiO2 Art) 100 % N Lactate Art (test code = Lactate 3.8 mmol/L 0.5-2.2 H Art) Draw Site (test code = Draw Site) Art line N POC [id number] 12:38:00 Test Item Value Reference Range Interpretation Comments pH Art (test code = pH Art) 7.36 7.35-7.45 pH Temp Kristin Art (test code = pH 7.36 N Temp Kristin Art) pCO2 Art (test code = pCO2 Art) 35 mmHg 35-45 pCO2 Temp Kristin Art (test code = 35 mmHg N pCO2 Temp Kristin Art) pO2 Art (test code = pO2 Art) 395 mmHg 80-100 L pO2 Temp Kristin Art (test code = 395 mmHg N pO2 Temp Kristin Art) ctHb Art (test code = ctHb Art) 9.3 g/dL 12.2-17.4 L O2 Sat Art (test code = O2 Sat 100.2 % 80.0-100.0 H Art) FO2Hb Art (test code = FO2Hb Art) 97.4 % 0.0-100.0 FCOHb Art (test code = FCOHb Art) 1.0 % 0.0-20.0 FMetHb Art (test code = FMetHb 1.8 % 0.0-20.0 Art) HCO3 Art (test code = HCO3 Art) 19.7 mmol/L 22.0-26.0 L Hct Art (test code = Hct Art) 29 % 34-52 L Na Art (test code = Na Art) 134 mmol/L 135-145 L K Art (test code = K Art) 4.3 mmol/L 3.5-4.5 iCa Art (test code = iCa Art) 0.93 mmol/L 1.00-1.50 L Cl Art (test code = Cl Art) 104 mmol/L 95-105 Glu Art (test code = Glu Art) 243 mg/dL 75-115 H Base Excess Arterial (test code = -5.2 N Base Excess Arterial) FiO2 Art (test code = FiO2 Art) 100 % N Lactate Art (test code = Lactate 3.1 mmol/L 0.5-2.2 H Art) Draw Site (test code = Draw Site) Art line N POC [id number] 12:09:05 Test Item Value Reference Range Interpretation Comments pH Art (test code = pH Art) 7.38 7.35-7.45 pH Temp Kristin Art (test code = pH 7.38 N Temp Kristin Art) pCO2 Art (test code = pCO2 Art) 36 mmHg 35-45 pCO2 Temp Kristin Art (test code = 36 mmHg N pCO2 Temp Kristin Art) pO2 Art (test code = pO2 Art) 407 mmHg 80-100 L pO2 Temp Kristin Art (test code = 407 mmHg N pO2 Temp Kristin Art) ctHb Art (test code = ctHb Art) 9.8 g/dL 12.2-17.4 L O2 Sat Art (test code = O2 Sat 100.2 % 80.0-100.0 H Art) FO2Hb Art (test code = FO2Hb Art) 97.5 % 0.0-100.0 FCOHb Art (test code = FCOHb Art) 1.0 % 0.0-20.0 FMetHb Art (test code = FMetHb 1.7 % 0.0-20.0 Art) HCO3 Art (test code = HCO3 Art) 21.4 mmol/L 22.0-26.0 L Hct Art (test code = Hct Art) 30 % 34-52 L Na Art (test code = Na Art) 134 mmol/L 135-145 L K Art (test code = K Art) 4.3 mmol/L 3.5-4.5 iCa Art (test code = iCa Art) 0.92 mmol/L 1.00-1.50 L Cl Art (test code = Cl Art) 103 mmol/L 95-105 Glu Art (test code = Glu Art) 212 mg/dL 75-115 H Base Excess Arterial (test code = -3.3 N Base Excess Arterial) FiO2 Art (test code = FiO2 Art) 100 % N Lactate Art (test code = Lactate 2.2 mmol/L 0.5-2.2 Art) Draw Site (test code = Draw Site) Art line N POC [id number] 11:40:43 Test Item Value Reference Range Interpretation Comments pH Art (test code = pH Art) 7.36 7.35-7.45 pH Temp Kristin Art (test code = pH 7.36 N Temp Kristin Art) pCO2 Art (test code = pCO2 Art) 43 mmHg 35-45 pCO2 Temp Kristin Art (test code = 43 mmHg N pCO2 Temp Kristin Art) pO2 Art (test code = pO2 Art) 532 mmHg 80-100 L pO2 Temp Kristin Art (test code = 532 mmHg N pO2 Temp Kristin Art) ctHb Art (test code = ctHb Art) 8.2 g/dL 12.2-17.4 L O2 Sat Art (test code = O2 Sat 100.2 % 80.0-100.0 H Art) FO2Hb Art (test code = FO2Hb Art) 97.5 % 0.0-100.0 FCOHb Art (test code = FCOHb Art) 1.0 % 0.0-20.0 FMetHb Art (test code = FMetHb 1.7 % 0.0-20.0 Art) HCO3 Art (test code = HCO3 Art) 23.8 mmol/L 22.0-26.0 Hct Art (test code = Hct Art) 25 % 34-52 L Na Art (test code = Na Art) 131 mmol/L 135-145 L K Art (test code = K Art) 5.8 mmol/L 3.5-4.5 H iCa Art (test code = iCa Art) 0.89 mmol/L 1.00-1.50 L Cl Art (test code = Cl Art) 101 mmol/L 95-105 Glu Art (test code = Glu Art) 169 mg/dL 75-115 H Base Excess Arterial (test code = -1.6 N Base Excess Arterial) FiO2 Art (test code = FiO2 Art) 100 % N Lactate Art (test code = Lactate 1.2 mmol/L 0.5-2.2 Art) Draw Site (test code = Draw Site) Art line N POC [id number] 08:36:59 Test Item Value Reference Range Interpretation Comments pH Art (test code = pH Art) 7.43 7.35-7.45 pH Temp Kristin Art (test code = pH 7.43 N Temp Kristin Art) pCO2 Art (test code = pCO2 Art) 34 mmHg 35-45 L pCO2 Temp Kristin Art (test code = 34 mmHg N pCO2 Temp Kristin Art) pO2 Art (test code = pO2 Art) 487 mmHg 80-100 L pO2 Temp Kristin Art (test code = 487 mmHg N pO2 Temp Kristin Art) ctHb Art (test code = ctHb Art) 15.2 g/dL 12.2-17.4 O2 Sat Art (test code = O2 Sat 100.1 % 80.0-100.0 H Art) FO2Hb Art (test code = FO2Hb Art) 97.7 % 0.0-100.0 FCOHb Art (test code = FCOHb Art) 1.0 % 0.0-20.0 FMetHb Art (test code = FMetHb 1.4 % 0.0-20.0 Art) HCO3 Art (test code = HCO3 Art) 22.7 mmol/L 22.0-26.0 Hct Art (test code = Hct Art) 46 % 34-52 Na Art (test code = Na Art) 134 mmol/L 135-145 L K Art (test code = K Art) 4.7 mmol/L 3.5-4.5 H iCa Art (test code = iCa Art) 1.17 mmol/L 1.00-1.50 Cl Art (test code = Cl Art) 104 mmol/L 95-105 Glu Art (test code = Glu Art) 109 mg/dL 75-115 Base Excess Arterial (test code = -0.9 N Base Excess Arterial) FiO2 Art (test code = FiO2 Art) 21 % N Lactate Art (test code = Lactate 0.7 mmol/L 0.5-2.2 Art) Draw Site (test code = Draw Site) Art line N Red Blood Cells [id number] 08:02:13 Test Item Value Reference Range Interpretation Comments # of Units (test code 2 N = # of Units) RBC Trn Reason (test Surgery N code = RBC Trn Reason) RBC Product Ready RBC Ready >> 08:01:00 (test code = RBC ALFONSYA Notified Product Ready) Harini / 2 RCB ready ABORh [id number] 07:52:11 Test Item Value Reference Range Interpretation Comments Methodology (test code = Test-Tube(TT) Methodology) Anti-A (test code = Anti-A) 0 Anti-B (test code = Anti-B) 0 Anti-AB (test code = Anti-AB) NT Anti-D (test code = Anti-D) 4+ ABORh Retype (test code = ABORh O POS Retype) Comprehensive Metabolic [id number] 07:21:29 Test Item Value Reference Range Interpretation Comments Sodium Level (test code = Sodium 135.0 mmol/L 135.0-145.0 Level) Potassium Level (test code = 4.6 mmol/L 3.5-5.1 Potassium Level) Chloride Level (test code = 98 mmol/L 98-105 Chloride Level) CO2 (test code = CO2) 24 mmol/L 22-29 Anion Gap (test code = Anion 13 mmol/L 7-16 Gap) BUN (test code = BUN) 23.60 mg/dL 8.00-23.00 H Creatinine Level (test code = 1.50 mg/dL 0.70-1.20 H Creatinine Level) BUN/Creat Ratio (test code = 16 N BUN/Creat Ratio) Glucose Level (test code = 99 mg/dL 70-115 Glucose Level) Calcium Level (test code = 9.2 mg/dL 8.3-10.5 Calcium Level) Alk Phos (test code = Alk Phos) 93 U/L 40-129 Bilirubin Total (test code = 0.5 mg/dL 0.1-0.9 Bilirubin Total) Albumin Level (test code = 3.9 g/dL 3.5-5.2 Albumin Level) Protein Total (test code = 6.7 g/dL 6.4-8.3 Protein Total) ALT (test code = ALT) 24 U/L 1-41 AST (test code = AST) 24 U/L 1-40 Globulin (test code = Globulin) 2.8 g/dL 2.9-3.1 L A/G Ratio (test code = A/G 1.4 ratio N Ratio) Comprehensive Metabolic [id number] 07:21:29 Test Item Value Reference Range Interpretation Comments Sodium Level (test 135.0 mmol/L 135.0-145.0 code = Sodium Level) Potassium Level 4.6 mmol/L 3.5-5.1 (test code = Potassium Level) Chloride Level (test 98 mmol/L 98-105 code = Chloride Level) CO2 (test code = 24 mmol/L 22-29 CO2) Anion Gap (test code 13 mmol/L 7-16 = Anion Gap) BUN (test code = 23.60 mg/dL 8.00-23.00 H BUN) Creatinine Level 1.50 mg/dL 0.70-1.20 H (test code = Creatinine Level) BUN/Creat Ratio 16 N (test code = BUN/Creat Ratio) Glucose Level (test 99 mg/dL 70-115 code = Glucose Level) Calcium Level (test 9.2 mg/dL 8.3-10.5 code = Calcium Level) Alk Phos (test code 93 U/L 40-129 = Alk Phos) Bilirubin Total 0.5 mg/dL 0.1-0.9 (test code = Bilirubin Total) Albumin Level (test 3.9 g/dL 3.5-5.2 code = Albumin Level) Protein Total (test 6.7 g/dL 6.4-8.3 code = Protein Total) ALT (test code = 24 U/L 1-41 ALT) AST (test code = 24 U/L 1-40 AST) Globulin (test code 2.8 g/dL 2.9-3.1 L = Globulin) A/G Ratio (test code 1.4 ratio N = A/G Ratio) eGFR AA (test code = 55 mL/min/1.73 N eGFR (estimated eGFR AA) m2 Glomerular Filtration Rate ) is an estimated va lue, calculated from the patient's serum creatinine usin g the MDRD equation. It is NOT the patient 's actual GFR. The eGFR provides a more clinically usef ul measure of kidn ey disease than se rum creatinine alone.This calculation judith es sex and race in to account, if the information is provided. If th e race is not provided, and t he patient is -Precious n, multiply by 1.2 12. If sex is not provided, and t he patient is fema le, multiply by 0.7 42. Results for pat ients <18 years of ag e have not been validated by th e MDRD study and should be interpreted wit h caution. eGFR R esult Interpretation: eGFR > or = 60 is in the Normal RangeeGF R < 60 may mean kid galen diseaseeGFR < 1 5 may mean kidney failure Rang es recommended by the National Kid[employer] Foundation, http://nkdep.ni h.gov Comprehensive Metabolic [id number] 07:21:29 Test Item Value Reference Range Interpretation Comments Sodium Level (test 135.0 mmol/L 135.0-145.0 code = Sodium Level) Potassium Level 4.6 mmol/L 3.5-5.1 (test code = Potassium Level) Chloride Level (test 98 mmol/L 98-105 code = Chloride Level) CO2 (test code = 24 mmol/L 22-29 CO2) Anion Gap (test code 13 mmol/L 7-16 = Anion Gap) BUN (test code = 23.60 mg/dL 8.00-23.00 H BUN) Creatinine Level 1.50 mg/dL 0.70-1.20 H (test code = Creatinine Level) BUN/Creat Ratio 16 N (test code = BUN/Creat Ratio) Glucose Level (test 99 mg/dL 70-115 code = Glucose Level) Calcium Level (test 9.2 mg/dL 8.3-10.5 code = Calcium Level) Alk Phos (test code 93 U/L 40-129 = Alk Phos) Bilirubin Total 0.5 mg/dL 0.1-0.9 (test code = Bilirubin Total) Albumin Level (test 3.9 g/dL 3.5-5.2 code = Albumin Level) Protein Total (test 6.7 g/dL 6.4-8.3 code = Protein Total) ALT (test code = 24 U/L 1-41 ALT) AST (test code = 24 U/L 1-40 AST) Globulin (test code 2.8 g/dL 2.9-3.1 L = Globulin) A/G Ratio (test code 1.4 ratio N = A/G Ratio) eGFR AA (test code = 55 mL/min/1.73 N eGFR (estimated eGFR AA) m2 Glomerular Filtration Rate ) is an estimated va lue, calculated from the patient's serum creatinine usin g the MDRD equation. It is NOT the patient 's actual GFR. The eGFR provides a more clinically usef ul measure of kidn ey disease than se rum creatinine alone.This calculation judith es sex and race in to account, if the information is provided. If th e race is not provided, and t he patient is -Precious n, multiply by 1.2 12. If sex is not provided, and t he patient is fema le, multiply by 0.7 42. Results for pat ients <18 years of ag e have not been validated by [facility]D study and should be interpreted wit h caution. eGFR R esult Interpretation: eGFR > or = 60 is in the Normal RangeeGF R < 60 may mean kid galen diseaseeGFR < 1 5 may mean kidney failure Rang es recommended by the National Kidney Foundation, http://nkdep.ni h.gov eGFR Non-AA (test 45.75 N eGFR (amalia mated code = eGFR Non-AA) mL/min/1.73 m2 Glomer ular Filtration Rate ) is an estimated va lue, calculated from the patient's serum creatinine usin g the MDRD equation. It is NOT the patient 's actual GFR. The eGFR provides a more clinically usef ul measure of kidn ey disease than se rum creatinine alone.This calculation judith es sex and race in to account, if the information is provided. If th e race is not provided, and t he patient is -Precious n, multiply by 1.2 12. If sex is not provided, and t he patient is fema le, multiply by 0.7 42. Results for pat ients <18 years of ag e have not been validated by [facility] MDRD study and should be interpreted wit h caution. eGFR R esult Interpretation: eGFR > or = 60 is in the Normal RangeeGF R < 60 may mean kid galen diseaseeGFR < 1 5 may mean kidney failure Rang es recommended by the National Kidney Foundation, http://nkdep.ni h.gov Prothrombin Time and [id number] 06:52:47 Test Item Value Reference Range Interpretation Comments Prothrombin Time (test code = 11.7 seconds 9.8-13.4 Prothrombin Time) INR (test code = INR) 1.0 ratio 0.6-1.2 Complete Blood Count with [id number] 06:47:15 Test Item Value Reference Range Interpretation Comments WBC (test code = WBC) 9.6 x10 4.4-10.5 RBC (test code = RBC) 4.33 x10 4.10-5.70 Hgb (test code = Hgb) 14.9 g/dL 13.4-17.4 MCV (test code = MCV) 100.20 fL 80.00-100.00 H Hct (test code = Hct) 43.4 % 38.7-52.0 MCHC (test code = 34.30 g/dL 32.00-37.50 MCHC) RDW CV (test code = 14.3 % 11.5-14.5 RDW CV) MCH (test code = MCH) 34.4 pg 27.0-32.5 H Platelets (test code = 219.0 x10 140.0-440.0 Platelets) MPV (test code = MPV) 10.0 fL N Slide Review (test Auto Auto Result cr eated by code = Slide Review) GL_SJM_ SLIDE_REV_AUTO nRBC (test code = 0 N nRBC) NRBC Abs (test code = 0.00 x10 N NRBC Abs) IPF (test code = IPF) 0 % N Automated [id number] 06:47:15 Test Item Value Reference Range Interpretation Comments Neutro Auto (test code = Neutro 68.5 % 36.0-70.0 Auto) Lymph Auto (test code = Lymph Auto) 18.7 % 12.0-44.0 Tyrrell Auto (test code = Tyrrell Auto) 8.5 % 0.0-11.0 Eos, Auto (test code = Eos, Auto) 3.4 % 0.0-7.0 Basophil Auto (test code = Basophil 0.5 % 0.0-2.0 Auto) Neutro Absolute (test code = Neutro 6.6 x10 1.6-7.4 Absolute) Lymph Absolute (test code = Lymph 1.80 x10 .50-4.60 Absolute) Tyrrell Absolute (test code = Tyrrell .82 x10 .00-1.20 Absolute) Eos Absolute (test code = Eos 0.33 x10 0.00-0.74 Absolute) Baso Absolute (test code = Baso 0.05 x10 0.00-0.21 Absolute) IG [id number] 06:47:15 Test Item Value Reference Range Interpretation Comments IG (test code = IG) 0.4 % 0.0-5.0 IG Abs (test code = IG Abs) 0 x10 N US Retroperitoneal [id number] 06:35:18Patient: GRETEL SULTANA Date/Time08/25/2019 05:25 CSTReason for ExamAbnormal BUN/creatinineReportLOCATION: [id number]: US Retroperitoneal CompleteINDICATION: Abnormal BUN/creatinineCOMPARISON: None.TECHNIQUE: Real-time grayscale sonographic images of the kidneys and urinary bladder are submitted for interpretation.FINDINGS: Right kidney is normal in echogenicity measuring 9.8 x 5.7 x 5.8 cm. Renal cortex measures 1.5 cm in thickness. No hydronephrosis is seen. Tiny echogenic shadowing stones suspect measuring up to 3 mm.Left kidney is normal in echogenicity measuring 10.3 x 4.5 x 6.4 cm. Renal cortex measures 1.3 cm in thickness. No hydronephr osis. Tiny echogenic shadowing stone suspected measuring up to 3 mm.Urinary bladder is normal in appearance. No abnormal wall thickening or filling defect. Prostate is normal in size.IMPRESSION: Tiny bilateral echogenic shadowing stones suspected measuring up to 3 mm. No hydronephrosis. Final Dictated by: MD Amaya, Wally LAWSONictated DT/TM: 08/25/2019 6:33 amSigned by: MD Conde Jesse MSigned (Electronic Signature): 08/25/2019 6:35 amABORh Retype 2019-08-25 00:20:37 Test Item Value Reference Range Interpretation Comments Methodology (test code = Test-Tube(TT) Methodology) Anti-A (test code = Anti-A) 0 Anti-B (test code = Anti-B) 0 Anti-AB (test code = Anti-AB) NT Anti-D (test code = Anti-D) 4+ ABORh Retype (test code = ABORh O POS Retype) 3C ABSC [id number] 23:03:00 Test Item Value Reference Range Interpretation Comments SC1 IS (test code = SC1 IS) NT SC2 IS (test code = SC2 IS) NT SC3 IS (test code = SC3 IS) NT SC1 37 (test code = SC1 37) 0 SC2 37 (test code = SC2 37) 0 SC3 37 (test code = SC3 37) 0 SC1 AHG (test code = SC1 AHG) 0 SC2 AHG (test code = SC2 AHG) 0 SC3 AHG (test code = SC3 AHG) 0 SC1 CC (test code = SC1 CC) 3+ SC2 CC (test code = SC2 CC) 3+ SC3 CC (test code = SC3 CC) 3+ Antibody Screen (3C) (test code Negative ABSC = Antibody Screen (3C)) [id number] 22:23:41 Test Item Value Reference Range Interpretation Comments Previous History (test code = No Prev History Previous History) BBID (test code = BBID) [id number] Methodology (test code = Test-Tube(TT) Methodology) Anti-A (test code = Anti-A) 0 Anti-B (test code = Anti-B) 0 Anti-D (test code = Anti-D) 3+ DCon (test code = DCon) NT A1 (test code = A1) 4+ B cells (test code = B cells) 4+ ABORh (test code = ABORh) O POS CT Brain/Head w/o [id number] 19:01:40Patient: GRETEL SULTANA Date/Time08/24/2019 18:45 CSTReason for ExamDizzinessReportEXAM: CT Brain/Head w/o ContrastHISTORY: DizzinessLOCATION:R 16COMPARISON: None available time of interpretation.TECHNIQUE: Axial tomograms through the brain were obtained without intravenous contrast. Coronal and sagittal reformatted images are provided. All CT scans are performed using radiation dose reduction technique. Technical factors are evaluated and adjusted to insure appropriate moderation of exposure. Automated dose management technology is applied to adjust the radiation dose to minimize exposure while achieving a diagnostic quality image.FINDINGS:The mendez white matter differentiation is preserved. No acute hypodensity suggesting cerebralinfarction is identified, however MRI is more sensitive if this diagnosis is clinically suspected. No intracranial hemorrhage or extra-axial collection is identified. There is no mass or mass effect. The ventricles and basal cisterns are age appropriate.The orbits are unremarkable.The visualized paranasal sinuses and mastoid air cells are clear.No acute fracture is present.IMPRESSION:No acute intracranial abnormality. Final Dictated by: Contributor_system, PSCRIBE_CTZDictated DT/TM: 08/24/2019 6:59 pmSigned by: Contributor_system, PSCRIBE_CTZSigned (Electronic Signature): 08/24/2019 7:01 pmBasi Metabolic [id number] 07:39:02 Test Item Value Reference Range Interpretation Comments Sodium Level (test code = Sodium 136.0 mmol/L 135.0-145.0 Level) Potassium Level (test code = 5.0 mmol/L 3.5-5.1 Potassium Level) Chloride Level (test code = 98 mmol/L 98-105 Chloride Level) CO2 (test code = CO2) 27 mmol/L 22-29 Anion Gap (test code = Anion 11 mmol/L 7-16 Gap) BUN (test code = BUN) 20.80 mg/dL 8.00-23.00 Creatinine Level (test code = 1.60 mg/dL 0.70-1.20 H Creatinine Level) BUN/Creat Ratio (test code = 13 N BUN/Creat Ratio) Glucose Level (test code = 105 mg/dL 70-115 Glucose Level) Calcium Level (test code = 9.7 mg/dL 8.3-10.5 Calcium Level) Basic Metabolic [id number] 07:39:02 Test Item Value Reference Range Interpretation Comments Sodium Level (test 136.0 mmol/L 135.0-145.0 code = Sodium Level) Potassium Level 5.0 mmol/L 3.5-5.1 (test code = Potassium Level) Chloride Level (test 98 mmol/L 98-105 code = Chloride Level) CO2 (test code = 27 mmol/L 22-29 CO2) Anion Gap (test code 11 mmol/L 7-16 = Anion Gap) BUN (test code = 20.80 mg/dL 8.00-23.00 BUN) Creatinine Level 1.60 mg/dL 0.70-1.20 H (test code = Creatinine Level) BUN/Creat Ratio 13 N (test code = BUN/Creat Ratio) Glucose Level (test 105 mg/dL 70-115 code = Glucose Level) Calcium Level (test 9.7 mg/dL 8.3-10.5 code = Calcium Level) eGFR AA (test code = 51 mL/min/1.73 N eGFR (estimated eGFR AA) m2 Glomerular Filtration Rate ) is an estimated va lue, calculated from the patient's serum creatinine usin g the MDRD equation. It is NOT the patient 's actual GFR. The eGFR provides a more clinically usef ul measure of kidn ey disease than se rum creatinine alone.This calculation judith es sex and race in to account, if the information is provided. If th e race is not provided, and t he patient is -Precious n, multiply by 1.2 12. If sex is not provided, and t he patient is fema le, multiply by 0.7 42. Results for pat ients <18 years of ag e have not been validated by th e MDRD study and should be interpreted wit h caution. eGFR R esult Interpretation: eGFR > or = 60 is in the Normal RangeeGF R < 60 may mean kid galen diseaseeGFR < 1 5 may mean kidney failure Rang es recommended by the National Kidney Foundation, http://nkdep.ni h.gov Basic Metabolic [id number] 07:39:02 Test Item Value Reference Range Interpretation Comments Sodium Level (test 136.0 mmol/L 135.0-145.0 code = Sodium Level) Potassium Level 5.0 mmol/L 3.5-5.1 (test code = Potassium Level) Chloride Level (test 98 mmol/L 98-105 code = Chloride Level) CO2 (test code = 27 mmol/L 22-29 CO2) Anion Gap (test code 11 mmol/L 7-16 = Anion Gap) BUN (test code = 20.80 mg/dL 8.00-23.00 BUN) Creatinine Level 1.60 mg/dL 0.70-1.20 H (test code = Creatinine Level) BUN/Creat Ratio 13 N (test code = BUN/Creat Ratio) Glucose Level (test 105 mg/dL 70-115 code = Glucose Level) Calcium Level (test 9.7 mg/dL 8.3-10.5 code = Calcium Level) eGFR AA (test code = 51 mL/min/1.73 N eGFR (estimated eGFR AA) m2 Glomerular Filtration Rate ) is an estimated va lue, calculated from the patient's serum creatinine usin g the MDRD equation. It is NOT the patient 's actual GFR. The eGFR provides a more clinically usef ul measure of kidn ey disease than se rum creatinine alone.This calculation judith es sex and race in to account, if the information is provided. If th e race is not provided, and t he patient is -Precious n, multiply by 1.2 12. If sex is not provided, and t he patient is fema le, multiply by 0.7 42. Results for pat ients <18 years of ag e have not been validated by [facility] study and should be interpreted wit h caution. eGFR R esult Interpretation: eGFR > or = 60 is in the Normal RangeeGF R < 60 may mean kid galen diseaseeGFR < 1 5 may mean kidney failure Rang es recommended by the National Kidney Foundation, http://nkdep.ni h.gov eGFR Non-AA (test 42.46 N eGFR (amalia mated code = eGFR Non-AA) mL/min/1.73 m2 Glomer ular Filtration Rate ) is an estimated va lue, calculated from the patient's serum creatinine usin g the MDRD equation. It is NOT the patient 's actual GFR. The eGFR provides a more clinically usef ul measure of kidn ey disease than se rum creatinine alone.This calculation judith es sex and race in to account, if the information is provided. If th e race is not provided, and t he patient is -Precious n, multiply by 1.2 12. If sex is not provided, and t he patient is fema le, multiply by 0.7 42. Results for pat ients <18 years of ag e have not been validated by [facility] study and should be interpreted wit h caution. eGFR R esult Interpretation: eGFR > or = 60 is in the Normal RangeeGF R < 60 may mean kid galen diseaseeGFR < 1 5 may mean kidney failure Rang es recommended by the National Kidney Foundation, http://nkdep.ni h.gov Complete Blood Count with [id number] 07:15:29 Test Item Value Reference Range Interpretation Comments WBC (test code = WBC) 9.4 x10 4.4-10.5 RBC (test code = RBC) 4.77 x10 4.10-5.70 Hgb (test code = Hgb) 16.3 g/dL 13.4-17.4 Hct (test code = Hct) 47.9 % 38.7-52.0 MCV (test code = MCV) 100.40 fL 80.00-100.00 H MCHC (test code = 34.00 g/dL 32.00-37.50 MCHC) RDW CV (test code = 14.3 % 11.5-14.5 RDW CV) MCH (test code = MCH) 34.2 pg 27.0-32.5 H Platelets (test code = 226.0 x10 140.0-440.0 Platelets) MPV (test code = MPV) 9.8 fL N Slide Review (test Auto Auto Result cr eated by code = Slide Review) GL_SJM_ SLIDE_REV_AUTO nRBC (test code = 0 N nRBC) NRBC Abs (test code = 0.00 x10 N NRBC Abs) IPF (test code = IPF) 0 % N Automated [id number] 07:15:29 Test Item Value Reference Range Interpretation Comments Neutro Auto (test code = Neutro 64.8 % 36.0-70.0 Auto) Lymph Auto (test code = Lymph Auto) 22.8 % 12.0-44.0 Tyrrell Auto (test code = Tyrrell Auto) 7.8 % 0.0-11.0 Eos, Auto (test code = Eos, Auto) 3.5 % 0.0-7.0 Basophil Auto (test code = Basophil 0.7 % 0.0-2.0 Auto) Neutro Absolute (test code = Neutro 6.1 x10 1.6-7.4 Absolute) Lymph Absolute (test code = Lymph 2.14 x10 .50-4.60 Absolute) Tyrrell Absolute (test code = Tyrrell .73 x10 .00-1.20 Absolute) Eos Absolute (test code = Eos 0.33 x10 0.00-0.74 Absolute) Baso Absolute (test code = Baso 0.07 x10 0.00-0.21 Absolute) IG [id number] 07:15:29 Test Item Value Reference Range Interpretation Comments IG (test code = IG) 0.4 % 0.0-5.0 IG Abs (test code = IG Abs) 0 x10 N Thyroid Stimulating [id number] 06:44:41 Test Item Value Reference Range Interpretation Comments TSH (test code = TSH) 4.590 mIU/mL 0.270-4.200 H Comprehensive Metabolic [id number] 06:12:58 Test Item Value Reference Range Interpretation Comments Sodium Level (test code = Sodium 136.0 mmol/L 135.0-145.0 Level) Potassium Level (test code = 5.1 mmol/L 3.5-5.1 Potassium Level) Chloride Level (test code = 96 mmol/L 98-105 L Chloride Level) CO2 (test code = CO2) 29 mmol/L 22-29 Anion Gap (test code = Anion 11 mmol/L 7-16 Gap) BUN (test code = BUN) 15.90 mg/dL 8.00-23.00 Creatinine Level (test code = 1.40 mg/dL 0.70-1.20 H Creatinine Level) BUN/Creat Ratio (test code = 11 N BUN/Creat Ratio) Glucose Level (test code = 105 mg/dL 70-115 Glucose Level) Calcium Level (test code = 9.7 mg/dL 8.3-10.5 Calcium Level) Alk Phos (test code = Alk Phos) 105 U/L 40-129 Bilirubin Total (test code = 0.5 mg/dL 0.1-0.9 Bilirubin Total) Albumin Level (test code = 3.9 g/dL 3.5-5.2 Albumin Level) Protein Total (test code = 6.7 g/dL 6.4-8.3 Protein Total) ALT (test code = ALT) 26 U/L 1-41 AST (test code = AST) 27 U/L 1-40 Globulin (test code = Globulin) 2.8 g/dL 2.9-3.1 L A/G Ratio (test code = A/G 1.4 ratio N Ratio) Hemoglobin [id number] 06:12:58 Test Item Value Reference Range Interpretation Comments Hemoglobin A1c (test code 5.7 % 4.8-5.9 No n Diabetic = Hemoglobin A1c) 4.8-5.9%Di abetic <7.0% Comprehensive Metabolic [id number] 06:12:58 Test Item Value Reference Range Interpretation Comments Sodium Level (test 136.0 mmol/L 135.0-145.0 code = Sodium Level) Potassium Level 5.1 mmol/L 3.5-5.1 (test code = Potassium Level) Chloride Level (test 96 mmol/L 98-105 L code = Chloride Level) CO2 (test code = 29 mmol/L 22-29 CO2) Anion Gap (test code 11 mmol/L 7-16 = Anion Gap) BUN (test code = 15.90 mg/dL 8.00-23.00 BUN) Creatinine Level 1.40 mg/dL 0.70-1.20 H (test code = Creatinine Level) BUN/Creat Ratio 11 N (test code = BUN/Creat Ratio) Glucose Level (test 105 mg/dL 70-115 code = Glucose Level) Calcium Level (test 9.7 mg/dL 8.3-10.5 code = Calcium Level) Alk Phos (test code 105 U/L 40-129 = Alk Phos) Bilirubin Total 0.5 mg/dL 0.1-0.9 (test code = Bilirubin Total) Albumin Level (test 3.9 g/dL 3.5-5.2 code = Albumin Level) Protein Total (test 6.7 g/dL 6.4-8.3 code = Protein Total) ALT (test code = 26 U/L 1-41 ALT) AST (test code = 27 U/L 1-40 AST) Globulin (test code 2.8 g/dL 2.9-3.1 L = Globulin) A/G Ratio (test code 1.4 ratio N = A/G Ratio) eGFR AA (test code = 60 mL/min/1.73 N eGFR (estimated eGFR AA) m2 Glomerular Filtration Rate ) is an estimated va lue, calculated from the patient's serum creatinine usin g the MDRD equation. It is NOT the patient 's actual GFR. The eGFR provides a more clinically usef ul measure of kidn ey disease than se rum creatinine alone.This calculation judith es sex and race in to account, if the information is provided. If th e race is not provided, and t he patient is -Precious n, multiply by 1.2 12. If sex is not provided, and t he patient is fema le, multiply by 0.7 42. Results for pat ients <18 years of ag e have not been validated by th e MDRD study and should be interpreted wit h caution. eGFR R esult Interpretation: eGFR > or = 60 is in the Normal RangeeGF R < 60 may mean kid galen diseaseeGFR < 1 5 may mean kidney failure Rang es recommended by the National Kidney Foundation, http://nkdep.ni h.gov Lipid [id number] 06:12:58 Test Item Value Reference Range Interpretation Comments Cholesterol Total 215 mg/dL 0-200 H RISK OF HE ART (test code = DISEASEPublishe d by Cholesterol Total) Citizen Of [place] [employer] Susannah lyte Optimal Borderl ine Increased RiskC HOL <200 200-239 >2 40TRIG <150 150-199 >2 00HDL Male >60 <40H DL Female >60 <5 0LDL <100 130-159 >1 60LDL Near optimal is 100-129 Triglycerides (test 252 mg/dL 9-200 H code = Triglycerides) HDL (test code = HDL) 47 mg/dL 40-60 LDL (test code = LDL) 118 mg/dL 0-130 The eq uation being used in this calcula tion is LDL = (Chol - H DL) - (Trig / 5) VLDL (test code = 50 mg/dL 5-40 H The equati on being used VLDL) in this calcula tion is VLDL = Trig / 5 Chol/HDL (test code = 4.6 ratio 0.0-5.0 Chol/HDL) LDL/HDL Ratio (test 3 N The equa tion being used code = LDL/HDL Ratio) in thi s calculation is LDL/HDL Ratio=L DL Calc/HDL Chol Pro B Natriuretic [id number] 06:12:58 Test Item Value Reference Range Interpretation Comments NT-proBNP (test code = NT-proBNP) 802 pg/mL 0-124 H Comprehensive Metabolic [id number] 06:12:58 Test Item Value Reference Range Interpretation Comments Sodium Level (test 136.0 mmol/L 135.0-145.0 code = Sodium Level) Potassium Level 5.1 mmol/L 3.5-5.1 (test code = Potassium Level) Chloride Level (test 96 mmol/L 98-105 L code = Chloride Level) CO2 (test code = 29 mmol/L 22-29 CO2) Anion Gap (test code 11 mmol/L 7-16 = Anion Gap) BUN (test code = 15.90 mg/dL 8.00-23.00 BUN) Creatinine Level 1.40 mg/dL 0.70-1.20 H (test code = Creatinine Level) BUN/Creat Ratio 11 N (test code = BUN/Creat Ratio) Glucose Level (test 105 mg/dL 70-115 code = Glucose Level) Calcium Level (test 9.7 mg/dL 8.3-10.5 code = Calcium Level) Alk Phos (test code 105 U/L 40-129 = Alk Phos) Bilirubin Total 0.5 mg/dL 0.1-0.9 (test code = Bilirubin Total) Albumin Level (test 3.9 g/dL 3.5-5.2 code = Albumin Level) Protein Total (test 6.7 g/dL 6.4-8.3 code = Protein Total) ALT (test code = 26 U/L 1-41 ALT) AST (test code = 27 U/L 1-40 AST) Globulin (test code 2.8 g/dL 2.9-3.1 L = Globulin) A/G Ratio (test code 1.4 ratio N = A/G Ratio) eGFR AA (test code = 60 mL/min/1.73 N eGFR (estimated eGFR AA) m2 Glomerular Filtration Rate ) is an estimated va lue, calculated from the patient's serum creatinine usin g the MDRD equation. It is NOT the patient 's actual GFR. The eGFR provides a more clinically usef ul measure of kidn ey disease than se rum creatinine alone.This calculation judith es sex and race in to account, if the information is provided. If th e race is not provided, and t he patient is -Precious n, multiply by 1.2 12. If sex is not provided, and t he patient is fema le, multiply by 0.7 42. Results for pat ients <18 years of ag e have not been validated by th e MDRD study and should be interpreted wit h caution. eGFR R esult Interpretation: eGFR > or = 60 is in the Normal RangeeGF R < 60 may mean kid galen diseaseeGFR < 1 5 may mean kidney failure Rang es recommended by the National Kidney Foundation, http://nkdep.ni h.gov eGFR Non-AA (test 49.54 N eGFR (amalia mated code = eGFR Non-AA) mL/min/1.73 m2 Glomer ular Filtration Rate ) is an estimated va lue, calculated from the patient's serum creatinine usin g the MDRD equation. It is NOT the patient 's actual GFR. The eGFR provides a more clinically usef ul measure of kidn ey disease than se rum creatinine alone.This calculation judith es sex and race in to account, if the information is provided. If e race is not provided, and t he patient is -Precious n, multiply by 1.2 12. If sex is not provided, and t he patient is fema le, multiply by 0.7 42. Results for pat ients <18 years of ag e have not been validated by [facility] and should be interpreted wit h caution. eGFR R esult Interpretation: eGFR > or = 60 is in the Normal RangeeGF R < 60 may mean kid galen diseaseeGFR < 1 5 may mean kidney failure Rang es recommended by the National Kidney Foundation, http://nkdep.ni h.gov Complete Blood Count with [id number] 05:57:38 Test Item Value Reference Range Interpretation Comments WBC (test code = WBC) 8.4 x10 4.4-10.5 RBC (test code = RBC) 4.32 x10 4.10-5.70 Hgb (test code = Hgb) 14.8 g/dL 13.4-17.4 MCV (test code = MCV) 100.70 fL 80.00-100.00 H Hct (test code = Hct) 43.5 % 38.7-52.0 MCHC (test code = 34.00 g/dL 32.00-37.50 MCHC) RDW CV (test code = 14.6 % 11.5-14.5 H RDW CV) MCH (test code = MCH) 34.3 pg 27.0-32.5 H Platelets (test code = 213.0 x10 140.0-440.0 Platelets) MPV (test code = MPV) 9.8 fL N Slide Review (test Auto Auto Result cr eated by code = Slide Review) GL_SJM_ SLIDE_REV_AUTO nRBC (test code = 0 N nRBC) NRBC Abs (test code = 0.00 x10 N NRBC Abs) IPF (test code = IPF) 0 % N Automated [id number] 05:57:38 Test Item Value Reference Range Interpretation Comments Neutro Auto (test code = Neutro 69.1 % 36.0-70.0 Auto) Lymph Auto (test code = Lymph Auto) 19.5 % 12.0-44.0 Tyrrell Auto (test code = Tyrrell Auto) 7.8 % 0.0-11.0 Eos, Auto (test code = Eos, Auto) 2.8 % 0.0-7.0 Basophil Auto (test code = Basophil 0.6 % 0.0-2.0 Auto) Neutro Absolute (test code = Neutro 5.8 x10 1.6-7.4 Absolute) Lymph Absolute (test code = Lymph 1.63 x10 .50-4.60 Absolute) Tyrrell Absolute (test code = Tyrrell .65 x10 .00-1.20 Absolute) Eos Absolute (test code = Eos 0.23 x10 0.00-0.74 Absolute) Baso Absolute (test code = Baso 0.05 x10 0.00-0.21 Absolute) IG [id number] 05:57:38 Test Item Value Reference Range Interpretation Comments IG (test code = IG) 0.2 % 0.0-5.0 IG Abs (test code = IG Abs) 0 x10 N Comprehensive Metabolic [id number] 09:39:25 Test Item Value Reference Range Interpretation Comments Sodium Level (test code = Sodium 137.0 mmol/L 135.0-145.0 Level) Potassium Level (test code = 4.7 mmol/L 3.5-5.1 Potassium Level) Chloride Level (test code = 98 mmol/L 98-105 Chloride Level) CO2 (test code = CO2) 26 mmol/L 22-29 Anion Gap (test code = Anion 13 mmol/L 7-16 Gap) BUN (test code = BUN) 18.60 mg/dL 8.00-23.00 Creatinine Level (test code = 1.30 mg/dL 0.70-1.20 H Creatinine Level) BUN/Creat Ratio (test code = 14 N BUN/Creat Ratio) Glucose Level (test code = 111 mg/dL 70-115 Glucose Level) Calcium Level (test code = 9.5 mg/dL 8.3-10.5 Calcium Level) Alk Phos (test code = Alk Phos) 113 U/L 40-129 Bilirubin Total (test code = 0.4 mg/dL 0.1-0.9 Bilirubin Total) Albumin Level (test code = 4.0 g/dL 3.5-5.2 Albumin Level) Protein Total (test code = 7.1 g/dL 6.4-8.3 Protein Total) ALT (test code = ALT) 22 U/L 1-41 AST (test code = AST) 24 U/L 1-40 Globulin (test code = Globulin) 3.1 g/dL 2.9-3.1 A/G Ratio (test code = A/G 1.3 ratio N Ratio) Comprehensive Metabolic [id number] 09:39:25 Test Item Value Reference Range Interpretation Comments Sodium Level (test 137.0 mmol/L 135.0-145.0 code = Sodium Level) Potassium Level 4.7 mmol/L 3.5-5.1 (test code = Potassium Level) Chloride Level (test 98 mmol/L 98-105 code = Chloride Level) CO2 (test code = 26 mmol/L 22-29 CO2) Anion Gap (test code 13 mmol/L 7-16 = Anion Gap) BUN (test code = 18.60 mg/dL 8.00-23.00 BUN) Creatinine Level 1.30 mg/dL 0.70-1.20 H (test code = Creatinine Level) BUN/Creat Ratio 14 N (test code = BUN/Creat Ratio) Glucose Level (test 111 mg/dL 70-115 code = Glucose Level) Calcium Level (test 9.5 mg/dL 8.3-10.5 code = Calcium Level) Alk Phos (test code 113 U/L 40-129 = Alk Phos) Bilirubin Total 0.4 mg/dL 0.1-0.9 (test code = Bilirubin Total) Albumin Level (test 4.0 g/dL 3.5-5.2 code = Albumin Level) Protein Total (test 7.1 g/dL 6.4-8.3 code = Protein Total) ALT (test code = 22 U/L 1-41 ALT) AST (test code = 24 U/L 1-40 AST) Globulin (test code 3.1 g/dL 2.9-3.1 = Globulin) A/G Ratio (test code 1.3 ratio N = A/G Ratio) eGFR AA (test code = >60 N eGFR (e stimated eGFR AA) mL/min/1.73 m2 Glomerular Filtration Rate ) is an estimated va lue, calculated from the patient's serum creatinine usin g the MDRD equation. It is NOT the patient 's actual GFR. The eGFR provides a more clinically usef ul measure of kidn ey disease than se rum creatinine alone.This calculation judith es sex and race in to account, if the information is provided. If th e race is not provided, and t he patient is -Precious n, multiply by 1.2 12. If sex is not provided, and t he patient is fema le, multiply by 0.7 42. Results for pat ients <18 years of ag e have not been validated by th e MDRD study and should be interpreted wit h caution. eGFR R esult Interpretation: eGFR > or = 60 is in the Normal RangeeGF R < 60 may mean kid galen diseaseeGFR < 1 5 may mean kidney failure Rang es recommended by the National Kidney Foundation, http://nkdep.ni h.gov Comprehensive Metabolic [id number] 09:39:25 Test Item Value Reference Range Interpretation Comments Sodium Level (test 137.0 mmol/L 135.0-145.0 code = Sodium Level) Potassium Level 4.7 mmol/L 3.5-5.1 (test code = Potassium Level) Chloride Level (test 98 mmol/L 98-105 code = Chloride Level) CO2 (test code = 26 mmol/L 22-29 CO2) Anion Gap (test code 13 mmol/L 7-16 = Anion Gap) BUN (test code = 18.60 mg/dL 8.00-23.00 BUN) Creatinine Level 1.30 mg/dL 0.70-1.20 H (test code = Creatinine Level) BUN/Creat Ratio 14 N (test code = BUN/Creat Ratio) Glucose Level (test 111 mg/dL 70-115 code = Glucose Level) Calcium Level (test 9.5 mg/dL 8.3-10.5 code = Calcium Level) Alk Phos (test code 113 U/L 40-129 = Alk Phos) Bilirubin Total 0.4 mg/dL 0.1-0.9 (test code = Bilirubin Total) Albumin Level (test 4.0 g/dL 3.5-5.2 code = Albumin Level) Protein Total (test 7.1 g/dL 6.4-8.3 code = Protein Total) ALT (test code = 22 U/L 1-41 ALT) AST (test code = 24 U/L 1-40 AST) Globulin (test code 3.1 g/dL 2.9-3.1 = Globulin) A/G Ratio (test code 1.3 ratio N = A/G Ratio) eGFR AA (test code = >60 N eGFR (e stimated eGFR AA) mL/min/1.73 m2 Glomerular Filtration Rate ) is an estimated va lue, calculated from the patient's serum creatinine usin g the MDRD equation. It is NOT the patient 's actual GFR. The eGFR provides a more clinically usef ul measure of kidn ey disease than se rum creatinine alone.This calculation judith es sex and race in to account, if the information is provided. If th e race is not provided, and t he patient is -Precious n, multiply by 1.2 12. If sex is not provided, and t he patient is fema le, multiply by 0.7 42. Results for pat ients <18 years of ag e have not been validated by th e MDRD study and should be interpreted wit h caution. eGFR R esult Interpretation: eGFR > or = 60 is in the Normal RangeeGF R < 60 may mean kid galen diseaseeGFR < 1 5 may mean kidney failure Rang es recommended by the National Kidney Foundation, http://nkdep.ni h.gov eGFR Non-AA (test 53.96 N eGFR (amalia mated code = eGFR Non-AA) mL/min/1.73 m2 Glomer ular Filtration Rate ) is an estimated va lue, calculated from the patient's serum creatinine usin g the MDRD equation. It is NOT the patient 's actual GFR. The eGFR provides a more clinically usef ul measure of kidn ey disease than se rum creatinine alone.This calculation judith es sex and race in to account, if the information is provided. If th e race is not provided, and t he patient is -Precious n, multiply by 1.2 12. If sex is not provided, and t he patient is fema le, multiply by 0.7 42. Results for pat ients <18 years of ag e have not been validated by th e MDRD study and should be interpreted wit h caution. eGFR R esult Interpretation: eGFR > or = 60 is in the Normal RangeeGF R < 60 may mean kid galen diseaseeGFR < 1 5 may mean kidney failure Rang es recommended by the [employer], http://nkdep.ni h.gov Prothrombin Time and [id number] 09:09:26 Test Item Value Reference Range Interpretation Comments Prothrombin Time (test code = 11.1 seconds 9.8-13.4 Prothrombin Time) INR (test code = INR) 1.0 ratio 0.6-1.2 Partial Thromboplastin [id number] 09:09:26 Test Item Value Reference Range Interpretation Comments Partial Thromboplastin Time 32.30 seconds 24.39-37.25 (test code = Partial Thromboplastin Time) IG [id number] 08:24:56 Test Item Value Reference Range Interpretation Comments IG (test code = IG) 0.4 % 0.0-5.0 IG Abs (test code = IG Abs) 0 x10 N Complete Blood Count with [id number] 08:24:55 Test Item Value Reference Range Interpretation Comments WBC (test code = WBC) 9.1 x10 4.4-10.5 RBC (test code = RBC) 4.33 x10 4.10-5.70 Hgb (test code = Hgb) 14.8 g/dL 13.4-17.4 Hct (test code = Hct) 43.1 % 38.7-52.0 MCV (test code = MCV) 99.50 fL 80.00-100.00 MCHC (test code = 34.30 g/dL 32.00-37.50 MCHC) RDW CV (test code = 14.4 % 11.5-14.5 RDW CV) MCH (test code = MCH) 34.2 pg 27.0-32.5 H Platelets (test code = 241.0 x10 140.0-440.0 Platelets) MPV (test code = MPV) 9.7 fL N Slide Review (test Auto Auto Result cr eated by code = Slide Review) GL_SJM_ SLIDE_REV_AUTO nRBC (test code = 0 N nRBC) NRBC Abs (test code = 0.00 x10 N NRBC Abs) IPF (test code = IPF) 0 % N Automated [id number] 08:24:55 Test Item Value Reference Range Interpretation Comments Neutro Auto (test code = Neutro 69.0 % 36.0-70.0 Auto) Lymph Auto (test code = Lymph Auto) 19.0 % 12.0-44.0 Tyrrell Auto (test code = Tyrrell Auto) 7.9 % 0.0-11.0 Eos, Auto (test code = Eos, Auto) 3.2 % 0.0-7.0 Basophil Auto (test code = Basophil 0.5 % 0.0-2.0 Auto) Neutro Absolute (test code = Neutro 6.3 x10 1.6-7.4 Absolute) Lymph Absolute (test code = Lymph 1.74 x10 .50-4.60 Absolute) Tyrrell Absolute (test code = Tyrrell .72 x10 .00-1.20 Absolute) Eos Absolute (test code = Eos 0.29 x10 0.00-0.74 Absolute) Baso Absolute (test code = Baso 0.05 x10 0.00-0.21 Absolute)
[2021-09-26 12:30] LABS: Absolute Lymphocytes (CBC) 1.3 K/uL (0.7-4.9); Hematocrit 41.2 % (39.6-49.0); MPV 8.3 fL (7.6-11.3); RBC Red Blood Cell Count 4.09 M/uL (4.33-5.43)
--- NOTE | 2021-09-26 12:39 | RAD REPORT ---
EXAM DESCRIPTION: RAD - Foot Right 2 View - 09/26/2021 12:30 pm CLINICAL HISTORY: cellulitis of big toe COMPARISON: No comparisons FINDINGS: Moderate soft tissue swelling is seen involving the great toe. Moderate hallux valgus evid ent. Heavy atherosclerosis is present. Large posterior calcaneal spur. No definitive radiographic ryan dence to suggest osteomyelitis, however MRI of the foot would be more sensitive for detection of oste omyelitis if clinically needed.
[2021-09-26 12:52] LABS: Bilirubin Direct 0.1 mg/dL (0-0.2); Bilirubin Total 0.6 mg/dL (0.2-1.0); Potassium 4.6 mmol/L (3.5-5.1); Protein, Total 7.7 g/dL (6.4-8.2)
--- NOTE | 2021-09-26 15:11 | RAD REPORT ---
EXAM DESCRIPTION: MRI - Foot Right Wo Cont - 09/26/2021 3:02 pm CLINICAL HISTORY: r/o osteo Foot pain and swelling, evaluate for osteomyelitis. COMPARISON: No comparisons FINDINGS: Hallux valgus deformity is seen with moderate first metacarpal phalangeal joint and interp halangeal joint arthritic changes. No aggressive marrow pattern. No fracture or dislocation. Mild sof t tissue swelling involves the great toe and along the lateral margin of the foot. No MR evidence of osteomyelitis. IMPRESSION: No evidence of osteomyelitis is seen.
[2021-09-26] MEDS ORDERED: CLINDAMYCIN 900MG/D5W 900 MG/50 ML IVPB IV ONE (15:34)
--- NOTE | 2021-09-26 15:45 | ER ---
Nurse's Notes [facility] Name: William Montano Age: 76 yrs Sex: Male : 1945 Arrival Date: 09/26/2021 Time: 11:10 Bed 16 Private MD: Diagnosis: Cellulitis of right toe Presentation: 09/26 11:23 Chief complaint: Patient states: R great toe wound, pain, swelling noticed on Saturday. ll1 No fever. + drainage. Coronavirus screen: Vaccine status: Patient reports receiving the 2nd dose of the covid vaccine. Client denies travel out of the [place] in the last 14 days. At this time, the client does not indicate any symptoms associated with coronavirus-19. Ebola Screen: Patient denies travel to an Ebola-affected area in the 21 days before illness onset. Initial Sepsis Screen: Does the patient meet any 2 criteria? No. Patient's initial sepsis screen is negative. Does the patient have a suspected source of infection? Yes: Skin breakdown/wound. Risk Assessment: Do you want to hurt yourself or someone else? Patient reports no desire to harm self or others. Onset of symptoms was September 23, 2021. 11:23 Method Of Arrival: Ambulatory ll1 11:23 Acuity: ARTEMIO 3 ll1 Historical: - PMHx: 11:22 Gout; ll1 - PSHx: 11:22 Coronary artery bypass graft; back SX; ll1 - Immunization history:: Client reports receiving the 2nd dose of the Covid vaccine. - Social history:: Smoking status: Patient denies any tobacco usage or history of. Screenin:34 Abuse screen: Denies threats or abuse. Denies injuries from another. Nutritional ph screening: No deficits noted. Tuberculosis screening: No symptoms or risk factors identified. Fall Risk No fall in past 12 months (0 pts). No secondary diagnosis (0 pts). IV access (20 points). Ambulatory Aid- Crutches/Cane/Walker (15 pts). Gait- Normal/Bed Rest/Wheelchair (0 pts) Mental Status- Oriented to own ability (0 pts). Total Santos Fall Scale indicates Low Risk Score (25-44 pts). Fall prevention measures have been instituted. Side Rails Up X 2 Placed close to Nursing Station Frequent Obs/Assesments occuring As available Patient and Family Educated on Fall Prevention Program and strategies. Assessment: 12:37 General: Appears in no apparent distress. slender, Behavior is calm, cooperative, ph appropriate for age, Denies fever, chills. Pain: Complains of pain in plantar aspect of right first toe. Neuro: Level of Consciousness is awake, alert, obeys commands, Oriented to person, place, time, situation. Cardiovascular: Capillary refill < 3 seconds in bilateral fingers Patient's skin is warm and dry. Respiratory: Airway is patent Respiratory effort is even, unlabored. Derm: Skin is healthy with good turgor, Skin is pink, warm \T\ dry. Wound noted plantar aspect of right first toe. 15:50 Reassessment: Patient appears in no apparent distress at this time. Patient and/or ph family updated on plan of care and expected duration. Pain level reassessed. Patient is alert, oriented x 3, equal unlabored respirations, skin warm/dry/pink. D/C pending completion of IV antibiotics. Vital Signs: 11:23 BP 130 / 73; Pulse 75; Resp 18; Temp 98.4(O); Pulse Ox 99% ; Weight 83.91 kg; Height 5 ll1 ft. 8 in. (172.72 cm); Pain 5/10; 14:30 ph 15:50 BP 127 / 86; Pulse 71; Resp 18; Temp 98.0; Pulse Ox 99% on R/A; ph 17:00 BP 122 / 79; Pulse 70; Resp 16; Temp 97.9; Pulse Ox 99% on R/A; ph 11:23 Body Mass Index 28.13 (83.91 kg, 172.72 cm) ll1 14:30 pt in MRI ph ED Course: 11:10 Patient arrived in ED. mr 11:18 Zachary Hanson PA is PHCP. cp 11:18 Jonnie Holland MD is Attending Physician. cp 11:22 Arm band placed on Patient placed in an exam room, on a stretcher. ll1 11:24 Triage completed. ll1 11:36 Jordana Savage, COLLEEN is Primary Nurse. ph 12:15 Inserted saline lock: 20 gauge in left forearm, using aseptic technique. Blood ph collected. 12:31 XRAY Foot RIGHT 2 View In Process Unspecified. EDMS 12:34 Patient has correct armband on for positive identification. Bed in low position. Call ph light in reach. Side rails up X 1. Pulse ox on. NIBP on. Door closed. Noise minimized. Warm blanket given. 14:32 Foot Right Wo Cont In Process Unspecified. EDMS 16:55 Wound care: to abrasion, located on plantar aspect of right first toe was cleaned with ph Hibiclens, irrigated with normal saline, dressed with Neosporin, 4X4s, Patient tolerated well. 17:10 No provider procedures requiring assistance completed. IV discontinued, intact, ph bleeding controlled, No redness/swelling at site. Pressure dressing applied. Administered Medications: 15:50 Drug: Clindamycin 900 mg Route: IVPB; Infused Over: 30 mins; Site: left forearm; ph 16:30 Follow up: Response: No adverse reaction; IV Status: Completed infusion ph Outcome: 15:44 Discharge ordered by MD. cp 17:10 Discharged to home ambulatory. ph 17:10 Condition: good 17:10 Discharge instructions given to patient, Instructed on discharge instructions, follow up and referral plans. medication usage, Demonstrated understanding of instructions, follow-up care, medications, Prescriptions given X 2. 17:11 Patient left the ED. ph Signatures: Dispatcher [employer] EDAL Anaya Davies Jordana Savage RN RN ph Zachary Hanson PA PA cp Lewis, Lynsay, RN RN ll1
--- NOTE | 2021-09-26 15:45 | EDPHYS ---
Physician Documentation [facility] Name: William Montano Age: 76 yrs Sex: Male : 1945 Arrival Date: 09/26/2021 Time: 11:10 Bed 16 Private MD: ED Physician Jonnie Holland HPI: 09/26 12:00 This 76 yrs old Male presents to ER via Ambulatory with complaints of Infected toe. cp 12:00 The patient presents with swelling, tenderness, erythema. The complaints affect the cp right great toe. 12:00 Context: resulted from an unknown cause, the patient can fully bear weight, the patient cp is able to ambulate, with mild difficulty. Onset: The symptoms/episode began/occurred 3 day(s) ago. Associated signs and symptoms: Pertinent positives: swelling, warmth, Pertinent negatives: calf tenderness, fever. Severity of symptoms: in the emergency department the symptoms are unchanged, despite home interventions. Historical: - PMHx: 11: Gout; ll1 - PSHx: 11:22 Coronary artery bypass graft; back SX; ll1 - Immunization history:: Client reports receiving the 2nd dose of the Covid vaccine. - Social history:: Smoking status: Patient denies any tobacco usage or history of. ROS: 12:05 MS/extremity: Positive for erythema, pain, swelling, tenderness, warmth, of the right cp great toe. 12:05 Eyes: Negative for injury, pain, redness, and discharge. cp 12:05 Constitutional: Negative for body aches, chills, fever. 12:05 Cardiovascular: Negative for chest pain. 12:05 Respiratory: Negative for cough, shortness of breath, wheezing. 12:05 Abdomen/GI: Negative for abdominal pain, nausea, vomiting, and diarrhea. 12:05 Neuro: Negative for numbness, weakness. 12:05 All other systems are negative. Exam: 12:10 Constitutional: The patient appears in no acute distress, alert, awake, non-toxic, well cp developed, well nourished. 12:10 Head/Face: Normocephalic, atraumatic. cp 12:10 Chest/axilla: Inspection: normal. 12:10 Cardiovascular: Rate: normal, Rhythm: regular, Pulses: Pulses are 2+ in right dorsalis pedis artery. Edema: is not appreciated. 12:10 Respiratory: the patient does not display signs of respiratory distress, Respirations: normal, no use of accessory muscles, no retractions, labored breathing, is not present. 12:10 Abdomen/GI: Exam negative for discomfort, distension, guarding, Inspection: abdomen appears normal. 12:10 Skin: noted erythema and swelling, superficial wound to plantar surface of right great toe, scant drainage, tender to palpation. Vital Signs: 11:23 BP 130 / 73; Pulse 75; Resp 18; Temp 98.4(O); Pulse Ox 99% ; Weight 83.91 kg; Height 5 ll1 ft. 8 in. (172.72 cm); Pain 5/10; 14:30 ph 15:50 BP 127 / 86; Pulse 71; Resp 18; Temp 98.0; Pulse Ox 99% on R/A; ph 17:00 BP 122 / 79; Pulse 70; Resp 16; Temp 97.9; Pulse Ox 99% on R/A; ph 11:23 Body Mass Index 28.13 (83.91 kg, 172.72 cm) ll1 14:30 pt in MRI ph MDM: 11:20 Patient medically screened. cp 12:00 Differential diagnosis: gout, cellulitis, osteomyelitis. cp 15:44 Data reviewed: vital signs, nurses notes, lab test result(s), radiologic studies, MRI, cp plain films. 15:44 Counseling: I had a detailed discussion with the patient and/or guardian regarding: the cp historical points, exam findings, and any diagnostic results supporting the discharge/admit diagnosis, lab results, radiology results, the need for outpatient follow up, a family practitioner, to return to the emergency department if symptoms worsen or persist or if there are any questions or concerns that arise at home. Response to treatment: the patient's symptoms have mildly improved after treatment, and as a result, I will discharge patient. ED course: VSS. Patient appears non-toxic. MRI negative for osteomyelitis. Will discharge with RX for oral antibiotics and recommend f/u with pcp next 2-3 days for wound check. 09/26 11:52 Order name: Basic Metabolic Panel cp 09/26 13:44 Interpretation: Normal except: NA 132; GLUC 108; BUN 22; CRE 1.76; GFR 38. 09/26 11:52 Order name: CBC with Diff; Complete Time: 13:43 cp 09/26 13:44 Interpretation: Normal except: RBC 4.09; MCV 100.8; RDW 16.3; YADIRA% 74.6; LYM% 14.0. cp 09/26 11:52 Order name: Hepatic Function cp 09/26 11:52 Order name: Lipase cp 09/26 11:52 Order name: Procalcitonin; Complete Time: 13:43 cp 09/26 11:52 Order name: Lactate; Complete Time: 13:43 cp 09/26 11:52 Order name: XRAY Foot RIGHT 2 View; Complete Time: 13:43 cp 09/26 11:52 Order name: IV Saline Lock; Complete Time: 12:24 cp 09/26 11:52 Order name: Labs collected and sent; Complete Time: 12:24 cp 09/26 11:52 Order name: ESR; Complete Time: 13:43 cp 09/26 14:30 Interpretation: Abnormal: SED 45. cp 09/26 11:52 Order name: CRP cp 09/26 13:50 Order name: Foot Right Wo Cont; Complete Time: 15:15 EDMS 09/26 11:52 Order name: IV; Complete Time: 12:24 cp 09/26 15:16 Order name: Wound dressing; Complete Time: 17:10 cp 09/26 15:16 Order name: Post-op shoe; Complete Time: 17:10 cp Administered Medications: 15:50 Drug: Clindamycin 900 mg Route: IVPB; Infused Over: 30 mins; Site: left forearm; ph 16:30 Follow up: Response: No adverse reaction; IV Status: Completed infusion ph Disposition: 09/27 04:38 Co-signature as Attending Physician, Jonnie Holland MD I agree with the assessment and sp3 plan of care. Disposition Summary: 09/26/21 15:44 Discharge Ordered Location: Home cp Problem: new cp Symptoms: have improved cp Condition: Stable cp Diagnosis - Cellulitis of right toe cp Followup: cp - With: Private Physician - When: 2 - 3 days - Reason: Recheck today's complaints Discharge Instructions: - Discharge Summary Sheet cp - Cellulitis, Adult cp Forms: - Medication Reconciliation Form cp - Thank You Letter cp - Antibiotic Education cp - Prescription Opioid Use cp Prescriptions: - Clindamycin HCl 300 mg Oral Capsule - take 1 capsule by ORAL route every 6 hours for 10 days; 40 capsule; Refills: 0, cp Product Selection Permitted - Doxycycline Hyclate 100 mg Oral Tablet - take 1 tablet by ORAL route every 12 hours; 20 tablet; Refills: 0, Product cp Selection Permitted Signatures: Dispatcher [employer] Jordana Wilkinson RN RN Zachary Ramirez PA PA Ashu Godwin RN RN ll1 Jonnie Holland MD MD sp3 Corrections: (The following items were deleted from the chart) 09/26 17:03 11:52 Wound Culture+[id number].LAB.BRZ ordered. [facility] 09/27 08:11 08:09 MS/extremity: Positive for erythema, pain, swelling, tenderness, warmth, of the cp right great toe, cp
[2021-09-26 17:18] VITALS: O2SAT 99
[2021-09-26 17:20] VITALS: BP 127/86; TEMP 98
[2021-09-27 07:48] LABS: C-Reactive Protein 24.31
== END 2021-09-26 17:11 | disposition home or self-care (01) ==
LOC: ER 11:06
DX: L03.031 Cellulitis of right toe (principal); Z95.1 Presence of aortocoronary bypass graft
CPT/HCPCS: 36415; 80048; 80076; 83605; 83690; 84145; 85025; 85652; 86140; 96365; 99284